=== PATIENT | female | born 1960 | race Caucasian/White ===

== ENCOUNTER 2020-03-14 09:30 | Outpatient (REF) | payer OTHER, SELFPAY | END 2020-03-14 09:31 | disposition home or self-care (01) | LOC: HO.HMGCLDS 09:30 | PROVIDERS: PCP Internal Medicine; Visit Provider Internal Medicine | DX: Z20.828 Contact with and (suspected) exposure to other viral communicable diseases (principal) | CPT/HCPCS: C9803; U0003 ==

== ENCOUNTER 2020-05-23 13:49 | Outpatient (REF) | payer OTHER, SELFPAY ==
[2020-05-23 16:37] LABS: MANUAL DIFF FLAG NO
[2020-05-23 16:40] LABS: Basophils Absolute Auto 0.1 X10*3/uL (0.0-0.2); Basophils Percent Auto 0.9 % (0-2); Eosinophils Absolute Auto 0.1 X10*3/uL (0.0-0.4); Hematocrit 36.8 % (37-47); Hemoglobin 11.7 g/dl (12.0-16.0); Imm Gran Abs Auto 0.02 X10*3/uL (0.00-0.03); Imm Gran Pct Auto 0.3 % (0.0-0.4); Lymphocytes Absolute Auto 1.9 X10*3/uL (1.2-4.9); Lymphocytes Percent Auto 29.4 % (20-40); Mean Corpuscular HGB Conc 31.8 g/dl (31.0-35.0); Mean Corpuscular Hemoglobin 28.4 pg (27.0-33.0); Mean Corpuscular Volume 89.3 fL (80-98); Mean Platelet Volume 10.8 fL (9.4-12.3); Monocytes Absolute Auto 0.4 X10*3/uL (0.1-1.2); Monocytes Percent Auto 6.7 % (2-11); Neutrophils Percent Auto 60.7 % (45-73); Platelet Count 311 X10*3/uL (160-400); Red Blood Count 4.12 X10*6/uL (4.20-5.50); Red Cell Distribution Width 14.2 % (11.0-16.0); White Blood Count 6.5 X10*3/uL (4.8-10.8)
[2020-05-23 16:44] LABS: Appearance Urine CLEAR; Color Urine YELLOW; Glucose Urine UA NEG (NEG); Leukocyte Esterase Urine 1+ (NEG); Nitrite Urine NEG (NEG); Specific Gravity - Urine >= 1.030 (1.005-1.025); Urine Blood NEG (NEG); Urine Ketones NEG (NEG); Urine Protein NEG (NEG-TRACE)
[2020-05-23 16:49] LABS: Bacteria Urine 1+ /LPF; RBC Urine 0 /HPF (0); Squamous Epithelial Cell Urine 1+ /LPF; WBC Urine 0-2 /HPF (0-4)
[2020-05-23 17:05] LABS: Alanine Aminotransferase 19 U/L (0-31); Albumin Level 4.1 g/dL (3.5-5.0); Alkaline Phosphatase 60 U/L (39-117); Anion Gap 13 (12-20); Aspartate Amino Transferase 20 U/L (5-31); Bilirubin Total 0.3 mg/dL (0.0-1.0); Blood Urea Nitrogen 22 mg/dL (9-16); Calcium 9.1 mg/dL (8.4-10.2); Carbon Dioxide 28 mmol/L (22-29); Chloride 104 mmol/L (96-108); Cholesterol 224 mg/dL; Estimated Glomerular Filt Rate 46; Glucose Random 104 mg/dL (60-115); HDL Cholesterol 71 mg/dL; LDL Cholesterol Calculated 127 mg/dl; Potassium 4.9 mmol/l (3.3-5.1); Sodium 140 mmol/L (135-145); Total Protein 7.2 g/dL (6.5-8.0); Triglycerides 130 mg/dL
[2020-05-23 17:16] LABS: Anion Gap 14 (12-20); Blood Urea Nitrogen 22 mg/dL (9-16); Carbon Dioxide 28 mmol/L (22-29); Chloride 102 mmol/L (96-108); Estimated Glomerular Filt Rate 47; Glucose Random 100 mg/dL (60-115); Potassium 4.6 mmol/l (3.3-5.1); Sodium 139 mmol/L (135-145)
[2020-05-23 17:26] LABS: SARS COV2 IgG Positive (Negative)
[2020-05-23 17:27] LABS: Free T4 (Free Thyroxine) 1.01 ng/dL (0.71-1.85); Thyroid Stimulating Hormone 1.04 uIU/mL (0.32-4.0); Vitamin D 25-OH Total 24.8 ng/mL (>30)
[2020-05-23 17:29] LABS: Erythrocyte Sedimentation Rate 18 MM/HR (0-20)
[2020-05-23 17:49] LABS: Folate 15.3 ng/mL (> or = 4.0); Vitamin B12 749 pg/mL (200-900)
[2020-05-24 18:37] LABS: Lyme Abs Screen <0.90 index
[2020-05-24 20:58] LABS: IgA 236 mg/dL (70-320); IgG 1474 mg/dL (600-1540); IgM 29 mg/dL (50-300)
== END 2020-05-23 13:50 | disposition home or self-care (01) ==
LOC: HO.HMGCLDS 13:49
PROVIDERS: PCP Internal Medicine; Visit Provider Psychiatry & Neurology Neurology
DX: G62.9 Polyneuropathy, unspecified (principal); I10 Essential (primary) hypertension; E78.00 Pure hypercholesterolemia, unspecified; F41.9 Anxiety disorder, unspecified; K21.9 Gastro-esophageal reflux disease without esophagitis; Z01.84 Encounter for antibody response examination
CPT/HCPCS: 36415; 80051; 80053; 80061; 81001; 82306; 82565; 82607; 82746; 82784; 82947; 84439; 84443; 84520; 85025; 85652; 86038; 86039; 86334; 86618; 86769

== ENCOUNTER 2020-05-31 09:15 | Outpatient (REF) | payer OTHER, SELFPAY ==
[2020-05-31 09:56] LABS: Glucose Urine UA NEG (NEG); Leukocyte Esterase Urine 1+ (NEG); Nitrite Urine NEG (NEG); Specific Gravity - Urine 1.025 (1.005-1.025); Urine Blood NEG (NEG); Urine Ketones NEG (NEG); Urine Protein NEG (NEG-TRACE)
[2020-05-31 10:10] LABS: Appearance Urine HAZY; Color Urine YELLOW
[2020-05-31 10:15] LABS: Bacteria Urine TRACE /LPF; Mucus Urine 1+ /LPF; RBC Urine 0 /HPF (0); Squamous Epithelial Cell Urine 1+ /LPF; WBC Urine 0-2 /HPF (0-4)
== END 2020-05-31 09:16 | disposition home or self-care (01) ==
LOC: HO.LAB 09:15
PROVIDERS: PCP Internal Medicine; Visit Provider Internal Medicine
DX: I10 Essential (primary) hypertension (principal)
CPT/HCPCS: 81001

== ENCOUNTER 2020-07-04 14:48 | Outpatient (REF) | payer OTHER, SELFPAY ==
--- NOTE | ~2020-07-04 | MM_ITS ---
EXAMINATION: MM SCREENING DIGITAL BREAST TOMOSYNTHESIS, BILATERAL CLINICAL INFORMATION: Screening. Asymptomatic. The lifetime risk of breast cancer based on the Tyrer-Cuzick Model is 12%. COMPARISON: Mammography: 06/29/2019, 02/24/2018, 02/06/2017 TECHNIQUE: Digital breast tomosynthesis is performed in both the craniocaudal and mediolateral oblique views along with computer-aided detection (CAD). Synthesized 2D images are generated from the tomosynthesis. FINDINGS: The breasts are almost entirely fatty (ACR BI-RADS breast composition Category a). There are no significant masses, abnormal calcifications, or other abnormalities. Background stromal markings are stable. There is biopsy clip marker again seen posterior 3:00 left breast. MM/MM tomosynthesis screening BI IMPRESSION: No mammographic evidence of malignancy. ASSESSMENT: BI-RADS 1: Negative RECOMMENDATION: Routine annual mammography screening. This patient's information was entered into a reminder system with a target due date for their next mammogram.
== END 2020-07-04 14:49 | disposition home or self-care (01) ==
LOC: HO.MAMMO 14:48
PROVIDERS: PCP Internal Medicine; Visit Provider Internal Medicine
DX: Z12.31 Encounter for screening mammogram for malignant neoplasm of breast (principal)
CPT/HCPCS: 77063; 77067

== ENCOUNTER 2020-09-11 13:56 | Outpatient (REF) | payer OTHER, SELFPAY ==
[2020-09-11 16:34] LABS: MANUAL DIFF FLAG NO
[2020-09-11 16:40] LABS: Basophils Absolute Auto 0.1 X10*3/uL (0.0-0.2); Basophils Percent Auto 0.8 % (0-2); Eosinophils Absolute Auto 0.1 X10*3/uL (0.0-0.4); Eosinophils Percent Auto 1.5 % (0-4); Hematocrit 35.9 % (37-47); Hemoglobin 11.5 g/dl (12.0-16.0); Imm Gran Abs Auto 0.01 X10*3/uL (0.00-0.03); Imm Gran Pct Auto 0.2 % (0.0-0.4); Immature Retic Fraction 8.5 % (3.0-15.9); Lymphocytes Percent Auto 31.2 % (20-40); Mean Corpuscular Hemoglobin 28.1 pg (27.0-33.0); Mean Corpuscular Volume 87.8 fL (80-98); Mean Platelet Volume 10.8 fL (9.4-12.3); Monocytes Absolute Auto 0.4 X10*3/uL (0.1-1.2); Monocytes Percent Auto 6.3 % (2-11); Neutrophils Absolute Auto 3.9 X10*3/uL (2.0-8.3); Platelet Count 299 X10*3/uL (160-400); Red Blood Count 4.09 X10*6/uL (4.20-5.50); Red Cell Distribution Width 13.8 % (11.0-16.0); Retic HGB Equivalent 31.8 pg (30.0-35.0); Reticulocyte Percent 1.2 % (0.5-1.8); White Blood Count 6.5 X10*3/uL (4.8-10.8)
[2020-09-11 16:46] LABS: Glucose Urine UA NEG (NEG); Leukocyte Esterase Urine 1+ (NEG); Nitrite Urine NEG (NEG); PH 5.5 (5.0-8.0); Specific Gravity - Urine >= 1.030 (1.005-1.025); Urine Blood NEG (NEG); Urine Ketones NEG (NEG); Urine Protein NEG (NEG-TRACE)
[2020-09-11 16:48] LABS: Appearance Urine CLEAR; Color Urine YELLOW
[2020-09-11 16:52] LABS: Bacteria Urine TRACE /LPF; RBC Urine 0 /HPF (0); Squamous Epithelial Cell Urine 1+ /LPF
[2020-09-11 17:02] LABS: Alanine Aminotransferase 25 U/L (0-31); Albumin Level 3.9 g/dL (3.5-5.0); Alkaline Phosphatase 62 U/L (39-117); Anion Gap 14 (12-20); Aspartate Amino Transferase 23 U/L (5-31); Bilirubin Total 0.3 mg/dL (0.0-1.0); Blood Urea Nitrogen 18 mg/dL (9-16); Carbon Dioxide 25 mmol/L (22-29); Chloride 102 mmol/L (96-108); Estimated Glomerular Filt Rate 52; Glucose Random 115 mg/dL (60-115); Iron 55 mcg/dL (30-160); Percent Iron Saturation 16 % (15-50); Potassium 4.1 mmol/L (3.3-5.1); Sodium 137 mmol/L (135-145); Total Iron Binding Capacity 340 mcg/dL (228-428); Unsaturated Iron Binding 285 ug/dL
[2020-09-11 17:22] LABS: Ferritin 30 ng/mL (10-250)
[2020-09-11 17:36] LABS: Folate 17.3 ng/mL (> or = 4.0); Vitamin B12 732 pg/mL (200-900)
== END 2020-09-11 13:57 | disposition home or self-care (01) ==
LOC: HO.HMGCLDS 13:56
PROVIDERS: PCP Internal Medicine; Visit Provider Internal Medicine
DX: N28.9 Disorder of kidney and ureter, unspecified (principal); D64.9 Anemia, unspecified
CPT/HCPCS: 36415; 80053; 81001; 82607; 82728; 82746; 83540; 85025; 85045

== ENCOUNTER 2020-11-27 10:23 | Outpatient (REF) | payer OTHER, SELFPAY ==
[2020-12-01 01:01] LABS: Arsenic, 24H Urine 14 mcg/L (<=80); Cadmium, 24H Urine <0.5 mcg/L (<=5.0); Lead, 24H Urine <10 mcg/L (<80); Mercury, 24H Urine <4 mcg/L (<=20)
== END 2020-11-27 10:24 | disposition home or self-care (01) ==
LOC: HO.LNP 10:23
PROVIDERS: Visit Provider Psychiatry & Neurology Neurology
DX: G62.9 Polyneuropathy, unspecified (principal)
CPT/HCPCS: 82175; 82300; 83655; 83825

== ENCOUNTER → 2021-01-23 11:22 | Outpatient (BNVA) | payer OTHER, SELFPAY | PROVIDERS: PCP Internal Medicine; Referring Provider Internal Medicine; Visit Provider Surgery Vascular Surgery ==

== ENCOUNTER 2021-01-29 12:50 | Outpatient (REF) | payer OTHER, SELFPAY ==
--- NOTE | ~2021-01-29 | US_ITS ---
EXAMINATION: BILATERAL LOWER EXTREMITY VENOUS ULTRASOUND (Reflux Exam) CLINICAL INDICATION: Lower extremity varicose veins with insufficiency. COMPARISON: None. TECHNIQUE: Color flow triplex imaging and compression Doppler was performed to evaluate both the deep and the superficial systems bilaterally. To evaluate the superficial system, the examination was performed in the upright position. Color-flow Doppler ultrasound and compression ultrasound were utilized. In addition, maneuvers were utilized to demonstrate reflux. FINDINGS: 1. DEEP VENOUS ULTRASOUND OF THE RIGHT LOWER EXTREMITY: Common Femoral Vein: Compressible, normal respiratory variation and augmented flow. Femoral Vein: Compressible, normal color flow and augmentation. Popliteal Vein: Compressible, normal augmentation. Deep Reflux: There is greater than 1 second of reflux within the femoral vein and greater than 1 second of reflux within the popliteal vein. There is no evidence of a Neal's cyst. 2. SUPERFICIAL ULTRASOUND WITH DOPPLER OF RIGHT LOWER EXTREMITY GREAT SAPHENOUS VEIN: Saphenofemoral junction: 1.2 cm; Reflux: Greater than 3 seconds. The great saphenous vein from the proximal thigh to the ankle is not visualized consistent with prior treatment. DUPLICATED GREAT SAPHENOUS VEIN: Lateral, 0.8 cm at the junction, greater than 2.4 seconds of reflux. SMALL SAPHENOUS VEIN: Saphenopopliteal junction: 0.3 cm; No evidence of reflux. Midcalf: 0.2 cm; No evidence of reflux. Distal calf: 0.4 cm; No evidence of reflux. VEIN OF GIACOMINI: None imaged. PERFORATORS: None imaged VARICOSITIES: Proximal thigh arising from the very proximal saphenous vein at the junction, 0.7 cm, greater than 2 seconds of reflux. Distal thigh, 0.4 cm, greater than 2.6 seconds of reflux. Midcalf, 0.4 cm, greater than 3.3 seconds of reflux. Distal calf, 0.3 cm, no reflux. At knee, 0.5 cm, occluded. 3. DEEP VENOUS ULTRASOUND OF THE LEFT LOWER EXTREMITY: Common Femoral Vein: Compressible, normal respiratory variation and augmented flow. Femoral Vein: Compressible, normal color flow and augmentation. Popliteal Vein: Compressible, normal augmentation. Deep Reflux: There is reflux throughout the deep system measuring 0.9 seconds at the common femoral vein, greater than 3 seconds within the femoral vein and greater than 0.8 seconds within the popliteal vein. There is a 5.5 x 2.3 x 3.3 cm left popliteal fossa Neal's cyst. 4. SUPERFICIAL ULTRASOUND WITH DOPPLER OF LEFT LOWER EXTREMITY GREAT SAPHENOUS VEIN: Saphenofemoral junction: 1.1 cm; Reflux: Greater than 2.6 seconds. Proximal thigh: 0.7 cm; Reflux: No evidence of reflux. Midthigh: Not visualized. Above knee: Not visualized. At knee: 0.7 cm; Reflux: 1.3 seconds Below knee: 0.6 cm; Reflux: 1.2 seconds Midcalf: 0.3 cm; Reflux: No evidence of reflux. Ankle: 0.2 cm; Reflux: No evidence of reflux. DUPLICATED GREAT SAPHENOUS VEIN: Lateral, 0.5 cm, no reflux. SMALL SAPHENOUS VEIN: Saphenopopliteal junction: 0.3 cm; No evidence of reflux. Midcalf: 0.2 cm; No evidence of reflux. Distal calf: 0.2 cm; No evidence of reflux. VEIN OF GIACOMINI: None Imaged. PERFORATORS: Proximal calf, 0.2 cm, no reflux. VARICOSITIES: Proximal thigh, 0.8 cm, greater than 2.7 seconds of reflux. Distal thigh, 0.7 cm, greater than 2.9 seconds of reflux. Proximal calf, 0.5 cm, greater than 3.2 seconds of reflux. Midcalf, 0.2 cm, greater than 1.2 seconds of reflux. US/US venous duplex LE BI IMPRESSION: 1. The right great saphenous vein is patent at the saphenofemoral junction demonstrating reflux. The remainder of the great saphenous vein from the proximal thigh to the ankle is not visualized consistent with prior treatment. 2. There is evidence of left great saphenous venous insufficiency as above. The left great saphenous vein is not seen at the midthigh and above the knee consistent with prior treatment. 3. Duplicated lateral right great saphenous venous insufficiency. 4. Bilateral refluxing varicosities. 5. Bilateral deep venous insufficiency. 6. No evidence of DVT. 7. Occluded varicosity at the right knee consistent with superficial thrombophlebitis.
== END 2021-01-29 12:51 | disposition home or self-care (01) ==
LOC: HO.US 12:50
PROVIDERS: PCP Internal Medicine; Visit Provider Surgery Vascular Surgery
DX: I83.893 Varicose veins of bilateral lower extremities with other complications (principal); I83.12 Varicose veins of left lower extremity with inflammation
CPT/HCPCS: 93970

== ENCOUNTER 2021-02-05 10:26 | Day surgery (SDC) | payer OTHER, SELFPAY ==
[2021-01-16 14:59] LABS: MANUAL DIFF FLAG NO
[2021-01-16 15:02] LABS: Basophils Absolute Auto 0.1 X10*3/uL (0.0-0.2); Eosinophils Absolute Auto 0.1 X10*3/uL (0.0-0.4); Hematocrit 37.7 % (37-47); Hemoglobin 11.9 g/dl (12.0-16.0); Imm Gran Abs Auto 0.04 X10*3/uL (0.00-0.03); Imm Gran Pct Auto 0.6 % (0.0-0.4); Lymphocytes Absolute Auto 2.3 X10*3/uL (1.2-4.9); Lymphocytes Percent Auto 32.3 % (20-40); Mean Corpuscular HGB Conc 31.6 g/dl (31.0-35.0); Mean Corpuscular Hemoglobin 28.1 pg (27.0-33.0); Mean Corpuscular Volume 88.9 fL (80-98); Mean Platelet Volume 10.3 fL (9.4-12.3); Monocytes Absolute Auto 0.6 X10*3/uL (0.1-1.2); Monocytes Percent Auto 8.5 % (2-11); Neutrophils Percent Auto 55.6 % (45-73); Platelet Count 293 X10*3/uL (160-400); Red Blood Count 4.24 X10*6/uL (4.20-5.50); White Blood Count 7.1 X10*3/uL (4.8-10.8)
[2021-01-16 15:15] LABS: Iron 54 mcg/dL (30-160); Percent Iron Saturation 17 % (15-50); Total Iron Binding Capacity 311 mcg/dL (228-428); Unsaturated Iron Binding 257 ug/dL
[2021-01-16 15:35] LABS: Ferritin 40 ng/mL (10-250)
[2021-01-31 10:39] VITALS: BMI 41.5
[2021-02-05 10:59] VITALS: BP 154/80; PULSE 80; RESP 16; TEMP 36.6; O2SAT 97; BMI 40.6
--- NOTE | 2021-02-05 11:01 | P.CONAN_ITS ---
[facility] Active Problems Active Problems: All Active Problems (Updated 01/31/21 @ 10:36 by Gabriela parry RN) Renal insufficiency (Acute) Anemia (Acute) Hip pain, left (Acute) Thrombophlebitis (Acute) Varicose veins of left lower extremity with inflammation (Acute) COVID-19 virus infection (Acute) Hypertension (Acute) Obesity (Acute) Vitamin D deficiency (Acute) Anxiety (Acute) Hypercholesterolemia (Acute) GERD (gastroesophageal reflux disease) (Acute) Asthma (Acute) Peripheral neuropathy (Acute) Past Medical History Medical History Anxiety Asthma COVID-19 virus infection GERD (gastroesophageal reflux disease) Hiatal hernia Hypercholesterolemia Hypertension Iron deficiency anemia Migraine Obesity Peripheral neuropathy Peripheral vascular disease Synovial cyst of popliteal space [Neal], left knee Vitamin D deficiency Family History Family History Father Lung cancer Mother Lung cancer Paternal Grandfather Lung cancer Paternal Uncle Lung cancer Sister Pancreatic cancer Family history of problems with anesthesia: No Surgical History Surgical History History of appendectomy History of carpal tunnel release History of section History of esophagogastroduodenoscopy (EGD) History of vein stripping Hx of colonoscopy History of Problems with Anesthesia: No Social History Social History Housing: House Alcohol intake: current Alcohol intake frequency: a few times a week Alcohol type: beer and wine Patient Tobacco Use Status: Former Tobacco user Advance Directives: No Advance Directives Information Provided: Yes service: No Current occupational status: retired Meds Allergies Allergy/AdvReac Type Severity Reaction Status Date / Time codeine Allergy Unknown Unknown Verified 01/31/21 10:38 latex [Latex] Allergy Unknown BURNING Verified 01/31/21 10:38 oxycodone [Oxycodone] Allergy Unknown FAINT/TACHY Verified 01/31/21 10:38 CARDIA Active Medications: Current Medications Lactated Ringer's (Lr) 1,000 mls @ 50 mls/hr IVCONT .Q20H KRISTIN Sodium Biphosphate/Sodium Phosphate (Sodium Phosphate,Mchenry-Dibasic 133 Ml Enema) 133 ml MS ONCE PRN PRN Reason: Poor Colonoscopy Prep Results Home Medications Medication Instructions Recorded Confirmed Last Taken Type alprazolam 0.5 mg tablet 0.5 mg PO BEDTIME PRN 03/14/20 01/31/21 Unknown History jlpeeed-hwovdhsuapaiu-jjzgiczk 250 2 tab PO Q6H PRN 03/14/20 01/31/21 Unknown History mg-250 mg-65 mg tablet (Excedrin Migraine) hydrocortisone 2.5 % topical cream 1 applic TOPICAL ONCE PRN g 03/14/20 01/31/21 Unknown History gabapentin 300 mg capsule 300 mg PO BEDTIME 01/23/21 01/31/21 Unknown History Exam Exam Date and Time: February 05, 2021 1101 Height,Weight and Vital Signs: Height 5 ft 1 in Weight 99.79 kg Pertinent Lab Results Pertinent Lab Results: Laboratory Tests 01/16/21 01/16/21 14:50 14:50 WBC 7.1 RBC 4.24 Hgb 11.9 L Hct 37.7 MCV 88.9 MCH 28.1 MCHC 31.6 RDW 14.0 Plt Count 293 MPV 10.3 Immature Gran % (Auto) 0.6 H Neut % (Auto) 55.6 Lymph % (Auto) 32.3 Mchenry % (Auto) 8.5 Eos % (Auto) 2.0 Baso % (Auto) 1.0 Lymph # (Auto) 2.3 Mchenry # (Auto) 0.6 Eos # (Auto) 0.1 Baso # (Auto) 0.1 Abs Immat Gran (auto) 0.04 H Absolute Neuts (auto) 4.0 Absolute Nucleated RBC 0.000 Nucleated RBC % (auto) 0.0 Iron 54 TIBC 311 % Saturation 17 Unsat Iron Binding 257 Ferritin 40 Airway Mallampati Class: II (Caps laterally) TM Dist: >3cm Neck ROM: Full Heart: rrr Lungs: cta Assessment and Plan Assessment Anesthesia Assessment: Anesthesia Plan Discussed and Chart Reviewed Final Anesthetic Review Family History of Problems with Anesthesia: No History of Problems with Anesthesia: No NPO: Yes ASA Class: III Final Preanesthetic Review: No Changes in Pt Med Stat and Consent Obtained/Reviewed Patient Risk: Intermediate Procedure Risk: Intermediate Anesthetic Plan Anesthetic Plan: MAC: Disposition: Standard PACU
[2021-02-05] MEDS: Lactated Ringers 1,000 ML 50 ML IVCONT (11:09)
[2021-02-05 12:31] VITALS: BP 141/92; PULSE 78; RESP 16; TEMP 36.8; O2SAT 97
--- NOTE | 2021-02-05 12:41 | PM.OP ---
Brief Operative Note Date of Service: 02/05/21 Pre-op diagnosis: Anemia, GERD Post-op diagnosis: other (Hiatal hernia, Gastric polyps, Diverticulosis) Procedure: EGD with biopsies, Colonoscopy to the cecum and TI Surgeon: Rolando Miner Anesthesia: MAC Was an Trailer Body Assembler used for this Procedure?: No Estimated blood loss (mL): 3.0 Pathology: other (A. Descending duodenum B. Gastric polyps C. EG Junction at 35cm) Condition: stable Disposition: PACU
[2021-02-05 12:46] VITALS: BP 129/73; PULSE 69; RESP 18; O2SAT 97
--- NOTE | 2021-02-05 12:57 | OP_ITS ---
SURGEON: Rolando Miner MD INDICATIONS: The patient presents for evaluation of iron-deficiency anemia and gastroesophageal reflux. Full consent has been obtained from her for both procedures, including risks of bleeding and perforation. PREOPERATIVE DIAGNOSIS: POSTOPERATIVE DIAGNOSIS: PROCEDURE PERFORMED: Esophagogastroduodenoscopy with biopsies, and colonoscopy to the cecum and terminal ileum. ESTIMATED BLOOD LOSS: COMPLICATIONS: ANESTHESIA: Monitored anesthesia care. ASSISTANTS: SPECIMENS: PREOPERATIVE DIAGNOSES: Iron-deficiency anemia and gastroesophageal reflux. POSTOPERATIVE DIAGNOSES: Iron-deficiency anemia and gastroesophageal reflux, hiatal hernia, gastric polyps, rule out celiac disease, diverticulosis, and internal hemorrhoids. DESCRIPTION OF PROCEDURE: The patient was placed in the left lateral decubitus position. The Olympus video gastroscope was passed in the posterior oropharynx and upper esophagus under direct vision. The scope was passed slowly into the distal esophagus. The gastroesophageal junction appeared at 35 cm. Extending from this to 34 cm, were some areas of irregularity and possible small areas of Garcia's mucosa. There was no evidence of any esophagitis nor any lesions. There was a moderate-sized hiatal hernia. The scope was advanced to pylorus and the duodenum was cannulated to the descending portion. The duodenum including the bulb appeared normal without mass or ulceration. Biopsies were obtained from the second and third portions of duodenum. The scope was withdrawn back into the stomach. The gastric antrum and body appeared normal with good peristalsis. The scope was retroflexed visualizing the proximal stomach carefully, which appeared normal, other than multiple hyperplastic appearing gastric polyps, several of which were biopsied. There was no mass nor ulceration. The scope was straightened out and withdrawn back into the esophagus. Biopsies were obtained at the EG junction between 34 and 35 cm. Proximal to this, the esophageal mucosa appeared normal. The scope was withdrawn from the patient. She was turned around for the colonoscopy. The digital rectal exam revealed no abnormalities. The Olympus video pediatric colonoscope was entered into the rectum and advanced to the cecum with the assistance of abdominal wall pressure. Once in the cecum, I did identify normal-appearing cecal pouch with appendiceal orifice and a normal-appearing ileocecal valve. The terminal ileum was cannulated and appeared normal. The scope was withdrawn back in the colon. The entire cecum and ileocecal valve appeared normal. The scope was then slowly withdrawn assessing all mucosal surfaces carefully. Preparation was excellent. I did not visualize any sign of polyps, colitis, nor angiodysplasia. There was a mild amount of sigmoid diverticulosis. In the rectum, scope was retroflexed visualizing small internal hemorrhoids, but no other pathology. The rectal mucosa appeared normal. The scope was straightened out and withdrawn from the patient. She tolerated both procedures well and was returned to the recovery area in stable condition. IMPRESSION: 1. Hiatal hernia, gastroesophageal reflux, rule out Garcia's esophagus. 2. Gastric polyps. 3. Rule out celiac disease. 4. Diverticulosis. 5. Internal hemorrhoids. PLAN: The results of biopsy will be checked. She will continue her omeprazole for continued symptomatic relief of her reflux. She was advised not to use any aspirin and NSAIDs for 1 week. She was advised to go back on her iron in regard to the anemia. Given today's negative colonoscopy, a negative colonoscopy in 2011, and no family history of colon cancer, I would recommend a repeat colonoscopy in 10 years for further screening. Laboratories in January showed an iron of 54, iron saturation of 17% and ferritin of 40. Her hemoglobin in January was 11.9 compared to a level of 11.5 in September. Her iron studies in January were very similar to the one is done in October. At this point, I do not think she needs any further evaluation with anything such as a small bowel video capsule study given that her laboratories are very stable and she has had no signs of bleeding. She will continue iron. If things are stable, she will see me on a p.r.n. basis. MD CRISTHIAN Nance/KRYS / [id number]
== END 2021-02-05 13:10 | disposition home or self-care (01) ==
PROVIDERS: PCP Internal Medicine; Visit Provider Internal Medicine
PROC: (CPT 45378; principal; 2021-02-05 12:10)
DX: D50.9 Iron deficiency anemia, unspecified (principal); K57.30 Diverticulosis of large intestine without perforation or abscess without bleeding; K64.8 Other hemorrhoids; K21.9 Gastro-esophageal reflux disease without esophagitis; K31.7 Polyp of stomach and duodenum; K44.9 Diaphragmatic hernia without obstruction or gangrene; I10 Essential (primary) hypertension; J45.909 Unspecified asthma, uncomplicated; Z79.899 Other long term (current) drug therapy; Z79.51 Long term (current) use of inhaled steroids; Z86.16 Personal history of COVID-19; Z87.891 Personal history of nicotine dependence
CPT/HCPCS: 45378; 43239; 36415; 82728; 83540; 85025; 88305; 88342

== ENCOUNTER 2021-03-12 11:02 | Outpatient (REF) | payer OTHER, SELFPAY ==
--- NOTE | ~2021-03-12 | XR_ITS ---
EXAMINATION: XR KNEE, RIGHT CLINICAL INFORMATION: Pain COMPARISON: None TECHNIQUE: Four views of the right knee. FINDINGS: Bone alignment is normal. No fracture or dislocation is seen. The femoral tibial joints are normal. There are small osteophytes at the patellofemoral joint. There is no joint effusion. XR/XR knee RT 4V IMPRESSION: Small osteophytes at the patellofemoral joint.
== END 2021-03-12 11:03 | disposition home or self-care (01) ==
LOC: HO.XRAY 11:02
PROVIDERS: PCP Internal Medicine; Visit Provider Internal Medicine
DX: M25.561 Pain in right knee (principal)
CPT/HCPCS: 73564

== ENCOUNTER → 2021-04-04 08:53 | Outpatient (BNVA) | payer OTHER, SELFPAY | PROVIDERS: PCP Internal Medicine; Visit Provider Physician Assistant | DX: S83.8X1A Sprain of other specified parts of right knee, initial encounter (principal); M17.11 Unilateral primary osteoarthritis, right knee | CPT/HCPCS: 20610; J1040 ==

== ENCOUNTER → 2021-05-16 13:35 | Outpatient (BNVA) | payer OTHER, SELFPAY | PROVIDERS: PCP Internal Medicine; Visit Provider Physician Assistant ==

== ENCOUNTER 2021-06-01 09:00 | Outpatient (RCR) | payer OTHER, SELFPAY ==
--- NOTE | 2021-04-20 10:04 | MHC.PT.EP ---
[facility] [place] Office [place] Office [place] Office [address] Felicita Guillory [address] [phone] F: [phone] F: [phone] F: [phone] F: [phone] Physical Therapy Plan of Care Date of Evaluation: Date of Surgery: Diagnosis: unilateral primary OA injury R meniscus Assessment: 61 y/o F referred to PT with primary OA R knee and injury of R meniscus. Reports pain and difficulty with stepping in/out of bath, standing, walking, stairs (step to), climbing ladder, and riding bike. S/s consistent with menisical injury. Examination shows decreased R knee AROM 0-2-100, decreased R hip/knee strength, TTP R lateral mensicus, significant lateral posiitoning of patella and lateral tracking of patella, and impaired gait pattern. Recommend PT 2x/week for 5 weeks to address impairments, implement HEP, and optimize functional mobility. Pt has high co-pay and would like to come 1x/week. Frequency and Duration: The patient will be seen 1x/week for 5 weeks Short Term Goals: 3 weeks 1. I with HEP 2. Improve knee AROM 0-110 Mcfp Goals: 5 weeks 1. I with HEP and self management of sx 2. Pt will improve R LE strength by one MMT to facilitate walking 3. Pt will improve knee flexion to 115 to facilitate ascend/descend stairs in step through pattern Treatment Plan: Modalities to reduce pain, spasms and effusion. Manual therapy to restore motion and function. Therapeutic exercise to improve strength and flexibility. Neuromuscular re-education for posture and balance. Therapeutic activities to return to functional activities of daily living. Electronically signed by: Hilary Engle PT Please sign and return to therapist. Thank you for your referral.
--- NOTE | 2021-06-01 10:16 | MHC.PT.DC ---
[facility] [place] Office [place] Office [place] Office [address] Felicita Guillory [address] [phone] F: [phone] F: [phone] F: [phone] F: [phone] Physical Therapy Discharge Report Diagnosis: unilateral primary OA injury R meniscus Date of Surgery: Date of Evaluation: 04/20/21 Date of Discharge: 06/01/21 Treatments to Date: 4 Cancellations to Date: 0 No Shows to Date: 0 Discharge Status: Improved Function Independent with HEP Discharge Summary: Fatigue following 3 sets of SLR. Discussed exercise progression for self management and she will also start senior center classes 2x/week. She reports feeling ready for d/c and will continue HEP. No further questions. Electronically signed by: Hilary Engle PT Please sign and return to therapist. Thank you for your referral.
== END 2021-06-01 10:18 | disposition home or self-care (01) ==
LOC: HO.PTCHIC 09:00
PROVIDERS: PCP Internal Medicine; Visit Provider Physician Assistant
DX: M17.11 Unilateral primary osteoarthritis, right knee (principal); S83.8X1D Sprain of other specified parts of right knee, subsequent encounter
CPT/HCPCS: 97110; 97140; 97161

== ENCOUNTER → 2021-07-30 10:27 | Outpatient (REF) | payer OTHER, SELFPAY ==
--- NOTE | 2021-07-30 10:32 | ECG_ITS ---
Test Reason : PREOP Blood Pressure : / mmHG Vent. Rate : 069 BPM Atrial Rate : 069 BPM P-R Int : 172 ms QRS Dur : 078 ms QT Int : 364 ms P-R-T Axes : 034 021 032 degrees QTc Int : 390 ms Normal sinus rhythm Normal ECG When compared with ECG of 30-JAN-2011 21:13, No significant change was found Referred By: Yang Cat Electronically Signed By:THIERRY MCGOWAN
[2021-07-30 10:42] LABS: MANUAL DIFF FLAG NO
[2021-07-30 11:20] LABS: Basophils Absolute Auto 0.1 X10*3/uL (0.0-0.2); Basophils Percent Auto 1.1 % (0-2); Eosinophils Absolute Auto 0.1 X10*3/uL (0.0-0.4); Eosinophils Percent Auto 2.3 % (0-4); Hematocrit 39.1 % (37.0-47.0); Imm Gran Abs Auto 0.03 X10*3/uL (0.00-0.03); Imm Gran Pct Auto 0.5 % (0.0-0.4); Lymphocytes Absolute Auto 1.7 X10*3/uL (1.2-4.9); Lymphocytes Percent Auto 30.3 % (20-40); Mean Corpuscular HGB Conc 30.7 g/dl (31.0-35.0); Mean Corpuscular Hemoglobin 28.2 pg (27.0-33.0); Mean Platelet Volume 10.9 fL (9.4-12.3); Monocytes Absolute Auto 0.4 X10*3/uL (0.1-1.2); Monocytes Percent Auto 7.6 % (2-11); Neutrophils Absolute Auto 3.3 x10*3/uL (2.0-8.3); Neutrophils Percent Auto 58.2 % (45-73); Platelet Count 275 X10*3/uL (160-400); Red Blood Count 4.25 X10*6/uL (4.20-5.50); Red Cell Distribution Width 13.6 % (11.0-16.0); White Blood Count 5.6 X10*3/uL (4.8-10.8)
[2021-07-30 11:26] LABS: Prothrombin Time 11.7 SEC (9.9-13.0)
[2021-07-30 12:08] LABS: Alanine Aminotransferase 23 U/L (0-31); Albumin Level 3.9 g/dL (3.5-5.0); Alkaline Phosphatase 63 U/L (39-117); Anion Gap 11 (12-20); Aspartate Amino Transferase 21 U/L (5-31); Bilirubin Total 0.3 mg/dL (0.0-1.0); Blood Urea Nitrogen 12 mg/dL (9-16); Calcium 9.3 mg/dL (8.4-10.2); Carbon Dioxide 28 mmol/L (22-29); Chloride 105 mmol/L (96-108); Estimated Glomerular Filt Rate 59; Glucose Random 73 mg/dL (60-115); Potassium 4.8 mmol/L (3.3-5.1); Sodium 139 mmol/L (135-145)
== END ==
LOC: HO.CARD 10:27
PROVIDERS: PCP Internal Medicine; Visit Provider Nurse Practitioner Family
DX: Z01.818 Encounter for other preprocedural examination (principal); I10 Essential (primary) hypertension
CPT/HCPCS: 36415; 80053; 85025; 85610; 93005

== ENCOUNTER 2021-08-10 09:28 | Outpatient (REF) | payer OTHER, SELFPAY ==
--- NOTE | ~2021-08-10 | MM_ITS ---
EXAMINATION: MM SCREENING DIGITAL BREAST TOMOSYNTHESIS, BILATERAL CLINICAL INFORMATION: Screening. Asymptomatic. The lifetime risk of breast cancer based on the Tyrer-Cuzick Model is 6%. COMPARISON: Mammography: 07/04/2020, 06/29/2019, 02/24/2018 TECHNIQUE: Digital breast tomosynthesis is performed in both the craniocaudal and mediolateral oblique views along with computer-aided detection (CAD). Synthesized 2D images are generated from the tomosynthesis. Additional right MLO view is provided. FINDINGS: The breasts are almost entirely fatty (ACR BI-RADS breast composition Category a). Background stromal markings are similar to prior studies. There are no significant masses, abnormal calcifications, or other abnormalities. There is a biopsy clip marker again seen posterior 3:00 left breast. No significant changes. MM/MM tomosynthesis screening BI IMPRESSION: No mammographic evidence of malignancy. ASSESSMENT: BI-RADS 1: Negative RECOMMENDATION: Routine annual mammography screening. This patient's information was entered into a reminder system with a target due date for their next mammogram.
== END 2021-08-10 09:29 | disposition home or self-care (01) ==
LOC: HO.MAMMO 09:28
PROVIDERS: PCP Internal Medicine; Visit Provider Internal Medicine
DX: Z12.31 Encounter for screening mammogram for malignant neoplasm of breast (principal)
CPT/HCPCS: 77063; 77067

== ENCOUNTER 2022-07-29 08:20 | Outpatient (REF) | payer OTHER, SELFPAY ==
[2022-07-29 08:57] LABS: Binax Internal Control QC Valid; Binax Now Covid-19 Ag Negative (Negative); Binax Performed by: PAULP
== END 2022-07-29 08:21 | disposition home or self-care (01) ==
LOC: HO.HMGCLDS 08:20
PROVIDERS: PCP Internal Medicine; Visit Provider Internal Medicine
DX: J06.9 Acute upper respiratory infection, unspecified (principal); Z20.822 Contact with and (suspected) exposure to COVID-19
CPT/HCPCS: 87811; C9803

== ENCOUNTER 2022-08-16 09:35 | Outpatient (REF) | payer OTHER, SELFPAY ==
--- NOTE | ~2022-08-16 | MM_ITS ---
EXAMINATION: MM SCREENING DIGITAL BREAST TOMOSYNTHESIS, BILATERAL CLINICAL INFORMATION: Screening. Asymptomatic. The lifetime risk of breast cancer based on the Tyrer-Cuzick Model is 5.8%. COMPARISON: Mammography: August 10, 2021 and studies dating back to July 18, 2015 TECHNIQUE: Digital breast tomosynthesis is performed in both the craniocaudal and mediolateral oblique views along with computer-aided detection (CAD). Synthesized 2D images are generated from the tomosynthesis. FINDINGS: The breasts are almost entirely fatty (ACR BI-RADS breast composition Category a). There are no significant masses, abnormal calcifications, or other abnormalities. MM/MM tomosynthesis screening BI IMPRESSION: No significant changes from prior exam. ASSESSMENT: BI-RADS 1: Negative RECOMMENDATION: Routine annual mammography screening. This patient's information was entered into a reminder system with a target due date for their next mammogram.
== END 2022-08-16 09:36 | disposition home or self-care (01) ==
LOC: HO.MAMMO 09:35
PROVIDERS: PCP Internal Medicine; Visit Provider Internal Medicine
DX: Z12.31 Encounter for screening mammogram for malignant neoplasm of breast (principal)
CPT/HCPCS: 77063; 77067

== ENCOUNTER 2022-09-11 07:03 | Outpatient (REF) | payer OTHER, SELFPAY ==
[2022-09-11 07:21] LABS: MANUAL DIFF FLAG NO
[2022-09-11 07:37] LABS: Basophils Absolute Auto 0.1 X10*3/uL (0.0-0.2); Basophils Percent Auto 1.4 % (0-2); Eosinophils Absolute Auto 0.2 X10*3/uL (0.0-0.4); Eosinophils Percent Auto 3.3 % (0-4); Hematocrit 38.2 % (37.0-47.0); Imm Gran Abs Auto 0.03 X10*3/uL (0.00-0.03); Imm Gran Pct Auto 0.5 % (0.0-0.4); Lymphocytes Absolute Auto 2.4 X10*3/uL (1.2-4.9); Lymphocytes Percent Auto 36.9 % (20-40); Mean Corpuscular HGB Conc 31.4 g/dl (31.0-35.0); Mean Corpuscular Volume 89.3 fL (80.0-98.0); Mean Platelet Volume 10.4 fL (9.4-12.3); Monocytes Absolute Auto 0.5 X10*3/uL (0.1-1.2); Monocytes Percent Auto 7.2 % (2-11); Neutrophils Absolute Auto 3.2 x10*3/uL (2.0-8.3); Neutrophils Percent Auto 50.7 % (45-73); Platelet Count 291 X10*3/uL (160-400); Red Blood Count 4.28 X10*6/uL (4.20-5.50); Red Cell Distribution Width 14.6 % (11.0-16.0); Retic HGB Equivalent 33.1 pg (30.0-35.0); Reticulocyte Percent 1.5 % (0.5-1.8); Reticulocytes Absolute 0.062 X10*6/uL (0.026-0.095); White Blood Count 6.4 X10*3/uL (4.8-10.8)
[2022-09-11 08:30] LABS: Alanine Aminotransferase 16 U/L (0-31); Albumin Level 3.8 g/dL (3.5-5.0); Alkaline Phosphatase 66 U/L (39-117); Anion Gap 10 (12-20); Aspartate Amino Transferase 18 U/L (5-31); Bilirubin Total 0.5 mg/dL (0.0-1.0); Blood Urea Nitrogen 16 mg/dL (9-16); Carbon Dioxide 30 mmol/L (22-29); Chloride 106 mmol/L (96-108); Cholesterol 220 mg/dL; Estimated Glomerular Filt Rate 58; Glucose Random 97 mg/dL (60-115); HDL Cholesterol 67 mg/dL; LDL Cholesterol Calculated 138 mg/dl; Potassium 4.6 mmol/L (3.3-5.1); Sodium 141 mmol/L (135-145); Total Protein 6.8 g/dL (6.5-8.0); Triglycerides 77 mg/dL
[2022-09-11 09:02] LABS: Ferritin 58 ng/mL (10-250); Folate 11.8 ng/mL (> or = 4.0); Free T4 (Free Thyroxine) 0.83 ng/dL (0.71-1.85); Thyroid Stimulating Hormone 2.51 uIU/mL (0.32-4.0); Vitamin B12 973 pg/mL (200-900); Vitamin D 25-OH Total 25.3 ng/mL (>30)
== END 2022-09-11 07:04 | disposition home or self-care (01) ==
LOC: HO.LAB 07:03
PROVIDERS: PCP Internal Medicine; Visit Provider Internal Medicine
DX: I10 Essential (primary) hypertension (principal); E78.00 Pure hypercholesterolemia, unspecified; D64.9 Anemia, unspecified; E55.9 Vitamin D deficiency, unspecified; N28.9 Disorder of kidney and ureter, unspecified
CPT/HCPCS: 36415; 80053; 80061; 82306; 82607; 82728; 82746; 84439; 84443; 85025; 85045

== ENCOUNTER 2023-03-28 09:31 | Outpatient (AMB) | payer MEDICARE, SELFPAY ==
[2023-03-28 09:53] VITALS: BP 132/74; PULSE 80; TEMP 36.8; O2SAT 97; BMI 43.3
--- NOTE | 2023-03-28 09:53 | MHC.OFFWIV ---
Intake Vital Signs 03/28/23 09:53 Height 5 ft 1 in Weight 229 lb BMI 43.3 BP 132/74 Blood Pressure Location Rt brachial Position Sitting Pulse 80 Pulse Source Pulse Oximeter Temp 98.2 F Temp Source Temporal Artery Scan Pulse Oximetry (%) 97 Oxygen Delivery Method Room Air Intake Visit Reasons: EP ?Bronchitis Intake Note: pt is here for c/o possible bronchitis Patient Tobacco Use Status: Former Tobacco user Quit Date: quit 40 plus years ago Allergies codeine Allergy (Unknown, Verified 03/28/23 10:17) Unknown latex [Latex] Allergy (Unknown, Verified 03/28/23 10:17) BURNING oxycodone [Oxycodone] Allergy (Unknown, Verified 03/28/23 10:17) FAINT/TACHYCARDIA tramadol Adverse Reaction (Intermediate, Verified 03/28/23 10:17) ORELLANA Medication List - Last Reconciled 03/28/23 by Yuan Borja MD albuterol sulfate 90 mcg/actuation (ProAir HFA) 2 puffs inhalation Q6H PRN alprazolam 0.5 mg PO BEDTIME PRN 30 days upkabyk-jyhgxfjnkpgac-oohskgks 250-250-65 mg (Excedrin Migraine) 2 tabs PO Q6H PRN fluticasone furoate-vilanterol 100-25 mcg/dose (Breo Ellipta) 1 ea PO DAILY gabapentin 100 mg PO BEDTIME lisinopril 10 mg PO DAILY 90 days omeprazole 20 mg PO DAILY Do you need a note to return to daycare/school/sports/work: Yes HPI EP ?Bronchitis HPI Details 63 yr old female presents to the office for a sick visit. . Patient presents for a sick visit. Reporting symptoms of sinus congestion, sore throat and difficulty swallowing. Low-grade fever. No family member is sick. No recent travel. Patient reports symptoms of malaise and fatigue. [facility] Medical History Asthma Asthma, persistent controlled COVID-19 virus infection GERD (gastroesophageal reflux disease) Hiatal hernia Hip pain, left Hypercholesterolemia Hypertension Iron deficiency anemia Knee pain, right Migraine Obesity Peripheral neuropathy Peripheral vascular disease Pre-operative clearance Synovial cyst of popliteal space [Neal], left knee Thrombophlebitis Vitamin D deficiency Surgical History History of appendectomy History of carpal tunnel release History of section History of esophagogastroduodenoscopy (EGD) History of vein stripping Hx of colonoscopy Family History Father Lung cancer Mother Lung cancer Paternal Grandfather Lung cancer Paternal Uncle Lung cancer Sister Pancreatic cancer (Updated 06/27/22 @ 09:14 by Vern Saul MD) Household Members: Spouse Housing: House Are you a primary respiratory care practitioner to a significant other at home: No Do you presently have visiting nurse or other home services: No Alcohol intake: current Alcohol intake frequency: a few times a week Alcohol type: beer and wine Patient Tobacco Use Status: Former Tobacco user Quit Date: quit 40 plus years ago Tobacco use type: Cigarette Years Smoked: quit in the s e-Cigarette/Vaping Use: Never Used Second Hand Smoke Exposure: No service: No Current occupational status: retired Current occupation: rt handed Cognitive needs: No Hearing needs: No Vision needs: Yes (Glasses) Physical Exam Vital Signs: Last Vital Signs Temp 98.2 F 03/28/23 09:53 Pulse 80 03/28/23 09:53 BP 132/74 03/28/23 09:53 Pulse Ox 97 03/28/23 09:53 Oxygen Delivery Method Room Air 03/28/23 09:53 BMI result Body Mass Index 43.3 Const General: cooperative and healthy appearing Nutritional Appearance: well nourished Orientation/consciousness: patient oriented x3 Limitations: no limitations HEENT Head: Yes normal to inspection Eyes General: appearance normal, both eyes and all related structures Neck Neck: Yes normal visual inspection Chest Chest palpation & inspection: normal palpation of entire chest wall Resp Effort & Inspection: normal respiratory effort Neuro General: patient oriented x3 Assessment & Plan Assessment & Plan (1) Upper respiratory tract infection: Code(s): J06.9 - Acute upper respiratory infection, unspecified Plan: Antibiotics ordered. Increase fluid intake. Tylenol for aches and pains. If symptoms worsen, follow-up here for a recheck. Prednisone added to the regimen. Coding Level of Care Code Est Pt Level 3 (70528) Diagnoses Upper respiratory tract infection J06.9
== END 2023-03-28 10:49 | disposition home or self-care (01) ==
PROVIDERS: PCP Internal Medicine; Visit Provider Internal Medicine
DX: J06.9 Acute upper respiratory infection, unspecified (principal)
CPT/HCPCS: 99213

== ENCOUNTER 2023-05-21 08:49 | Outpatient (AMB) | payer MEDICARE, SELFPAY ==
[2023-05-21 09:06] VITALS: BP 124/70; PULSE 64; O2SAT 100; BMI 43.9
--- NOTE | 2023-05-21 09:06 | AM.OFFWIN_ITS ---
Intake Vital Signs 3 05/21/23 09:06 Height 5 ft 1 in Weight 232 lb 4 oz BMI 43.9 BP 124/70 Blood Pressure Location Lt brachial Position Sitting Pulse 64 Pulse Source Pulse Oximeter Pulse Oximetry (%) 100 Oxygen Delivery Method Room Air Intake Visit Reasons: EP Lower RT side back pain [id number] Intake Note: Pt is here lower right side back pain pt says last Friday she was making her bed and her back went out and it started to get better but now the pain is getting worse again Patient Tobacco Use Status: Former Tobacco user Quit Date: quit 40 plus years ago Allergies codeine Allergy (Unknown, Verified 05/21/23 09:16) Unknown latex [Latex] Allergy (Unknown, Verified 05/21/23 09:16) BURNING oxycodone [Oxycodone] Allergy (Unknown, Verified 05/21/23 09:16) FAINT/TACHYCARDIA tramadol Adverse Reaction (Intermediate, Verified 05/21/23 09:16) ORELLANA Medication List - Last Reconciled 05/21/23 by Brian Gillespie MD albuterol sulfate 90 mcg/actuation (ProAir HFA) 2 puffs inhalation Q6H PRN alprazolam 0.5 mg PO BEDTIME PRN 30 days dspiuph-pvwcfhxwgiqkb-yenyxogb 250-250-65 mg (Excedrin Migraine) 2 tabs PO Q6H PRN fluticasone furoate-vilanterol 100-25 mcg/dose (Breo Ellipta) 1 ea PO DAILY gabapentin 100 mg PO BEDTIME lisinopril 10 mg PO DAILY 90 days omeprazole 20 mg PO DAILY Do you need a note to return to daycare/school/sports/work: Yes HPI EP Lower RT side back pain [id number] 2 HPI0 Details Patient is 63-year-old female came in today to be evaluated for right- sided lower back pain that started yesterday while she was making bed Patient says that she injured her sacroiliac joint 2018 at work, when she was working in [employer] it and lifting heavy boxes, she went through treatment with physical therapy felt better And then again 2020 she had the similar pain while getting off the beach chair Pain is nonradiating and moderate to severe in intensity There is no bowel or bladder issues There is no fever no chills no abdominal pain no nausea vomiting no diarrhea On examination she is tender over right sacroiliac joint with pressure Patient have GFR of 58, she took some ibuprofen this morning, instructed patient not to take more ibuprofen I have sent cyclobenzaprine 5 mg she may take that up to 3 times a day patient is aware that it will make her tired and dizzy Tylenol 650 up to 3 times a day is okay And Lidoderm patches 5% as needed locally. Follow-up with PCP [facility] Medical History Asthma, persistent controlled Pre-operative clearance Knee pain, right Iron deficiency anemia Thrombophlebitis Hip pain, left COVID-19 virus infection Synovial cyst of popliteal space [Neal], left knee Hiatal hernia Migraine Peripheral vascular disease Hypertension Obesity Vitamin D deficiency Hypercholesterolemia GERD (gastroesophageal reflux disease) Asthma Peripheral neuropathy Surgical History History of esophagogastroduodenoscopy (EGD) Hx of colonoscopy History of vein stripping History of carpal tunnel release History of appendectomy History of section Family History Father Lung cancer Mother Lung cancer Paternal Grandfather Lung cancer Paternal Uncle Lung cancer Sister Pancreatic cancer Social History Household Members: Spouse Housing: House Are you a primary livestock caretaker to a significant other at home: No Do you presently have visiting nurse or other home services: No Alcohol intake: current Alcohol intake frequency: a few times a week Alcohol type: beer and wine Patient Tobacco Use Status: Former Tobacco user Quit Date: quit 40 plus years ago Tobacco use type: Cigarette Years Smoked: quit in the s e-Cigarette/Vaping Use: Never Used Second Hand Smoke Exposure: No service: No Current occupational status: retired Current occupation: rt handed Cognitive needs: No Hearing needs: No Vision needs: Yes (Glasses) Review of Systems Const All systems reviewed & are unremarkable except as noted in HPI and below Physical Exam Vital Signs: Last Vital Signs Pulse 64 05/21/23 09:06 BP 124/70 05/21/23 09:06 Pulse Ox 100 05/21/23 09:06 Oxygen Delivery Method Room Air 05/21/23 09:06 BMI result Body Mass Index 43.9 Const General: no acute distress Orientation/consciousness: patient oriented x3 Eyes General: appearance normal, both eyes and all related structures Resp Effort & Inspection: normal respiratory effort and able to speak in complete sentences Auscultation: clear to auscultation bilaterally Cardio Other: S1 S2 Back/Spine/Pelvis Back/spine/pelvis image: 2 1. Tender to palpation Neuro General: patient oriented x3 Psych Mental Status: mental status grossly normal Results AMB Urinalysis, Automated 2 UA Leukoctes 70 Darell/uL Last Edit by Holly Wylie CMA on 05/21/23 09:27 UA Nitrite Negative Last Edit by Holly Wylie CMA on 05/21/23 09:27 UA Urobilinogen 0.2 mg/dL Last Edit by Holly Wylie CMA on 05/21/23 09 :27 UA Protein 15 mg/dL Last Edit by Holly Wylie CMA on 05/21/23 09:27 UA pH 6.0 Last Edit by Holly Wylie CMA on 05/21/23 09:27 UA Blood 0 Piyush/uL Last Edit by Holyl Wylie CMA on 05/21/23 09:27 UA Specific [place] 1.030 Last Edit by Holly Wylie CMA on 05/21/23 09:27 UA Ketone Positive Last Edit by Holly Wylie CMA on 05/21/23 09:27 UA Bilirubin 1 mg/dL Last Edit by Holly Wylie CMA on 05/21/23 09:27 UA Glucose 0 mg/dL Last Edit by Holly Wylie CMA on 05/21/23 09:27 Results Reviewed Results Reviewed: Laboratory Last Values Urine pH (Auto) 6.0 05/21/23 09:25 Specific [place] (Auto) 1.030 05/21/23 09:25 Urine Protein (Auto) 15 mg/dL 05/21/23 09:25 Glucose (UA)(Auto) 0 mg/dL 05/21/23 09:25 Urine Ketones (Auto) Positive 05/21/23 09:25 Urine Blood (Auto) 0 Piyush/uL 05/21/23 09:25 Urine Nitrite (Auto) Negative 05/21/23 09:25 Urine Bilirubin (Auto) 1 mg/dL 05/21/23 09:25 Urine Urobilinogen (Auto) 0.2 mg/dL 05/21/23 09:25 Leukocyte Esterase (Auto) 70 Darell/uL 05/21/23 09:25 Assessment & Plan Assessment & Plan (1) Sacroiliitis: Code(s): M46.1 - Sacroiliitis, not elsewhere classified (2) Abnormal finding on urinalysis: Code(s): R82.90 - Unspecified abnormal findings in urine Plan Patient is 63-year-old female came in today to be evaluated for right-sided lower back pain that started yesterday while she was making bed Patient says that she injured her sacroiliac joint 2018 at work, when she was working in [employer] it and lifting heavy boxes, she went through treatment with physical therapy felt better And then again 2020 she had the similar pain while getting off the beach chair Pain is nonradiating and moderate to severe in intensity There is no bowel or bladder issues There is no fever no chills no abdominal pain no nausea vomiting no diarrhea On examination she is tender over right sacroiliac joint with pressure Patient have GFR of 58, she took some ibuprofen this morning, instructed patient not to take more ibuprofen I have sent cyclobenzaprine 5 mg she may take that up to 3 times a day patient is aware that it will make her tired and dizzy Tylenol 650 up to 3 times a day is okay And Lidoderm patches 5% as needed locally. Her union shows sign of slight bladder inflammation, patient is asymptomatic we will send urine for culture Follow-up with PCP Orders: Orders 2 Urine Culture Today R82.90 - Unspecified abnormal findings in urine AMB Urinalysis Automated Today Z13.9 - Encounter for screening, unspecified Medications: New 2 cyclobenzaprine 5 mg PO TID PRN 30 tabs 0RF muscle spasm 10 days lidocaine 5% (Lidoderm) leave on most painful area for up to 12 hrs 1 patch topical DAILY 15 ea 0RF Coding Level of Care Code Est Pt Level 4 (12714) Diagnoses Sacroiliitis M46.1 Abnormal finding on urinalysis R82.90
== END 2023-05-21 09:32 | disposition home or self-care (01) ==
PROVIDERS: PCP Internal Medicine; Visit Provider Internal Medicine
DX: M46.1 Sacroiliitis, not elsewhere classified (principal); R82.90 Unspecified abnormal findings in urine
CPT/HCPCS: 81003; 99214

== ENCOUNTER 2023-05-21 12:42 | Outpatient (REF) | payer MEDICARE, SELFPAY | END 2023-05-21 12:43 | disposition home or self-care (01) | LOC: HO.HMGCLNP 12:42 | PROVIDERS: Visit Provider Internal Medicine | DX: R82.90 Unspecified abnormal findings in urine (principal) | CPT/HCPCS: 87086 ==

== ENCOUNTER 2023-07-03 12:15 | Outpatient (AMB) | payer MEDICARE, SELFPAY ==
[2023-07-03 12:30] VITALS: BP 116/70; PULSE 64; O2SAT 97; BMI 43.8
--- NOTE | 2023-07-03 12:30 | A.OFFPC_ITS ---
Vital Signs 07/03/23 12:30 Height 5 ft 1 in Weight 232 lb 0.4 oz BMI 43.8 BP 116/70 Blood Pressure Location Lt brachial Position Sitting Pulse 64 Pulse Source Pulse Oximeter Pulse Oximetry (%) 97 Oxygen Delivery Method Room Air Intake Visit Reasons: Annual Exam Intake Note: Patient is here today for a physical. Inspector Clip On Sunglasses Required: No Allergies codeine Allergy (Unknown, Verified 07/03/23 12:30) Unknown latex [Latex] Allergy (Unknown, Verified 07/03/23 12:30) BURNING oxycodone [Oxycodone] Allergy (Unknown, Verified 07/03/23 12:30) FAINT/TACHYCARDIA tramadol Adverse Reaction (Intermediate, Verified 07/03/23 12:30) ORELLANA Medication List - Last Reconciled 07/03/23 by Vern Saul MD albuterol sulfate 90 mcg/actuation (ProAir HFA) 2 puffs inhalation Q6H PRN alprazolam 0.5 mg PO BEDTIME PRN 30 days npiqbep-idseywiwzpjxc-unpatadj 250-250-65 mg (Excedrin Migraine) 2 tabs PO Q6H PRN cyanocobalamin (vitamin B-12) 1,000 mcg PO DAILY fluticasone furoate-vilanterol 100-25 mcg/dose (Breo Ellipta) 1 ea PO DAILY gabapentin 200 mg PO BEDTIME PRN lisinopril 10 mg PO DAILY 90 days omeprazole 20 mg PO DAILY Tobacco use date assessed: 07/03/23 Fall risk assessment: No Falls in past year Last assessed Fall Risk: 07/03/23 Dental Screening Dental Screen Date: 07/03/23 Did you have a dental visit in the last 12 months?: Yes Did you have a dental problem in the last 6 months where you did not have access to dental care?: No Was dental information given to patient?: Patient has dentist HPI Annual Exam HPI Details 63-year-old morbidly obese female with G ERD asthma hypercholesterolemia hypertension generalized anxiety disorder last seen in September 2022. Patient is here for physical exam. Mammograms up-to-date August 2022 colonoscopy last done in February 2021 bone density 2020. Urgent care visit May for right sided back pain diagnosis of sacroiliitis. March urgent care visit for bronchitis occ dizzy, had N recently 24 hours naps and sleepy tirede, watch tv sleepy no sleepy. snores a lot. [facility] Medical History Asthma, persistent controlled Pre-operative clearance Knee pain, right Iron deficiency anemia Thrombophlebitis Hip pain, left COVID-19 virus infection Synovial cyst of popliteal space [Neal], left knee Hiatal hernia Migraine Peripheral vascular disease Hypertension Obesity Vitamin D deficiency Hypercholesterolemia GERD (gastroesophageal reflux disease) Asthma Peripheral neuropathy Surgical History History of esophagogastroduodenoscopy (EGD) Hx of colonoscopy History of vein stripping History of carpal tunnel release History of appendectomy History of section Family History Father Lung cancer Mother Lung cancer Paternal Grandfather Lung cancer Paternal Uncle Lung cancer Sister Pancreatic cancer Social History (Updated 07/03/23 @ 12:59 by Vern Saul MD) Household Members: Spouse Housing: House Are you a primary primary care provider to a significant other at home: No Do you presently have visiting nurse or other home services: No Alcohol intake: current Alcohol intake frequency: a few times a week Alcohol type: beer and wine Comment: 2 days week 2 drinks Patient Tobacco Use Status: Former Tobacco user Quit Date: quit 40 plus years ago Tobacco use type: Cigarette Years Smoked: quit in the 's e-Cigarette/Vaping Use: Never Used Second Hand Smoke Exposure: No service: No Current occupational status: retired Current occupation: rt handed Cognitive needs: No Hearing needs: No Vision needs: Yes (Glasses) Questionnaire PHQ-9 Over the last 2 weeks, how often have you been bothered by any of the following problems? 1. Little interest or pleasure in doing things: not at all 2. Feeling down, depressed, or hopeless: not at all 3. Trouble falling or staying asleep, or sleeping too much: not at all 4. Feeling tired or having little energy: not at all 5. Poor appetite or overeating: not at all 6. Feeling bad about yourself - or that you are a failure or have let yourself or your family down: not at all 7. Trouble concentrating on things, such as reading the newspaper or watching television: not at all 8. Moving or speaking so slowly that other people could have noticed. Or the opposite - being so fidgety or restless that you have been moving around a lot more than usual: not at all 9. Thoughts that you would be better off or of hurting yourself in some way: not at all Total score: 0 Depression Screening Interpretation: Positive Depression Screening Follow-up: Existing condition and In treatment Depression Screening Done: Yes Source: Developed by Drs. Rolando Dominguez, Terri Ca, Kwame Gonzalez and colleagues, with an educational stacy from [employer]. Thrive Questionnaire Date Thrive assessed: 07/03/23 I am a: Patient What is your living situation today?: I have a steady place to live Within the past 12 months, did the food you bought not last and you didn't have the money to get more?: Never true Within the past 12 months, did you worry whether your food would run out before you got money to buy more?: Never true Do you have trouble paying for medicines?: No Do you have trouble getting transportation to medical appointments?: No Do you have trouble paying your heating and electricity bill?: No Do you have trouble taking care of your child, family member or friend?: No Do you have trouble with day-to-day activities such as bathing, preparing meals, shopping, managing finances, etc.?: No Are you currently unemployed and looking for a job?: No Are you interested in more education?: No Please select the resources that you would like help with: None THRIVE Score: 0 AUDIT C Alcohol Use Questionnaire (AUDIT-C) 1. How often do you have a drink containing alcohol?: Monthly or less 2. How many drinks containing alcohol do you have on a typical day when you are drinking?: 1 or 2 3. How often do you have six or more drinks on one occasion?: Never Total Score: 1 BJORN-7 AMB Questionnaire BJORN-7 Date BJORN - 7 assessed: 07/03/23 Feeling nervous, anxious, or on edge: 0 = Not at all Not being able to stop or control worryin = Not at all Worrying too much about different things: 0 = Not at all Trouble relaxin = Not at all Being so restless that it is hard to sit still: 0 = Not at all Becoming easily annoyed or irritable: 0 = Not at all Feeling afraid as if something awful might happen: 0 = Not at all Total BJORN-7 score (0-4 normal; 5-9 mild; 10-14 moderate; 15-21 severe): 0 Source: Developed by Drs. Rolando Dominguez, Terri Ca, Kwame Gonzalez and colleagues, with an educational stacy from [employer]. Review of Systems Const Reports as per HPI and Denies weakness Eyes Denies no additional complaints ENT Reports Normal hearing present, Denies dizziness, Denies nasal congestion, Denies tinnitus and Denies sore throat Card Denies chest pain, Denies syncope, Denies rapid heart rate and Denies dyspnea Resp Denies cough and Denies dyspnea GI Denies change in stool character, Reports constipation, Denies diarrhea, Denies nausea and Denies vomiting Denies urinary frequency, Denies difficulty voiding and Denies dysuria Neuro Reports Normal hearing present, Denies confusion, Denies dizziness, Denies syncope and Denies weakness Psych Denies confusion Physical exam (Primary Care) Vital Signs: Last Vital Signs Pulse 64 07/03/23 12:30 BP 116/70 07/03/23 12:30 Pulse Ox 97 07/03/23 12:30 Oxygen Delivery Method Room Air 07/03/23 12:30 BMI result Body Mass Index 43.8 Tobacco/Smoking Status: Tobacco use Status Tobacco use date assessed 07/03/23 07/03/23 12:41 Patient Tobacco Use Status Former Tobacco user 07/03/23 12:59 Tobacco use type Cigarette 07/03/23 12:59 e-Cigarette/Vaping Use Never Used 07/03/23 12:59 PHQ-9: PHQ-9 Score PHQ-9: Total score 0 07/03/23 12:52 Depression Screening Interpretation: Positive Depression Screening Follow-up: Existing condition and In treatment Thrive Assessment: Date of Thrive Assessment Date Thrive assessed 07/03/23 07/03/23 12:41 Const Other: 5 mm skin tag on the lower back General: No confusion Orientation/consciousness: No confusion HENMT Head: Yes normocephalic Ears: external ears normal and TM's normal bilaterally Face and sinus: Yes normal facial exam Mouth: moist mucous membranes Throat: Yes tonsils normal Eyes Conjunctivae: conjunctivae normal Pupils: Equal, round and reactive pupils present and Pupil accommodation reflex normal Direct Ophthalmoscopy: normal light reflex Neck Neck: No lymphadenopathy Thyroid: Thyroid normal Chest Chest palpation & inspection: normal inspection of the chest Resp Effort & Inspection: normal respiratory effort and no audible wheezes Auscultation: clear to auscultation bilaterally, no crackles, no wheezes and lung sounds not diminished Cardio Rate: regular rate Rhythm: regular rhythm Peripheral pulses: radial pulses present and dorsalis pedis present GI Palpation (GI): no masses Auscultation: normal bowel sounds and normoactive bowel sounds Rectal Exam - Female: deferred Skin General skin exam: no rashes or lesions noted Rashes: no rashes Neuro General: No confusion Cranial nerves: Yes Equal, round and reactive pupils present and Yes Normal hearing present Cognition (Neuro): normal cognition Gait exam (Neuro): Normal gait present Motor exam (neuro): 5/5 motor strength present throughout Deep tendon reflexes (DTR's): Right brachioradialis reflex intensity grade: 2+, Left brachioradialis reflex intensity grade: 2+, Right patellar reflex intensity grade: 2+ and Left patellar reflex intensity grade: 2+ Extrem General: No edema Immunizations pneumoc 20-mariajose conj-dip cr(PF) 0.5 mL IM syringe Performing Provider: Vern Saul MD [facility] Administered by: BENJAMIN Azevedo on 07/03/23 13:22 Dose Route Admin Location Dispensed Lot Number Expiration Date NDC Senior Software Project Manager 0.5 mL IM Left Deltoid 0.5 mL [id number] 07/03/24 [employer] VIS Given Date VIS Provided VIS Publication Date 07/03/23 Single Vaccine 21 Eligibility Eligibility Date Funding Source Not [facility] Eligible 07/03/23 Private Assessment and Plan Assessment & Plan (1) Annual physical exam: Code(s): Z00.00 - Encounter for general adult medical examination without abnormal findings (2) Asthma: Code(s): J45.909 - Unspecified asthma, uncomplicated Qualifiers: Asthma severity: mild Asthma persistence: intermittent Asthma complication type: uncomplicated Qualified Code(s): J45.20 - Mild intermittent asthma, uncomplicated Plan: Continue with the inhaler as needed has Breo and remember to rinse mouth after using (3) GERD (gastroesophageal reflux disease): Code(s): K21.9 - Gastro-esophageal reflux disease without esophagitis Qualifiers: Esophagitis presence: without esophagitis Qualified Code(s): K21.9 - Gastro-esophageal reflux disease without esophagitis Plan: Avoid the foods that causes that usually spicy foods, tomato products, juices, coffee, soda and foods that your sensitive to. After eating do not lie down, allow 3-4 hours before in lie down. And keep the head of bed above 30 degrees to avoid the acid from going up. On omeprazole 20 mg once a day (4) Hypercholesterolemia: Code(s): E78.00 - Pure hypercholesterolemia, unspecified Plan: Avoid fried foods, chicken skin, eggs, butter margarine, pastries and meat. Be it pork or beef they have a lot of cholesterol LDL goal of less than 130 and triglyceride of less than 150 (5) Obesity: Code(s): E66.9 - Obesity, unspecified Qualifiers: Obesity type: due to excess calories Obesity classification: adult class 3 (BMI >= 40) Serious obesity comorbidity presence: with serious comorbidity Body mass index: BMI 40.0-44.9 Qualified Code(s): E66.01 - Morbid (severe) obesity due to excess calories; Z68.41 - Body mass index [BMI]40.0- 44.9, adult Plan: Diet and exercise (6) Hypertension: Code(s): I10 - Essential (primary) hypertension Qualifiers: Hypertension type: essential hypertension Qualified Code(s): I10 - Essential (primary) hypertension Plan: Continue with blood pressure medication. Decrease salt intake and exercise presently on lisinopril 10 mg once a day (7) Generalized anxiety disorder: Code(s): F41.1 - Generalized anxiety disorder Plan: Continue with present medication (8) Hypersomnia: Code(s): G47.10 - Hypersomnia, unspecified (9) Skin tag: Code(s): L91.8 - Other hypertrophic disorders of the skin Orders: Orders Complete Blood Count Auto Diff Today Z00.00 - Encounter for general adult medical examination without abnormal findings Comprehensive Met. Panel Today Z00.00 - Encounter for general adult medical examination without abnormal findings Thyroid Stimulating Hormone Today Z00.00 - Encounter for general adult medical examination without abnormal findings Vitamin B12 and Folate Today Z00.00 - Encounter for general adult medical examination without abnormal findings RT home sleep study Today G47.10 - Hypersomnia, unspecified Hemoglobin A1c Today E66.01 - Morbid (severe) obesity due to excess calories, Z68.41 - Body mass index [BMI] 40.0-44.9, adult Free T4 (Free Thyroxine) Today Z00.00 - Encounter for general adult medical examination without abnormal findings Lipid Panel Today E78.00 - Pure hypercholesterolemia, unspecified, Z00.00 - Encounter for general adult medical examination without abnormal findings Vitamin D 25-OH Total Today Z00.00 - Encounter for general adult medical examination without abnormal findings Referrals Dermatology Referral L91.8 - Other hypertrophic disorders of the skin Medications: New tirzepatide (weight loss) (Zepbound) 2.5 mg (0.5 mL) subcut QWEEK 4 weeks 2 mL 0RF E66.01 - Morbid (severe) obesity due to excess calories, Z68.41 - Body mass index [BMI] 40.0-44.9, adult Refilled alprazolam 0.5 mg PO BEDTIME 30 days PRN 30 tabs 1RF Anxiety F41.1 - Generalized anxiety disorder Coding Level of Care Code Est Pt Prev Care >65y(27588) Diagnoses Annual physical exam Z00.00 Mild intermittent asthma without complication J45.20 Asthma severity: mild Asthma persistence: intermittent Asthma complication type: uncomplicated Gastroesophageal reflux disease without esophagitis K21.9 Esophagitis presence: without esophagitis Hypercholesterolemia E78.00 Class 3 severe obesity due to excess calories with serious comorbidity and body mass index (BMI) of 40.0 to 44.9 in adult E66.01; Z68.41 Obesity type: due to excess calories Obesity classification: adult class 3 (BMI >= 40) Serious obesity comorbidity presence: with serious comorbidity Body mass index: BMI 40.0-44.9 Essential hypertension I10 Hypertension type: essential hypertension Generalized anxiety disorder F41.1 Hypersomnia G47.10 Skin tag L91.8
== END 2023-07-03 13:31 | disposition home or self-care (01) ==
PROVIDERS: Visit Provider Internal Medicine
DX: J45.20 Mild intermittent asthma, uncomplicated (principal); E66.01 Morbid (severe) obesity due to excess calories; Z68.41 Body mass index [BMI] 40.0-44.9, adult; Z23 Encounter for immunization; E78.00 Pure hypercholesterolemia, unspecified; K21.9 Gastro-esophageal reflux disease without esophagitis; I10 Essential (primary) hypertension; F41.1 Generalized anxiety disorder; G47.10 Hypersomnia, unspecified; L91.8 Other hypertrophic disorders of the skin
CPT/HCPCS: 90471; 90677; 99214

== ENCOUNTER 2023-08-01 08:38 | Outpatient (REF) | payer MEDICARE, SELFPAY ==
[2023-08-01 10:26] LABS: MANUAL DIFF FLAG NO
[2023-08-01 10:58] LABS: Basophils Absolute Auto 0.1 X10*3/uL (0.0-0.2); Basophils Percent Auto 0.9 % (0-2); Eosinophils Absolute Auto 0.2 X10*3/uL (0.0-0.4); Eosinophils Percent Auto 2.8 % (0-4); Hematocrit 37.2 % (37.0-47.0); Imm Gran Abs Auto 0.01 X10*3/uL (0.00-0.03); Imm Gran Pct Auto 0.2 % (0.0-0.4); Lymphocytes Absolute Auto 1.8 X10*3/uL (1.2-4.9); Mean Corpuscular HGB Conc 32.3 g/dl (31.0-35.0); Mean Corpuscular Hemoglobin 28.6 pg (27.0-33.0); Mean Corpuscular Volume 88.8 fL (80.0-98.0); Mean Platelet Volume 10.6 fL (9.4-12.3); Monocytes Absolute Auto 0.4 X10*3/uL (0.1-1.2); Monocytes Percent Auto 6.7 % (2-11); Neutrophils Percent Auto 55.4 % (45-73); Platelet Count 297 X10*3/uL (160-400); Red Blood Count 4.19 X10*6/uL (4.20-5.50); Red Cell Distribution Width 14.5 % (11.0-16.0); White Blood Count 5.4 X10*3/uL (4.8-10.8)
[2023-08-01 11:17] LABS: Estimated Average Glucose 120 mg/dL; Hemoglobin A1c % 5.8 % (<6.0)
[2023-08-01 11:19] LABS: Alanine Aminotransferase 22 U/L (0-31); Albumin Level 3.8 g/dL (3.5-5.0); Alkaline Phosphatase 57 U/L (39-117); Anion Gap 11 (12-20); Aspartate Amino Transferase 24 U/L (5-31); Bilirubin Total 0.3 mg/dL (0.0-1.0); Blood Urea Nitrogen 21 mg/dL (9-16); Calcium 9.2 mg/dL (8.4-10.2); Carbon Dioxide 27 mmol/L (22-29); Chloride 107 mmol/L (96-108); Cholesterol 203 mg/dL (<200); Estimated Glomerular Filt Rate 58; Glucose Random 103 mg/dL (60-115); HDL Cholesterol 72 mg/dL (>40); LDL Cholesterol Calculated 120 mg/dL (<100); Potassium 4.6 mmol/L (3.3-5.1); Sodium 140 mmol/L (135-145); Thyroid Stimulating Hormone 1.62 uIU/mL (0.32-4.0); Total Protein 7.3 g/dL (6.5-8.0); Triglycerides 59 mg/dL (<150); Vitamin D 25-OH Total 39.6 ng/mL (>30)
[2023-08-01 11:31] LABS: Folate 14.6 ng/mL (> or = 4.0); Vitamin B12 1476 pg/mL (200-900)
== END 2023-08-01 08:39 | disposition home or self-care (01) ==
LOC: HO.HMGCLDS 08:38
PROVIDERS: PCP Internal Medicine; Visit Provider Internal Medicine
DX: Z00.00 Encounter for general adult medical examination without abnormal findings (principal); E66.01 Morbid (severe) obesity due to excess calories; Z68.41 Body mass index [BMI] 40.0-44.9, adult; E78.00 Pure hypercholesterolemia, unspecified
CPT/HCPCS: 36415; 80053; 80061; 82306; 82607; 82746; 83036; 84439; 84443; 85025

== ENCOUNTER 2023-08-22 09:25 | Outpatient (REF) | payer MEDICARE, SELFPAY ==
--- NOTE | ~2023-08-22 | MM_ITS ---
EXAMINATION: MM SCREENING DIGITAL BREAST TOMOSYNTHESIS, BILATERAL CLINICAL INFORMATION: Screening. Asymptomatic. COMPARISON: Mammography: This study is compared with prior exams dating back to 2018. TECHNIQUE: Digital breast tomosynthesis is performed in both the craniocaudal and mediolateral oblique views along with computer-aided detection (CAD). Synthesized 2D images are generated from the tomosynthesis. FINDINGS: The breasts are almost entirely fatty (ACR BI-RADS breast composition Category a). There are no significant masses, abnormal calcifications, or other abnormalities. There is a tissue marker present in the left breast from prior benign percutaneous biopsy. MM/MM tomosynthesis screening BI IMPRESSION: No mammographic evidence of malignancy. ASSESSMENT: BI-RADS BI-RADS 2 - Benign Findings RECOMMENDATION: Routine annual mammography screening. 1 year F/U This examination should not preclude the clinical evaluation of a suspicious palpable abnormality. This patient's information was entered into a reminder system with a target due date for their next mammogram.
== END 2023-08-22 09:26 | disposition home or self-care (01) ==
LOC: HO.MAMMO 09:25
PROVIDERS: PCP Internal Medicine; Visit Provider Internal Medicine
DX: Z12.31 Encounter for screening mammogram for malignant neoplasm of breast (principal)
CPT/HCPCS: 77063; 77067

== ENCOUNTER → 2023-08-22 09:30 | Outpatient (BNV) | payer MEDICARE, SELFPAY | PROVIDERS: PCP Internal Medicine; Visit Provider Radiology Diagnostic Radiology | DX: Z12.31 Encounter for screening mammogram for malignant neoplasm of breast (principal) | CPT/HCPCS: 77063; 77067 ==

== ENCOUNTER 2023-10-13 09:33 | Outpatient (AMB) | payer MEDICARE, SELFPAY ==
[2023-10-13 09:34] VITALS: BP 136/62; PULSE 70; O2SAT 98; BMI 43.1
--- NOTE | 2023-10-13 09:34 | A.OFFPC_ITS ---
Vital Signs 10/13/23 09:34 Height 5 ft 1 in Weight 228 lb BMI 43.1 BP 136/62 Blood Pressure Location Lt brachial Position Sitting Pulse 70 Pulse Source Pulse Oximeter Pulse Oximetry (%) 98 Oxygen Delivery Method Room Air Intake Visit Reasons: Frequency Lens Coater Required: No Allergies codeine Allergy (Unknown, Verified 10/13/23 09:35) Unknown latex [Latex] Allergy (Unknown, Verified 10/13/23 09:35) BURNING oxycodone [Oxycodone] Allergy (Unknown, Verified 10/13/23 09:35) FAINT/TACHYCARDIA tramadol Adverse Reaction (Intermediate, Verified 10/13/23 09:35) ORELLANA Tobacco use date assessed: 10/13/23 Fall risk assessment: No Falls in past year Last assessed Fall Risk: 10/13/23 Dental Screening Dental Screen Date: 07/03/23 HPI Frequency HPI0 Details 63 year old obese female with history of asthma, GERD, hypertension, hypercholesterolemia, Vitamin D deficiency, and hypersomnia last seen June 06 for annual exam coming in for follow up. Patient completed mammogram August 2023, BI-RADS 2. She walks most days but has been unable to walk due to left sided hip pain and right knee problem. Patient takes tylenol for the hip pain. She had been having ongoing knee pain for several years and has been to orthopedics and given cortisone shot and PT in the past.?Hip pain has been bothersome for the past 15 years but has been worsening. Denies any recent falls or trauma. Pain is worse with activity and localized over lateral aspect of hip. Patient had appointment for sleep study but did not make it due to transportation issues. Nocturnal urinary frequency without incontinence, often drinks water before bed time. Lump and swelling on left side of neck which has been present for about 2 months without any growth or pain. Lump is mobile.?Denies dysphagia, cough, sore throat. FOR[facility], [facility] Medical History Asthma, persistent controlled Pre-operative clearance Knee pain, right Iron deficiency anemia Thrombophlebitis Hip pain, left COVID-19 virus infection Synovial cyst of popliteal space [Neal], left knee Hiatal hernia Migraine Peripheral vascular disease Hypertension Obesity Vitamin D deficiency Hypercholesterolemia GERD (gastroesophageal reflux disease) Asthma Peripheral neuropathy Surgical History History of esophagogastroduodenoscopy (EGD) Hx of colonoscopy History of vein stripping History of carpal tunnel release History of appendectomy History of section Family History Father Lung cancer Mother Lung cancer Paternal Grandfather Lung cancer Paternal Uncle Lung cancer Sister Pancreatic cancer Social History (Updated 07/03/23 @ 12:59 by Vern Saul MD) Household Members: Spouse Housing: House Are you a primary career development engineer to a significant other at home: No Do you presently have visiting nurse or other home services: No Alcohol intake: current Alcohol intake frequency: a few times a week Alcohol type: beer and wine Comment: 2 days week 2 drinks Patient Tobacco Use Status: Former Tobacco user Tobacco use type: Cigarette Years Smoked: quit in the 's e-Cigarette/Vaping Use: Never Used Second Hand Smoke Exposure: No service: No Current occupational status: retired Current occupation: rt handed Cognitive needs: No Hearing needs: No Vision needs: Yes (Glasses) Questionnaire PHQ-9 Over the last 2 weeks, how often have you been bothered by any of the following problems? 1. Little interest or pleasure in doing things: not at all 2. Feeling down, depressed, or hopeless: not at all 3. Trouble falling or staying asleep, or sleeping too much: not at all 4. Feeling tired or having little energy: not at all 5. Poor appetite or overeating: not at all 6. Feeling bad about yourself - or that you are a failure or have let yourself or your family down: not at all 7. Trouble concentrating on things, such as reading the newspaper or watching television: not at all 8. Moving or speaking so slowly that other people could have noticed. Or the opposite - being so fidgety or restless that you have been moving around a lot more than usual: not at all 9. Thoughts that you would be better off or of hurting yourself in some way: not at all Total score: 0 Depression Screening Interpretation: Positive Depression Screening Follow-up: Existing condition and In treatment Depression Screening Done: Yes Source: Developed by Drs. Rolando Dominguez, Terri B.WKwame Ruffin and colleagues, with an educational stacy from [employer]. Thrive Questionnaire Date Thrive assessed: 07/03/23 I am a: Patient What is your living situation today?: I have a steady place to live Within the past 12 months, did the food you bought not last and you didn't have the money to get more?: Never true Within the past 12 months, did you worry whether your food would run out before you got money to buy more?: Never true Do you have trouble paying for medicines?: No Do you have trouble getting transportation to medical appointments?: No Do you have trouble paying your heating and electricity bill?: No Do you have trouble taking care of your child, family member or friend?: No Do you have trouble with day-to-day activities such as bathing, preparing meals, shopping, managing finances, etc.?: No Are you currently unemployed and looking for a job?: No Are you interested in more education?: No Please select the resources that you would like help with: None THRIVE Score: 0 AUDIT C Alcohol Use Questionnaire (AUDIT-C) 1. How often do you have a drink containing alcohol?: Monthly or less 2. How many drinks containing alcohol do you have on a typical day when you are drinking?: 1 or 2 3. How often do you have six or more drinks on one occasion?: Never Total Score: 1 BJORN-7 AMB Questionnaire BJORN-7 Date BJORN - 7 assessed: 07/03/23 Source: Developed by Drs. Rolando Dominguez, Kwame Wilder and colleagues, with an educational stacy from [employer]. Review of Systems Const Reports daytime sleepiness, Denies frequent falls and Reports snoring Eyes Reports no additional complaints ENT Reports dry mouth, Reports neck mass (small mobile masses on left side of neck ) and Denies post nasal drip Card Reports no additional complaints, Denies dyspnea and Denies dyspnea on exertion Resp Denies cough, Denies dyspnea, Denies dyspnea on exertion and Reports snoring GI Reports no additional complaints Denies hematuria, Denies urinary frequency, Denies difficulty voiding, Reports nocturia, Denies dyspareunia, Denies dysuria, Denies urinary urgency and Denies vaginal dryness (treated by OBGYN ) Musc Reports arthralgias (Right knee and left hip pain ) Neuro Reports no additional complaints and Denies frequent falls Psych Reports no additional complaints Endo Reports no additional complaints Delta/Lymph Reports no additional complaints Aller/Immun Reports no additional complaints Physical exam (Primary Care) Vital Signs: Last Vital Signs Pulse 70 10/13/23 09:34 BP 136/62 10/13/23 09:34 Pulse Ox 98 10/13/23 09:34 Oxygen Delivery Method Room Air 10/13/23 09:34 BMI result Body Mass Index 43.1 BMI Assessment/Plan discussion: High BMI High, discussed plan: lifestyle, dietary and physical activity Tobacco/Smoking Status: Tobacco use Status Tobacco use date assessed 10/13/23 10/13/23 09:39 Patient Tobacco Use Status Former Tobacco user 10/13/23 09:39 Tobacco use type Cigarette 10/13/23 09:39 e-Cigarette/Vaping Use Never Used 10/13/23 09:39 PHQ-9: PHQ-9 Score PHQ-9: Total score 0 10/13/23 14:32 Depression Screening Interpretation: Positive Depression Screening Follow-up: Existing condition and In treatment Thrive Assessment: Date of Thrive Assessment Date Thrive assessed 07/03/23 10/13/23 09:39 Const General: cooperative, healthy appearing, comfortable and no acute distress Nutritional Appearance: obese Orientation/consciousness: patient oriented x3 Limitations: no limitations HENMT Head: Yes normal to inspection Ears: hearing grossly normal bilaterally General nose exam: Normal external nose present Face and sinus: Yes normal facial exam Teeth and gingiva: dentition normal Eyes General: appearance normal, both eyes and all related structures Eyelids: Yes eyelids normal Conjunctivae: conjunctivae normal Neck Other: Left subclavian area of neck, one deep, mobile, palpable lump appreciated with surrounding swelling. No redness, tenderness or warmth. Neck: Yes full ROM and Yes anterior neck swelling Thyroid: Thyroid normal Chest Chest palpation & inspection: normal inspection of the chest Resp Effort & Inspection: normal respiratory effort and able to speak in complete sentences GI Rectal Exam - Female: deferred Back/Spine/Pelvis Cervical Spine: normal cervical lordosis and cervical ROM normal Skin General skin exam: no rashes or lesions noted Neuro General: patient oriented x3 Extrem General: Yes normal to inspection and Yes full ROM Right upper extremity: normal to inspection Left upper extremity: normal to inspection Right lower extremity: normal to inspection Left lower extremity: normal to inspection and hip/thigh Details: tenderness Location: of the hip Location: laterally and normal ROM Psych Appearance: grossly normal Mental Status: mental status grossly normal Speech and movement: Normal speech and movement present and Clear speech present Affect: normal affect Attitude: cooperative Thought process: Normal thought process present Thought content: Normal thought content present Insight: Good insight present (Psych) Judgement: Good judgement present (Psych) Results Reviewed Results Reviewed: Reviewed blood work from July 2023. Assessment and Plan Assessment & Plan (1) Trochanteric bursitis of left hip: Code(s): M70.62 - Trochanteric bursitis, left hip Plan: XR ordered. Given Meloxicam and advised to take PRN and with food. (2) Palpable mass of neck: Code(s): R22.1 - Localized swelling, mass and lump, neck Plan: Ultrasound and chest XR ordered. (3) Hypersomnia: Code(s): G47.10 - Hypersomnia, unspecified Plan: Patient was unable to make it to last sleep study appointment, due to transportation reasons, but will follow up at a later date to complete the take home sleep study. Advised patient to stop drinking water 1-2 hours prior to bed time to prevent night time awakenings. (4) Osteoarthritis of right knee: Code(s): M17.11 - Unilateral primary osteoarthritis, right knee Plan: Previously seen by orthopedics and given cortisone shot with PT which she found helpful. Will repeat right knee XR and follow up with orthopedics if needed. (5) Hypertension: Code(s): I10 - Essential (primary) hypertension Qualifiers: Hypertension type: essential hypertension Qualified Code(s): I10 - Essential (primary) hypertension Plan: Blood pressure at goal, continue on Lisinopril. Avoid salt intake, encouraged healthy diet and regular exercise. (6) Hypercholesterolemia: Code(s): E78.00 - Pure hypercholesterolemia, unspecified Plan: LDL mildly elevated today at 120. Advised to limit egg yolks to 2 per week and limit other foods high in cholesterol such as chicken skin, fried foods, red meats, and baked goods. (7) GERD (gastroesophageal reflux disease): Code(s): K21.9 - Gastro-esophageal reflux disease without esophagitis Qualifiers: Esophagitis presence: without esophagitis Qualified Code(s): K21.9 - Gastro-esophageal reflux disease without esophagitis Plan: Continue on Omeprazole. Avoid eating 4 hours prior to bedtime or lying down and elevate the head of the bed with 2-3 pillows to prevent acid from going up into esophagus. Avoid trigger foods such as tomato products, soda, caffeine and spicy foods. (8) Asthma: Code(s): J45.909 - Unspecified asthma, uncomplicated Qualifiers: Asthma complication type: uncomplicated Asthma persistence: intermittent Asthma severity: mild Qualified Code(s): J45.20 - Mild intermittent asthma, uncomplicated Plan: Asthma under control, rarely using resuce inhaler and usingBreo daily. Avoid triggers such as allergens. Orders: Orders XR hip LT min 2V 10/13/23 Lorenver O Po, M70.62 - Trochanteric bursitis, left hip XR knee RT 2V 10/13/23 Thelma Callahan PA-C M17.11 - Unilateral primary osteoarthritis, right knee US soft tiss head and/or neck 10/13/23 Lorenver O Po, R22.1 - Localized swelling, mass and lump, neck XR chest 2V 10/13/23 Lorenver O Po, R22.1 - Localized swelling, mass and lump, neck Medications: New meloxicam 15 mg PO DAILY 30 tabs 0RF Lorenver O PoMD Discontinued tirzepatide (weight loss) (Zepbound) Discontinued Reason: Doctor's Order 2.5 mg (0.5 mL) subcut QWEEK 4 weeks 2 mL 0RF E66.01 - Morbid (severe) obesity due to excess calories, Z68.41 - Body mass index [BMI] 40.0-44.9, adult Coding Level of Care Code Est Pt Level 4 (51823) Complex EM visit Add On G2211 Diagnoses Trochanteric bursitis of left hip M70.62 Palpable mass of neck R22.1 Hypersomnia G47.10 Osteoarthritis of right knee M17.11 Essential hypertension I10 Hypertension type: essential hypertension Hypercholesterolemia E78.00 Gastroesophageal reflux disease without esophagitis K21.9 Esophagitis presence: without esophagitis Mild intermittent asthma without complication J45.20 Asthma complication type: uncomplicated Asthma persistence: intermittent Asthma severity: mild
== END 2023-10-13 10:17 | disposition home or self-care (01) ==
PROVIDERS: PCP Internal Medicine; Visit Provider Internal Medicine
DX: M70.62 Trochanteric bursitis, left hip (principal); R22.1 Localized swelling, mass and lump, neck; G47.10 Hypersomnia, unspecified; M17.11 Unilateral primary osteoarthritis, right knee; I10 Essential (primary) hypertension; E78.00 Pure hypercholesterolemia, unspecified; K21.9 Gastro-esophageal reflux disease without esophagitis; J45.20 Mild intermittent asthma, uncomplicated
CPT/HCPCS: 99214; G2211

== ENCOUNTER 2023-10-13 10:27 | Outpatient (REF) | payer MEDICARE, SELFPAY ==
--- NOTE | ~2023-10-13 | XR_ITS ---
EXAMINATION: XR CHEST XR LEFT HIP CLINICAL INFORMATION: Swelling, mass and lump in neck COMPARISON: None available. TECHNIQUE: 2 views of the chest. 2 views of the left hip. FINDINGS: CHEST: There is no gross pneumothorax. Heart size is normal. Mild degenerative changes in the thoracic spine. No pleural effusion. No focal consolidation to suggest pneumonia. LEFT HIP: Degenerative changes on limited views of the inferior aspect of the left sacroiliac joint. Left hip alignment preserved. Faint calcification in the soft tissues adjacent to the greater trochanter. Mild degenerative changes in the left hip joint with joint space narrowing and hypertrophic change. XR/XR chest 2V IMPRESSION: 1. No evidence of pneumonia. 2. Mild degenerative changes in the left hip joint. [id number] degenerative changes first tarsometatarsal joint with joint space narrowing and hypertrophic change.
--- NOTE | ~2023-10-13 | XR_ITS ---
EXAMINATION: XR CHEST XR LEFT HIP CLINICAL INFORMATION: Swelling, mass and lump in neck COMPARISON: None available. TECHNIQUE: 2 views of the chest. 2 views of the left hip. FINDINGS: CHEST: There is no gross pneumothorax. Heart size is normal. Mild degenerative changes in the thoracic spine. No pleural effusion. No focal consolidation to suggest pneumonia. LEFT HIP: Degenerative changes on limited views of the inferior aspect of the left sacroiliac joint. Left hip alignment preserved. Faint calcification in the soft tissues adjacent to the greater trochanter. Mild degenerative changes in the left hip joint with joint space narrowing and hypertrophic change. XR/XR hip LT min 2V IMPRESSION: 1. No evidence of pneumonia. 2. Mild degenerative changes in the left hip joint. [id number] degenerative changes first tarsometatarsal joint with joint space narrowing and hypertrophic change.
== END 2023-10-13 10:28 | disposition home or self-care (01) ==
LOC: HO.XRAY 10:27
PROVIDERS: PCP Internal Medicine; Visit Provider Internal Medicine
DX: M70.62 Trochanteric bursitis, left hip (principal); R22.1 Localized swelling, mass and lump, neck
CPT/HCPCS: 71046; 73502

== ENCOUNTER 2023-10-23 15:15 | Outpatient (REF) | payer MEDICARE, SELFPAY ==
--- NOTE | ~2023-10-23 | US_ITS ---
EXAMINATION: US SOFT TISSUE NECK CLINICAL INFORMATION: Mobile palpable lump with surrounding swelling present for 2 months in left subclavian area of neck with no redness, tenderness or warmth. COMPARISON: None available. TECHNIQUE: Ultrasound of the neck soft tissues is performed with high- frequency leung-scale imaging and color Doppler. FINDINGS: Targeted ultrasound images were obtained by the resin maker of the area of concern as indicated by the patient in the left lower lateral neck/supraclavicular and inner shoulder region. Per resin maker statement, the area of swelling/lump was more obvious when patient was scanned in the upright position and therefore patient scanned in upright position. Several small lymph nodes were visualized with examples as follows: 0.9 x 0.7 x 0.4 cm lateral left neck/supraclavicular node appears abnormal with abnormal cortical thickening. 0.8 x 0.5 x 0.7 cm, 1.0 x 0.5 x 0.6 cm and 0.7 x 0.4 x 0.6 cm lymph nodes demonstrate borderline cortical thickening with echogenic alden. Radiologist was not in attendance. Images were later provided for interpretation. US/US soft tiss head and/or neck IMPRESSION: Several small lymph nodes were visualized in the area of concern as indicated by the patient in the left lower lateral neck/supraclavicular and inner shoulder region. 0.9 x 0.7 x 0.4 cm lateral left neck/supraclavicular node appears abnormal with abnormal cortical thickening. Additional borderline nodes measure 1.0 cm or less as detailed above. Correlation with clinical exam recommended to determine further management including treatment, follow-up imaging, biopsy and/or additional imaging with CT scan.
== END 2023-10-23 15:16 | disposition home or self-care (01) ==
LOC: HO.HMGCX 15:15
PROVIDERS: PCP Internal Medicine; Visit Provider Internal Medicine
DX: R22.1 Localized swelling, mass and lump, neck (principal)
CPT/HCPCS: 76536

== ENCOUNTER 2023-12-09 10:52 | Outpatient (REF) | payer MEDICARE, SELFPAY ==
[2023-12-09 14:01] LABS: Blood Urea Nitrogen 18 mg/dL (9-16); Estimated Glomerular Filt Rate 55
== END 2023-12-09 10:53 | disposition home or self-care (01) ==
LOC: HO.HMGCLDS 10:52
PROVIDERS: PCP Internal Medicine; Visit Provider Internal Medicine
DX: R59.0 Localized enlarged lymph nodes (principal)
CPT/HCPCS: 36415; 82565; 84520

== ENCOUNTER 2023-12-29 07:40 | Outpatient (REF) | payer MEDICARE, SELFPAY ==
--- NOTE | ~2023-12-29 | CT_ITS ---
EXAMINATION: CT SOFT TISSUE NECK WITH CONTRAST CLINICAL INFORMATION: Localized enlarged lymph nodes. COMPARISON: No prior CT available. Ultrasound head and neck 10/23/2023. TECHNIQUE: Following the intravenous administration of 60 mL of Omnipaque 350 intravenous contrast, helical imaging was performed in the axial plane with generation of coronal and sagittal reformatted images. This CT examination was performed using dose optimization techniques as appropriate, variously including the following: *Automated exposure control *Adjustment of mA and/or kV according to patient size (this includes techniques or standardized protocols for targeted exams where dose is matched to indication/reason for exam; i.e. extremities or head) *Use of iterative reconstruction technique DLP: 449 mGy-cm Please note, due to [facility] contractual, systems, and staffing issues, an [facility] radiologist was not available for review and dictation of this case until 01/08/2024. FINDINGS: Images demonstrate no pathologic lymphadenopathy by size criteria or by morphology. The largest, a left subclavian lymph node measures 7 mm in short axis, has normal eddie morphology, and a small fatty hilum, not characteristics of a pathologic lymph node. A right level 2A lymph node has a normal fatty alden, normal morphology and measures 6 mm in short axis. A few additional smaller cervical chain lymph nodes are present, all consistent with reactive etiology. There is fatty change of the parotid glands. There are no parotid lesions. The submandibular glands appear normal. There are no sialoliths. Mild prominence of the tonsillar pillar soft tissues is present, presumably reactive, with a solitary right-sided palatine tonsilith. There is no retropharyngeal fluid collection. There is a retropharyngeal course of the right CCA, normal variant. Moderate calcifications of the left carotid bifurcation, and minimal calcification of the right are present. The brachiocephalic artery is mildly tortuous. No venous thrombosis. The thyroid gland is somewhat heterogeneous without dominant nodule seen by CT. There are likely subcentimeter small nodules present. The tongue, tongue base, oropharynx, hypopharynx, larynx, vocal cords, aryepiglottic folds, epiglottis, and subglottic trachea appear normal. The true vocal cords are adducted. Nurse Examiner spaces appear normal. The parapharyngeal fat planes are undisturbed. Imaged intracranial contents demonstrate no abnormal enhancement, mass effect, edema, or ventriculomegaly. Dural venous sinuses are patent. Imaged globes and orbital contents appear normal. Paranasal sinuses are normally pneumatized. The left mastoid tip is somewhat sclerotic. The mastoid air cells and tympanic cavities are aerated. The skull base is normal in appearance. The TM joints are normal. There are no masses present. Superior mediastinal structures demonstrate no abnormalities or lymphadenopathy. Imaged lung apices are clear within the confines of respiratory motion artifact. Mild mosaic attenuation of the lungs is likely due to partial rotatory state. No suspicious lytic or blastic bone lesion. Degenerative changes are present C4-5, C5-6, and C6-7. No gross facet abnormalities. Atlantoaxial joint appears normal aside from mild degenerative changes. CT/CT soft tissue neck w IV con IMPRESSION: 1. No acute findings or acute pathology within the neck. 2. There is no mass or pathologic lymphadenopathy within the neck. Imaged lymph nodes are within the realm of normal reactive etiology. 2. Additional ancillary findings as discussed in the body of the report. Electronically signed by: Esau Mcgarry MD 01/08/2024 03:27 PM EDT
[2023-12-29] MEDS: iohexoL 350 MG/ML 100 ML INFUS..BTL 60 ML IV (08:32)
== END 2023-12-29 07:41 | disposition home or self-care (01) ==
LOC: HO.CT 07:40
PROVIDERS: PCP Internal Medicine; Visit Provider Internal Medicine
DX: R59.0 Localized enlarged lymph nodes (principal)
CPT/HCPCS: 70491; Q9967

== ENCOUNTER → 2023-12-29 07:43 | Outpatient (BNV) | payer MEDICARE, SELFPAY | PROVIDERS: PCP Internal Medicine; Visit Provider Radiology Diagnostic Radiology | DX: R59.0 Localized enlarged lymph nodes (principal) | CPT/HCPCS: 70491 ==

== ENCOUNTER → 2024-04-15 08:57 | Outpatient (REF) | payer MEDICARE, SELFPAY ==
--- OUTSIDE RECORDS SUMMARY | 2024-04-15 09:10 | XMS_ITS | Data Portability ---
Author Organization [facility], [id number] Address [address] [place] [address] Care Team Providers Care Explosive Expert Name Role Phone [facility] Primary Care Provider Assessment No assessment recorded. Plan of Treatment Reminders Order Date Submit Date Provider Last Modified By Organization Details Last Modified Time Details Appointments None recorded. Lab None recorded. Referral None recorded. Procedures None recorded. Surgeries None recorded. Imaging None recorded. Medication Orders naproxen 500 mg tablet 2022 023 [facility], [address] [place] [address], [address], 3 15:08:30 cyclobenzap rine 10 mg tablet 2022 023 [facility], [address] [place], [address], 3 15:08:30 Patient TargetsNo targets recorded. Patient Instructions Encounter Date Encounter Id Patient Instructions Last Modified By Organization Details Last Modified Time 06/17/2022 [id number] shoulder pain: care instructions Not available 06/17/2022 15:08:28 You can hurt you r shoulder by using it too much during an activity, such as fishing or baseball. It can also happen as part of the everyday wear and tear of getting older. Shoulder injuries can be slow to heal, but your shoulder should get better with time. Your doctor may recommend a sling to rest your shoulder. If you have injured your shoulder, you may need testing and treatment. How can you care for yourself at home? Take pain medicines exactly as directed. If the doctor gave you a prescription medicine for pain, take it as prescribed. If you are not taking a prescription pain medicine, ask your doctor if you can take an rewo-ems-kuxhhob medicine. Do not take two or more pain medicines at the same time unless the doctor told you to. Many pain medicines contain acetaminophen, which is Tylenol. Too much acetaminophen (Tylenol) can be harmful. If your doctor recommends that you wear a sling, use it as directed. Do not take it off before your doctor tells you to. Put ice or a cold pack on the sore area for 10 to 20 minutes at a time. Put a thin cloth between the ice and your skin. If there is no swelling, you can put moist heat, a heating pad, or a warm cloth on your shoulder. Some doctors suggest alternating between hot and cold. Rest your shoulder for a few days. If your doctor recommends it, you can then begin gentle exercise of the shoulder, but do not lift anything heavy. Not available 06/17/2022 15:05:09 Reason for Referral None Reported. Problems Name Problem SNOMED Code Status Onset Date Resolution Date Notes Provider Name and Address Organization Details Recorded Time Neuropathy 901228535 Active 023 MIYA KELLY null, PA - [facility] 3 14:36:09 Asthma 391561068 Active 023 MIYA LUPICA null, PA - [facility] 3 14:36:18 Acid reflux 696900426 Active 023 MIYA LUPICA null, PA - [facility] 3 14:36:30 Problem Notes None recorded. Procedures Surgical History Date Name Laterality Status Provider Name and Address Organization Details Recorded Time delivery completed MIYA JEAN CLAUDEBART A PA - [facility] 06/17/2022 14:37:59 Appendectomy completed MIYA KELLY PA - [facility] 06/17/2022 14:38:05 procedure on vein completed MIYA ANTONIO A PA - [facility] 06/17/2022 14:38:19 Imaging Results None recorded. Procedure Notes None recorded. Medical Equipment None Reported. Allergies Allergen ID Allergen Name Allergen Category Reaction Reaction Severity Criticality Documentation Date Start Date Code Code System Note Provider Name and Address Organization Details Recorded Time 18340607 codeine medicatio n other Not available Not available 06/17/2022 2670 RxNorm blood press ure dropp ed KAY Boykin [facility] 3 14:33:50 156949 Latex (substanc e) environme nt,medica tion other Not available Not available 06/17/2022 23366 8007 SNOMED numbi ng effec t KAY Boykin - [facility] 3 14:34:22 Medications Name Sig Start Date Stop Date Status Note LastModified by Organization Details LastModified Time cyclobenzap rine 10 mg tablet TAKE ONE TABLET BY MOUTH AT BEDTIME FOR 10 DAYS active Not Available Not Available No t Available amoxicillin 500 mg capsule TAKE ONE CAPSULE BY MOUTH EVERY 8 HOURS UNTIL GONE 06/17 completed Not Available Not Available Not Available sulfamethox azole 800 mg-trimetho prim 160 mg tablet TAKE ONE TABLET BY MOUTH TWICE A DAY active Not Available Not Available No t Available alprazolam 0.5 mg tablet TAKE ONE TABLET BY MOUTH AT BEDTIME NEEDED FOR ANXIETY active Not Available Not Available No t Available lisinopril 10 mg tablet TAKE 1 TABLET BY MOUTH DAILY active Not Available Not Available No t Available omeprazole 20 mg capsule,del ayed release TAKE ONE CAPSULE BY MOUTH EVERY DAY active Not Available Not Available No t Available gabapentin 100 mg capsule TAKE 1 TO 2 CAPSULES BY MOUTH AT BEDTIME. active Not Available Not Available No t Available naproxen 500 mg tablet TAKE ONE TABLET BY MOUTH TWICE A DAY WITH MEALS FOR 10 DAYS active Not Available Not Available No t Available vitamin B84-enwom acid active Not Available Not Available Not Available Breo Ellipta 100 mcg-25 mcg/dose powder for inhalation INHALE ONE PUFF BY MOUTH EVERY DAY active Not Available Not Available No t Available Breo Ellipta 200 mcg-25 mcg/dose powder for inhalation INHALE ONE PUFF ONCE A DAY 06/17 completed Not Available Not Available Not Available Qvar RediHaler 80 mcg/actuati on HFA breath activated aerosol INHALE ONE PUFF BY MOUTH TWICE A DAY 06/17 completed Not Available Not Available Not Available Vitals Date Recorded Body height Body mass index (BMI) Body weight Body temperature Oxygen saturation Oxygen saturation in Arterial blood by Pulse oximetry Heart rate Respiratory rate Systolic blood pressure Diastolic blood pressure Provider Name and Address Organization Details Last Updated DateTime 3 154.94 cm 41.6 kg/m2 51046.3 2 g 97 [degF] 98 % 98 % 71 /min 16 /min 126 mm[Hg] 80 mm[Hg] MIYA KELLY PA - [facility] 14:40:49 Social History Question Answer Notes LastModified by Organizat ion Details LastModified Time Tobacco Smoking Status Former Smoker MIYA KELLY null, PA - [facility] 06/17/2022 14:37:40 What Is Your Level Of Alcohol Consumption? Occasional [email or web address] Information not available 06/17/2022 Do You Use Any Illicit Or Recreational Drugs? No [email or web address] Information not available 06/17/2022 Have You Recently Traveled Abroad? No [email or web address] Information not available 06/17/2022 Sex: Unknown Functional Status None recorded. Mental Status None recorded. Family History Relationship Description Onset Age of this Age Resolved Age Notes LastModified by Organization Details LastModified Time Unspecified Relation Malignant tumor of lung [email or web address] Not available 2022 14:36:58 Unspecified Relation Malignant neoplastic disease Not available 2022 14:37:04 Medical History No medical history recorded. Gynecological HistoryNo gynecological history recorded. Obstetrics History GPAL:G 0 P 0 0 0 0 Past Encounters Encounter ID Performer Location Encounter Start Date Encounter Closed Date Diagnosis/Indication Diagnosis SNOMED-CT Code Diagnosis ICD10 Code [id number] [address] [place] [address] 04/20/2017 10:42:53 04/20/2017 12:13:44 [id number] [address] [place] [address] 11/17/2016 14:16:03 11/17/2016 14:42:52 [id number] [address] [place] [address] 05/10/2017 11:25:47 05/10/2017 12:21:42 [id number] Dipesh Cummings NP [address] [place] [address] 06/17/2022 10:47:45 06/17/2022 15:11:09 Pain of right shoulder joint 4119771847 2407560 M25.511 Health Concerns Section Related Observation LastModified by Organization Detai ls LastModified Time None Recorded Concern Status LastModified by Organization Details LastModified Time None Recorded Advance Directives Directive None Recorded Payers Encounter Date Sequence Insurance Name Policy Number Policy Flood Covered Member ID Flood Member ID Guarantor Name 11/17/2016 1 [facility] [id number] Bibiana A A Achorn [id number] Bibiana A Achorn 04/20/2017 1 [facility] [id number] Bibiana A A Achorn [id number] Bibiana A Achorn 05/10/2017 1 [facility] [id number] Bibiana A A Achorn [id number] Bibiana A Achorn 06/17/2022 1 [facility] [id number] Bibiana A A Achorn [id number] Bibiana A Achorn Notes Date Note Type Note Provider Name and Address Organization Details Recorded Time 3 text/html Shoulder UCReported bypatient.source of patient informationInformation obtained from patient; Patient arrived at Urgent Care ambulatory Hand Dominance:right Location:right; anterior Quality:aching; stabbing; sharp; constant; worsening Severity:moderate; pain level 7/10 Duration:2 days Timing:acute; abrupt; intermittent episodes lasting: Context:lifting Alleviating Factors:rest; cortisone injection Aggravating Factors:lifting; carrying; pushing/pulling; ROM Associated Symptoms:no weakness; no numbness; no tingling; no swelling; no redness; no warmth; no ecchymosis; no catching/locking; no popping/clicking; no buckling; no grinding; no instability; no radiation down arm; no drainage; no fever; no chills; no weight loss; no change in bowel/bladder habits Previous InjuryNo prior injury to affected body part Previous TreatmentInjections Prior Imaging:none Dipesh Cummings NP [address] [place], [address], [place] - [facility] 06/17/2022 15:08:51 OBGyn Episode No OBEpisode recorded.
--- OUTSIDE RECORDS SUMMARY | 2024-04-15 09:10 | XMS_ITS | Patient Health Record ---
Author Organization [facility] Address [address] [place] [address] Care Team Providers Care Digital Composer Name Role Phone Po Vern CABRERA Primary Care Provider Rolando Coughlin [phone] ALLERGIES Allergen (clinical drug ingredient) Drug/Non Drug Allergy documented on EMR Reaction Allergy Type Onset Date Status Latex latex (uncoded) Unknown Allergy Acti ve codeine codeine (uncoded) Unknown Allergy Ac tive REASON FOR REFERRAL No Information MEDICATIONS Medication SIG (Take, Route, Fr equency, Duration) Notes Start Date End Date Status Gabapentin Active traMADol HCl Active Lisinopril Active Omeprazole Active Imitrex Active Xanax Active Vitamin C Active Breo Ellipta Active Ferrous Sulfate Acti ve IMMUNIZATIONS Vaccine Route Administration Date Status Comme nts Influenza Unknown 01/16/2021 Administered SOCIAL HISTORY Sex Assigned At : Social History Observation Description Sex Assigned At Unknown Alcohol Screen Question Answer Notes Did you have a drink contain ing alcohol in the past year? Yes How often did you have a dri nk containing alcohol in the past year? 2 to 3 times a week (3 points) How many drinks did you have on a typical day when you were drinking in the past year? 1 or 2 drinks (0 point) How often did you have 6 or more drinks on one occasion in the past year? Never (0 point) Points 3 Interpretation Positive PROBLEMS Problem Type ICD Code Onset Dates Problem Status W/U Status Risk SNOMED Code Notes Problem Iron deficiency anemia (D50.9) Active confirmed Iron deficien cy anemia (61263739) Problem Gastric polyp (K31.7) Active confirmed Gastric polyp (36274681) Problem Iron deficiency anemia, unspecified iron deficiency anemia type (D50.9) Active confirmed 76985280 Problem Gastroesophageal reflux (K21.9) Active confirmed Esophageal reflux finding (354093615) Problem Diverticulosis of colon (K57.30) Active confirmed Diverticulosi s of colon (649981033) Problem Gastroesophageal reflux disease, unspecified whether esophagitis present (K21.9) Active confirmed 530896396 PLAN OF TREATMENT Pending Test Test Name Order Date FERRITIN 01/16/2021 CBC w DIFF 01/16/2021 Pathology 02/05/2021 Future Test Test Name Order Date UPPER GI ENDOSCOPY 09/11/2011 COLONOSCOPY 09/11/2011 UPPER GI ENDOSCOPY 01/16/2021 COLONOSCOPY 01/16/2021 Insurance Providers Payer Name Payer Address Payer Phone Subscriber Number Group Number Insured Name Patient Relationship to Insured Coverage Start Date Coverage End Date [facility] [address] [place] [address] [phone] [id number] KASIE MONTEIRO Self - patient is the insured MEDICAL (GENERAL) HISTORY Medical History History ICD Code Colonoscopy 07-05-2002 was neg ative; colonoscopy in 10/2011 was neg. except for a hyperplastic polyp Migraines Anxiety Denies OH,DM,CVA,Lung disease,renal dise ase GERD-EGD 10/2011 was neg. exc ept for a small HH--no Garcia's nor esophagitis; duodenal biopsies were normal Hypertension Asthma COVID in 03/2020 Surgical History Surgery Date(Month/Year) C-sections (4) appy vein stripping hand operation
== END ==
LOC: HO.SL 08:57
PROVIDERS: PCP Internal Medicine; Visit Provider Internal Medicine
DX: G47.10 Hypersomnia, unspecified (principal)
CPT/HCPCS: 95806

== ENCOUNTER → 2024-04-15 09:18 | Outpatient (BNV) | payer MEDICARE, SELFPAY | PROVIDERS: PCP Internal Medicine; Visit Provider Internal Medicine | DX: G47.33 Obstructive sleep apnea (adult) (pediatric) (principal) | CPT/HCPCS: 95806 ==

== ENCOUNTER 2024-07-09 09:56 | Outpatient (REF) | payer MEDICARE, SELFPAY ==
[2024-07-09 17:54] LABS: Appearance Urine Clear; Color Urine Yellow; Glucose Urine UA Negative (Negative); Leukocyte Esterase Urine Moderate (2+) (Negative); Nitrite Urine Negative (Negative); Specific Gravity - Urine 1.015 (1.005-1.025); UMIC TRIGGER UACC YES; Urine Blood Negative (Negative); Urine Ketones Negative (Negative); Urine Protein Negative (Neg-Trace)
[2024-07-09 17:56] LABS: Bacteria Urine None Seen (None Seen); Hyaline Casts Urine 0-2 /LPF (0-2); RBC Urine 0-2 /HPF (0-2); Squamous Epithelial Cell Urine 0-2 /HPF (0-2); UACC Culture Trigger YES
== END 2024-07-09 09:57 | disposition home or self-care (01) ==
LOC: HO.LNP 09:56
PROVIDERS: PCP Internal Medicine; Visit Provider Internal Medicine
DX: R30.0 Dysuria (principal)
CPT/HCPCS: 81001; 81003; 87086; 87147

== ENCOUNTER 2024-07-09 09:56 | Outpatient (AMB) | payer MEDICARE, SELFPAY ==
[2024-07-09 10:03] VITALS: BP 132/70; PULSE 74; RESP 18; TEMP 36.8; O2SAT 97; BMI 44.8
--- NOTE | 2024-07-09 10:03 | AM.OFFVISMDC ---
Intake Vital Signs 07/09/24 10:03 Height 5 ft 1 in Weight 237 lb BMI 44.8 BP 132/70 Respiration 18 Pulse 74 Pulse Source Pulse Oximeter Temp 98.2 F Pulse Oximetry (%) 97 Oxygen Delivery Method Room Air Intake Visit Reasons: AWV G0438 Wire Rigger Required: No Accompanied by: Self / Same As Patient Allergies codeine Allergy (Unknown, Verified 07/09/24 10:03) Unknown latex [Latex] Allergy (Unknown, Verified 07/09/24 10:03) BURNING oxycodone [Oxycodone] Allergy (Unknown, Verified 07/09/24 10:03) FAINT/TACHYCARDIA tramadol Adverse Reaction (Intermediate, Verified 07/09/24 10:03) ORELLANA Medication List - Last Reconciled 07/09/24 by Vern Saul MD albuterol sulfate 90 mcg/actuation (ProAir HFA) 2 puffs inhalation Q6H PRN alprazolam 0.5 mg PO BEDTIME PRN 30 days dxjlhki-anuccwcphcliu-miusddeh 250-250-65 mg (Excedrin Migraine) 2 tabs PO Q6H PRN [AUTO PAP 6-20 cm water Humidified Air Sleep study done 04/15/2024 showing moderately severe AHI of 18 with nocturnal hypoxemia advised auto PAP mode 6-20 cm water.] cyanocobalamin (vitamin B-12) 1,000 mcg PO DAILY fluticasone furoate-vilanterol 100-25 mcg/dose (Breo Ellipta) 1 ea PO DAILY gabapentin 1-2 cap orally bedtime PRN; lisinopril 10 mg PO DAILY 90 days meloxicam 15 mg PO DAILY omeprazole 20 mg PO DAILY tirzepatide (weight loss) (Zepbound) 2.5 mg (0.5 mL) subcut QWEEK HPI AWV G0438 HPI Details gastro, Dr. Urban, , Neuro-Hazraji, gyne-Kristan, [place]phalmology- [facility] [place] having chest pain 1 months, feels sob, PFSH Medical History Asthma, persistent controlled Pre-operative clearance Knee pain, right Iron deficiency anemia Thrombophlebitis Hip pain, left COVID-19 virus infection Synovial cyst of popliteal space [Neal], left knee Hiatal hernia Migraine Peripheral vascular disease Hypertension Obesity Vitamin D deficiency Hypercholesterolemia GERD (gastroesophageal reflux disease) Asthma Peripheral neuropathy Surgical History History of esophagogastroduodenoscopy (EGD) Hx of colonoscopy History of vein stripping History of carpal tunnel release History of appendectomy History of section Family History (Updated 07/09/24 @ 10:37 by Vern Saul MD) Father Lung cancer Mother Lung cancer Paternal Grandfather Lung cancer Paternal Uncle Lung cancer Myocardial infarct Sister Pancreatic cancer Social History Household Members: Spouse Housing: House Are you a primary home care nurse to a significant other at home: No Do you presently have visiting nurse or other home services: No Alcohol intake: current Alcohol intake frequency: a few times a week Alcohol type: beer and wine Comment: 2 days week 2 drinks Patient Tobacco Use Status: Former Tobacco user Tobacco use type: Cigarette Years Smoked: quit in the e-Cigarette/Vaping Use: Never Used Second Hand Smoke Exposure: No service: No Current occupational status: retired Current occupation: rt handed Cognitive needs: No Hearing needs: No Vision needs: Yes (Glasses) Questionnaire Medicare Wellness Checkup [age] 65-67 What gender do you identify with?: female During the past 4 weeks, how much have you been bothered by emotional problems such as feeling anxious, depressed, irritable, sad or downhearted, and blue?: not at all During the past 4 weeks, has your physical & emotional health limited your social activities with family, friends, neighbors, or groups?: not at all During the past 4 weeks, how much bodily pain have you generally had?: very mild pain During the past 4 weeks, was someone available to help you if you needed & wanted help?: yes, as much as I wanted During the past 4 weeks, what was the hardest physical activity you could do for at least 2 minutes?: very light Can you get to places out of walking distance without help? (For eg., can you travel alone on buses, taxis or drive your car?): Yes Can you go shopping for groceries or clothes without someone's help?: Yes Can you prepare your own meals?: Yes Can you do your housework without help?: Yes Because of any health problems, do you need the help of another person with your personal care needs such as eating, bathing, dressing or getting around the house?: No Can you handle your own money without help?: Yes During the past 4 weeks, how would you rate your health in general?: fair During the past 4 weeks how have things been going for you?: pretty well Are you having difficulties driving your car?: no Do you always fasten your seat belt when you are in a car?: yes, usually During past 4 weeks, have you been bothered by the following: never: Falling or dizzy when standing up, Trouble eating well? and Problems using the telephone?, seldom: Teeth or denture problems? and Tiredness or fatigue? and often: Sexual problems? Have you fallen 2 or more times in the past year?: No Are you afraid of falling?: No Are you a smoker?: no During the past 4 weeks, how many drinks of wine, beer, or other alcoholic beverages did you have?: 1 drink or less per week Do you exercise for about 20 minutes 3 or more times a week?: no, I usually do not exercise this much Have you been given information to help with the following?: yes: Hazards in your house that might hurt you? and no: Keeping track of your medications? How often do you have trouble taking medicines the way you have been told to take them?: I always take medicine as prescribed How confident are you that you can control & manage most of your health problems?: very confident What is your race?: White PHQ-9 Over the last 2 weeks, how often have you been bothered by any of the following problems? 1. Little interest or pleasure in doing things: not at all 2. Feeling down, depressed, or hopeless: not at all 3. Trouble falling or staying asleep, or sleeping too much: several days 4. Feeling tired or having little energy: several days 5. Poor appetite or overeating: more than half the days 6. Feeling bad about yourself - or that you are a failure or have let yourself or your family down: not at all 7. Trouble concentrating on things, such as reading the newspaper or watching television: not at all 8. Moving or speaking so slowly that other people could have noticed. Or the opposite - being so fidgety or restless that you have been moving around a lot more than usual: several days 9. Thoughts that you would be better off or of hurting yourself in some way: not at all Total score: 5 Source: Developed by Drs. Rolando Dominguez, Terri Ca, Kwame Gonzalez and colleagues, with an educational stacy from [employer]. Review of Systems Const Denies poor appetite and Denies weakness Eyes Denies no additional complaints ENT Reports Normal hearing present, Denies dizziness, Denies nasal congestion, Denies tinnitus and Denies sore throat Card Denies chest pain, Denies syncope, Denies rapid heart rate and Denies dyspnea Resp Denies cough and Denies dyspnea GI Denies change in stool character, Reports constipation, Denies diarrhea, Denies nausea and Denies vomiting Denies urinary frequency, Denies difficulty voiding and Denies dysuria Neuro Reports Normal hearing present, Denies confusion, Denies dizziness, Denies syncope and Denies weakness Psych Denies confusion Physical Exam Vital Signs: Last Vital Signs Temp 98.2 F 07/09/24 10:03 Pulse 74 07/09/24 10:03 Resp 18 07/09/24 10:03 BP 132/70 07/09/24 10:03 Pulse Ox 97 07/09/24 10:03 Oxygen Delivery Method Room Air 07/09/24 10:03 BMI result Body Mass Index 44.8 Const General: alert and awake; No confusion Orientation/consciousness: No confusion HEENT Head: Yes normocephalic Ears: external ears normal and TM's normal bilaterally Face and sinus: Yes normal facial exam Mouth: moist mucous membranes Throat: Yes tonsils normal Eyes Conjunctivae: conjunctivae normal Pupils: Equal, round and reactive pupils present and Pupil accommodation reflex normal Direct Ophthalmoscopy: normal light reflex Neck Neck: No lymphadenopathy Thyroid: Thyroid normal Chest Chest palpation & inspection: normal inspection of the chest Resp Effort & Inspection: normal respiratory effort and no audible wheezes Auscultation: clear to auscultation bilaterally, no crackles, no wheezes and lung sounds not diminished Cardio Rate: regular rate Rhythm: regular rhythm Peripheral pulses: radial pulses present and dorsalis pedis present GI Palpation (GI): no masses Auscultation: normal bowel sounds and normoactive bowel sounds Rectal Exam - Female: deferred Skin General skin exam: no rashes or lesions noted Rashes: no rashes Neuro General: deep tendon reflexes 2+ bilaterally and No confusion Cranial nerves: Yes Equal, round and reactive pupils present, Yes Midline tongue present, Yes Normal hearing present and Yes Ability to bilaterally elevate shoulders present Cognition (Neuro): normal cognition Gait exam (Neuro): Normal gait present Motor exam (neuro): 5/5 motor strength present throughout Deep tendon reflexes (DTR's): Right brachioradialis reflex intensity grade: 2+, Left brachioradialis reflex intensity grade: 2+, Right patellar reflex intensity grade: 2+ and Left patellar reflex intensity grade: 2+ Extrem General: No edema Assessment & Plan Assessment & Plan (1) Annual physical exam: Code(s): Z00.00 - Encounter for general adult medical examination without abnormal findings Plan: Patient is advised to eat healthy, keep well hydrated, keep active and have adequate sleep. (2) Obstructive sleep apnea hypopnea, moderate: Comment: Sleep study done 04/15/2024 showing moderately severe AHI of 18 with nocturnal hypoxemia advised auto PAP mode 6-20 cm water. Code(s): G47.33 - Obstructive sleep apnea (adult) (pediatric) Plan: Discussed about importance of using the CPAP regularly (3) Asthma: Code(s): J45.909 - Unspecified asthma, uncomplicated Qualifiers: Asthma severity: mild Asthma persistence: intermittent Asthma complication type: uncomplicated Qualified Code(s): J45.20 - Mild intermittent asthma, uncomplicated Plan: Continue with albuterol inhaler as needed on Breo (4) GERD (gastroesophageal reflux disease): Code(s): K21.9 - Gastro-esophageal reflux disease without esophagitis Qualifiers: Esophagitis presence: without esophagitis Qualified Code(s): K21.9 - Gastro-esophageal reflux disease without esophagitis Plan: Avoid the foods that causes that usually spicy foods, tomato products, juices, coffee, soda and foods that your sensitive to. After eating do not lie down, allow 3-4 hours before in lie down. And keep the head of bed above 30 degrees to avoid the acid from going up. (5) Hypercholesterolemia: Code(s): E78.00 - Pure hypercholesterolemia, unspecified Plan: Avoid fried foods, chicken skin, eggs, butter margarine, pastries and meat. Be it pork or beef they have a lot of cholesterol LDL goal of less than 130 and triglyceride of less than 150 repeat blood work (6) Hypertension: Code(s): I10 - Essential (primary) hypertension Qualifiers: Hypertension type: essential hypertension Qualified Code(s): I10 - Essential (primary) hypertension Plan: Continue with blood pressure medication. Decrease salt intake and exercise on lisinopril 10 mg once a day (7) Morbid obesity: Code(s): E66.01 - Morbid (severe) obesity due to excess calories Plan: Diet and exercise (8) Impaired glucose tolerance: Code(s): R73.02 - Impaired glucose tolerance (oral) Plan: Decrease the amount of carbohydrate intake, pasta, bread, rice and potatoes are all sugar and that is aside from all the sweet stuff, remember that fruits are good but they are Sweet also. Request for no blood work (9) Dysphagia: Code(s): R13.10 - Dysphagia, unspecified (10) Dysuria: Code(s): R30.0 - Dysuria Plan History of Present Illness The patient is a 64-year-old female presenting for her annual physical examination. The primary concerns include a recent weight gain of 9 pounds since October 2023 and associated hip pain potentially linked to osteoarthritis. The patient experiences discomfort predominantly on the right hip, limiting her activity. Her recent imaging confirmed degenerative changes consistent with arthritis but no acute bony abnormalities. Obstructive sleep apnea management continues with CPAP, following s diagnostic sleep study. The patient adheres to asthma management, using prescribed inhalers effectively. Intermittent urinary symptoms consisting of burning and itchiness prompted a discussion on ruling out urinary tract infections. No recent pneumonias or major surgical interventions since April alignment visits. Hypercholesterolemia and GERD remain stable on consistent pharmacological management, and antihypertensives maintain her blood pressure. Vitamin D20-sntkbbc urinary symptoms are addressed as a possible secondary concern. A planned mammogram and bone density scan are due per the patient's health maintenance schedule. Health Maintenance - Mammogram scheduled for August 2023 - Bone density scan due; last conducted in 2019 - CPAP therapy compliance for sleep apnea management - Annual influenza vaccination received in February - Tetanus vaccination recommended; last received in 2013 - Regular screening for urinary tract infection due to symptoms - Continuous monitoring of vitamin B12 levels due to supplementation - Monitoring of lipid levels and blood pressure medication adherence Social History - Recently retired, attributed as a factor in recent weight gain - Engages in home exercise routines and intermittent walking - Reports stable family environment with supportive spouse - No recent alcohol consumption noted Review of Systems - Constitutional: Denies fevers, weight loss. - Respiratory: Reports increased use of inhaler; denies wheezing. - Cardiovascular: Denies ongoing chest pain; history of episodic chest tightness. - Gastrointestinal: Denies dysphagia but reports occasional water swallowing issues. - Genitourinary: Reports urinary symptoms including burning and itchiness. - Musculoskeletal: Reports hip pain related to osteoarthritis. - Neurological: Reports tremors attributed to restless leg syndrome. Physical Exam General: Cooperative, healthy appearing, comfortable, no acute distress and well developed Orientation: Patient oriented x3 Limitations: No limitations Head: Normal to inspection Ears: Hearing grossly normal bilaterally Nose: Normal external nose present Face and sinus: Normal facial exam Eyes: Appearance normal, both eyes and all related structures Neck: Normal visual inspection and Yes full ROM Respiratory: Normal respiratory effort and able to speak in complete sentences. Clear to auscultation bilaterally Cardiovascular: Regular rate and rhythm. Normal S1 and S2 GI: Normal to inspection. Soft to palpation and nontender Skin: No rashes or lesions noted Neuro: Patient oriented x3 Extremities: Normal to inspection Results - Sleep Study (April 2023): Confirmed obstructive sleep apnea. - Imaging: X-rays showed arthritic changes in the hip with no acute pathology. - Labs: Previous hemoglobin 5.8 in July 2023, normal lipid panel. - Urinary Analysis: Pending due to symptomatic presentation. Plan The management for obstructive sleep apnea involves continued CPAP adherence and potential device adjustments. Hip osteoarthritis is treated with meloxicam, alongside advised physical therapy for maintaining joint functionality. The patient's weight gain post-detention is addressed through recommendations on nutritional adjustments and consistent physical activity. Current asthma treatment remains with Breo and Albuterol for symptom control. Urinary symptoms will be evaluated with a urinalysis to exclude infections and examine vitamin supplementation effects. Health maintenance includes scheduling mammograms, bone density scans, and a tetanus booster vaccine, all of which are critical preventative care measures. Patient was informed and verbally consented to the use of an ambient scribe for clinic note documentation during this visit. Discussion Notes Patient Instructions Orders: Orders Hemoglobin A1c Today R73.02 - Impaired glucose tolerance (oral) Complete Blood Count Auto Diff Today R73.02 - Impaired glucose tolerance (oral) Lipid Panel Today E78.00 - Pure hypercholesterolemia, unspecified, R73.02 - Impaired glucose tolerance (oral) Vitamin B12 and Folate Today R73.02 - Impaired glucose tolerance (oral) Vitamin D 25-OH Total Today R73.02 - Impaired glucose tolerance (oral) Free T4 (Free Thyroxine) Today R73.02 - Impaired glucose tolerance (oral) XR DEXA axial skeleton Today M81.0 - Age-related osteoporosis without current pathological fracture, Z00.00 - Encounter for general adult medical examination without abnormal findings Comprehensive Met. Panel Today R73.02 - Impaired glucose tolerance (oral) Thyroid Stimulating Hormone Today R73.02 - Impaired glucose tolerance (oral) FL barium swallow Today R13.10 - Dysphagia, unspecified FL upper GI series Today R13.10 - Dysphagia, unspecified AMB Urinalysis Automated Today R30.0 - Dysuria, Z13.9 - Encounter for screening, unspecified Medications: New tirzepatide (weight loss) (Zepbound) for 4 weeks 2.5 mg (0.5 mL) subcut QWEEK 2 mL 3RF E66.01 - Morbid (severe) obesity due to excess calories, G47.33 - Obstructive sleep apnea (adult) (pediatric) Changed From albuterol sulfate 90 mcg/actuation (ProAir HFA) 2 puffs inhalation Q6H PRN 8.5 grams 0RF bronchospasm R30.0 - Dysuria To albuterol sulfate 90 mcg/actuation 2 puffs inhalation Q6H PRN 8.5 grams 0RF bronchospasm R30.0 - Dysuria Quality Reporting (2019) Depression/Bipolar (159/160/161/177) PHQ-9: Total score: 5 Coding Level of Care Code Medicare Subsequent (G0439) Diagnoses Annual physical exam Z00.00 Obstructive sleep apnea hypopnea, moderate G47.33 Mild intermittent asthma without complication J45.20 Asthma severity: mild Asthma persistence: intermittent Asthma complication type: uncomplicated Gastroesophageal reflux disease without esophagitis K21.9 Esophagitis presence: without esophagitis Hypercholesterolemia E78.00 Essential hypertension I10 Hypertension type: essential hypertension Morbid obesity E66.01 Impaired glucose tolerance R73.02 Dysphagia R13.10 Dysuria R30.0
--- OUTSIDE RECORDS SUMMARY | 2024-07-09 11:02 | XMS_ITS | Clinical Summary ---
Author Organization [email or web address] Address [address] [place] [address] [address] [place] [address] Care Team Providers Care Media Marketing Specialist Name Role Phone Unavailable Primary Care Provider Unavailabl e Immunizations Name Administration Dates Next Due Influenza, IIV3, injectable 01/16/2021 Influenza, seasonal, injectable, preservative fr ee 2024 Social History Tobacco Use Types Packs/Day Years Used Date Smoking Tobacco: Never Assessed Comments Unknown Sex and Gender Information Value Date Recorded Sex Assigned at Female 01/28/2024 10:58 AM EDT Legal Sex Female 10:56 AM EDT Gender Identity Female 01/28/2024 10:58 AM EDT Sexual Orientation Straight 01/28/2024 10 :58 AM EDT Plan of Treatment Health Maintenance Due Date Last Done Comments CT Colonography 1958 Colonoscopy 1958 Colorectal Cancer Screening 1958 Depression Screening 1958 FIT DNA/Cologuard 1958 FIT 1958 FOBT 1958 SDOH Screening 1958 Sigmoidoscopy 1958 Alcohol/Substance Use Screening 1970 Tobacco Screening 1970 Hepatitis C Screening 01/27/1976 DTaP/Tdap/Td Vaccines (1 - Tdap) 1977 Pneumococcal Vaccine: 50+ Years (1 of 2 - PCV) 1977 Mammogram 1998 Zoster Vaccines (1 of 2) 01/27/2008 RSV Patients and Patients Aged 60 years or older (1 - Risk 60-74 years 1-dose series) 2018 COVID-19 Vaccine ( - 2023-2 5 season) 2024 Influenza Vaccine Completed 2024, 01/16/2021 HIB Vaccines Aged Out No longer eligi ble based on patient's age to complete this topic HPV Vaccines Aged Out No longer eligi ble based on patient's age to complete this topic Hepatitis A Vaccines Aged Out No long er eligible based on patient's age to complete this topic Hepatitis B Vaccines Aged Out No long er eligible based on patient's age to complete this topic IPV Vaccines Aged Out No longer eligi ble based on patient's age to complete this topic Meningococcal Vaccine Aged Out No gucci aldair eligible based on patient's age to complete this topic RSV under 20 months Aged Out No longe r eligible based on patient's age to complete this topic Rotavirus Vaccines Aged Out No longer eligible based on patient's age to complete this topic Insurance MEDICARE [facility] MED [facility]
--- OUTSIDE RECORDS SUMMARY | 2024-07-09 11:02 | XMS_ITS | Data Portability ---
Author Organization [facility], [address] Address [address] [place] [address] Care Team Providers Care Sample Selector Name Role Phone [facility] Primary Care Provider [phone] Assessment No assessment recorded. Plan of Treatment Reminders Order Date Submit Date Provider Last Modified By Organization Details Last Modified Time Details Appointments None recorded. Lab None recorded. Referral None recorded. Procedures None recorded. Surgeries None recorded. Imaging None recorded. Medication Orders naproxen 500 mg tablet 2022 023 [facility], [address] [place] [address], [address], 3 15:08:30 cyclobenzap rine 10 mg tablet 2022 023 [facility], [address] [place], [address], 3 15:08:30 Patient TargetsNo targets recorded. Patient Instructions Encounter Date Encounter Id Patient Instructions Last Modified By Organization Details Last Modified Time 06/17/2022 [id number] shoulder pain: care instructions Not available 06/17/2022 [...] your doctor if you can take an dcdw-krs-dwpglbe medicine. Do not take two or more [...] and Address Organization Details Recorded Time Neuropathy 686551811 Active 023 MIYA KELLY null, [place] - [facility] 3 14:36:09 Asthma 976555440 Active 023 MIYA LUPICA null, PA - [facility] 3 14:36:18 Acid reflux 255975440 Active 023 MIYA LUPICA null, PA - [...] ed KAY Boykin [facility] 3 14:33:50 [id number] Latex (substanc e) environme nt,medica tion other Not available Not available 06/17/2022 [id number] SNOMED numbi ng effec t KAY [...] Available Not Available No t Available vitamin Y55-oqcgw acid active Not Available Not Available Not [...] Updated DateTime 3 154.94 cm 41.6 kg/m2 63937.3 2 g 97 [degF] 98 % 98 % 71 /min 16 /min 126 mm[Hg] 80 mm[Hg] MIYA KELLY PA - [facility] 14:40:49 Social History Question Answer Notes LastModified by Organizat ion Details LastModified Time Tobacco Smoking Status Former Smoker MIYA KELLY null, [place] - [facility] 06/17/2022 14:37:40 What Is Your Level Of Alcohol Consumption? Occasional [email or web address] Information not available 06/17/2022 Do You Use Any Illicit Or Recreational Drugs? No Information not available 06/17/2022 Have You Recently Traveled Abroad? No [email or web address] Information not available 06/17/2022 Sex: Unknown Functional Status None recorded. Mental Status None recorded. Family History Relationship Description Onset Age of this Age Resolved Age Notes LastModified by Organization Details LastModified Time Unspecified Relation Malignant tumor of lung [email or web address] Not available 2022 14:36:58 Unspecified Relation Malignant neoplastic disease [email or web address] Not available 2022 14:37:04 Medical History No medical history recorded. Gynecological HistoryNo gynecological history recorded. Obstetrics History GPAL:G 0 P 0 0 0 0 Past Encounters Encounter ID Performer Location Encounter Start Date Encounter Closed Date Diagnosis/Indication Diagnosis SNOMED-CT Code Diagnosis ICD10 Code Diagnosis Note [id number] [address] [place] [address] 04/20/2017 10:42:53 04/20/2017 12:13:44 [id number] [address] [place] [address] 11/17/2016 14:16:03 11/17/2016 14:42:52 [id number] [address] [place] [address] 05/10/2017 11:25:47 05/10/2017 12:21:42 [id number] Dipesh Cummings NP [address] [place] [address] 06/17/2022 10:47:45 06/17/2022 15:11:09 Pain of right shoulder joint 3235888412 4823821 M25.511 Health Concerns Section Related Observation LastModified by Organization Detai ls LastModified Time None Recorded Concern Status LastModified by Organization Details LastModified Time None Recorded Advance Directives Directive None Recorded Payers Encounter Date Sequence Insurance Name Policy Number Policy Flood Covered Member ID Flood Member ID Guarantor Name 11/17/2016 1 [facility] [id number] Bibiana A A Achorn [id number] Bibiana A Achorn 04/20/2017 1 [facility] [id number] Bibiana A A Achorn [id number] Bibiana A Achorn 05/10/2017 1 [facility] [id number] Bibiana A A Achorn [id number] Bibiana A Achorn 06/17/2022 1 [facility] [id number] Bibiana A A Achorn [id number] Bibiana A Achorn Notes Date Note Type [...] TreatmentInjections Prior Imaging:none Dipesh Cummings NP [address] [place], [address], [place] - [facility] 06/17/2022 15:08:51 OBGyn Episode No OBEpisode recorded.
--- OUTSIDE RECORDS SUMMARY | 2024-07-09 11:03 | XMS_ITS | Patient Health Record ---
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 Name Role Phone Po Vern CABRERA Primary Care Provider Rolando Coughlin [phone] Allergies Allergen (clinical drug ingredient) Drug/Non Drug Allergy documented on EMR Reaction Allergy Type Onset Date Status Latex latex (uncoded) Unknown Allergy Acti ve codeine codeine (uncoded) Unknown Allergy Ac tive Reason For Referral No Information Medications Medication SIG (Take, Route, Fr equency, Duration) Notes Start Date End Date Status Gabapentin Active traMADol HCl Active Lisinopril Active Omeprazole Active Imitrex Active Xanax Active Vitamin C Active Breo Ellipta Active Ferrous Sulfate Acti ve Immunizations Vaccine Route Administration Date Status Comme nts Influenza Unknown 01/16/2021 Administered Social History Alcohol Screen Question Answer Notes Did you [...] Never (0 point) Points 3 Interpretation Positive Section Notes: Nonsmoker; occasional alcoho l Nonsmoker; occasional alcoho l Problems Problem Type SNOMED Code ICD Code Onset Dates Problem Status W/U Status Risk Notes Problem Iron deficiency anemia (83018524) Iron deficiency anemia (D50.9) Active confirmed Problem Gastric polyp (13900092) Gastric polyp (K31.7) Active confirmed Problem 88233125 Iron deficiency anemia, unspecified iron deficiency anemia type (D50.9) Active confirmed Problem Esophageal reflux finding (983691942) Gastroesophageal reflux (K21.9) Active confirmed Problem Diverticulosis of colon (003251920) Diverticulosis of colon (K57.30) Active confirmed Problem 307452197 Gastroesophageal reflux disease, unspecified whether esophagitis present (K21.9) Active confirmed Plan Of Treatment Pending Test Test Name Order Date FERRITIN 01/16/2021 CBC w DIFF 01/16/2021 Pathology 02/05/2021 Future Test Test Name Order Date UPPER GI ENDOSCOPY 09/11/2011 COLONOSCOPY 09/11/2011 UPPER GI ENDOSCOPY 01/16/2021 COLONOSCOPY 01/16/2021 Insurance Providers Payer Name Payer Address Payer Phone Subscriber Number Group Number Insured Name Patient Relationship to Insured Coverage Start Date Coverage End Date [facility] [address] [place] [phone] [id number] KASIE MONTEIRO Self - patient is the insured Medical (General) History Medical History History ICD Code Colonoscopy 07-05-2002 was neg ative; colonoscopy in 10/2011 was neg. except for a hyperplastic polyp Migraines Anxiety Denies NM,DM,CVA,Lung disease,renal dise ase GERD-EGD 10/2011 was neg. exc ept for a small HH--no Garcia's nor esophagitis; duodenal biopsies were normal Hypertension Asthma COVID in 03/2020 Surgical History Surgery Date(Month/Year) C-sections (4) appy vein stripping hand operation
== END 2024-07-09 10:56 | disposition home or self-care (01) ==
PROVIDERS: PCP Internal Medicine; Visit Provider Internal Medicine
DX: Z00.00 Encounter for general adult medical examination without abnormal findings (principal); G47.33 Obstructive sleep apnea (adult) (pediatric); E66.01 Morbid (severe) obesity due to excess calories; Z68.41 Body mass index [BMI] 40.0-44.9, adult; J45.20 Mild intermittent asthma, uncomplicated; K21.9 Gastro-esophageal reflux disease without esophagitis; E78.00 Pure hypercholesterolemia, unspecified; I10 Essential (primary) hypertension; R73.02 Impaired glucose tolerance (oral); R13.10 Dysphagia, unspecified; R30.0 Dysuria

== ENCOUNTER 2024-08-17 21:42 | Emergency (ER) | payer MEDICARE, SELFPAY ==
[2024-08-17 21:54] VITALS: BP 165/68; PULSE 77; RESP 18; TEMP 36.8; O2SAT 96; BMI 41.8
[2024-08-18 00:30] VITALS: BP 132/56; PULSE 74
[2024-08-18] MEDS: EPINEPHrine 1 MG/ML VIAL 0.3 MG IM (00:30)
[2024-08-18] MEDS: methylPREDNISolone Sod Succ 125 MG/2 ML VIAL IVPUSH (00:37)
[2024-08-18] MEDS: 0.9 % Sodium Chloride 1,000 ML 999 ML IV (00:37)
[2024-08-18] MEDS: Famotidine/PF 20 MG/2 ML VIAL IVPUSH (00:37)
[2024-08-18] MEDS: diphenhydrAMINE HCL 50 MG/ML VIAL 25 MG IVPUSH (00:37)
[2024-08-18 00:45] VITALS: BP 132/58; PULSE 85; RESP 19; TEMP 36.7; O2SAT 98
--- NOTE | 2024-08-18 01:17 | ED_ITS ---
HPI - General Adult General Chief complaint: Allergic Reaction Stated complaint: Hives Time Seen by Provider: 08/18/24 00:04 Source: patient Limitations: no limitations History of Present Illness ED Provider: Sharifa Del Rio PA-C HPI narrative: 64-year-old female with a history of obesity, asthma, hypertension, GERD who presents with urticaria. Patient states she was cleaning her outer patio furniture yesterday. Shortly thereafter she developed wheezing, diffuse urticaria and a sore throat. Patient also developed swelling of the lower lip. Patient took Benadryl, use her inhaler. The swelling of the lower lip has decreased, she no longer has a sore throat. The urticaria are still present and are migrating. Related Data Home Medications ?Medication ?Instructions ?Recorded ?Confirmed enlkkrm-ysedefpxtyega-irvljqns 250 2 tab PO Q6H PRN Headache 03/14/20 07/09/24 mg-250 mg-65 mg tablet (Excedrin Migraine) cyanocobalamin (vitamin B-12) 1,000 mcg PO DAILY 07/03/23 07/09/24 1,000 mcg capsule gabapentin 100 mg capsule See Rx Instructions PO BEDTIME PRN 07/09/24 07/09/24 Previous Rx's ?Medication ?Instructions ?Recorded alprazolam 0.5 mg tablet 0.5 mg PO BEDTIME PRN Anxiety 30 07/03/23 days #30 tabs fluticasone furoate 100 1 ea PO DAILY #180 ea 02/01/24 mcg-vilanterol 25 mcg/dose inhalation powder (Breo Ellipta) meloxicam 15 mg tablet 15 mg PO DAILY #30 tabs 03/01/24 AUTO PAP 6-20 cm water Humidified #1 ea 04/21/24 Air lisinopril 10 mg tablet 10 mg PO DAILY 90 days #90 caps 05/29/24 albuterol sulfate 90 mcg/actuation 2 puff inhalation Q6H PRN 07/09/24 aerosol inhaler bronchospasm #8.5 grams nitrofurantoin 100 mg PO Q12H 7 days #14 caps 07/09/24 monohydrate/macrocrystals 100 mg capsule (Macrobid) tirzepatide (weight loss) 2.5 2.5 mg (0.5 mL) subcut QWEEK #2 mL 07/09/24 mg/0.5 mL subcutaneous pen injector (Zepbound) omeprazole 20 mg capsule,delayed 20 mg PO DAILY #90 caps 07/31/24 release epinephrine 0.3 mg/0.3 mL 0.3 mg (0.3 mL) IM Q10M PRN 08/18/24 injection, auto-injector anaphylaxis #2 ea methylprednisolone 4 mg tablets in 4 mg PO QAM #21 ea 08/18/24 a dose pack (Medrol (Igor)) Allergies Allergy/AdvReac Type Severity Reaction Status Date / Time codeine Allergy Unknown Unknown Verified 08/17/24 21:59 latex [Latex] Allergy Unknown BURNING Verified 08/17/24 21:59 oxycodone [Oxycodone] Allergy Unknown FAINT/TACHY Verified 08/17/24 21:59 CARDIA tramadol AdvReac Intermediate ORELLANA Verified 08/17/24 21:59 Review of Systems Review of Systems: Yes all other systems are reviewed and are negative Constitutional: Constitutional: Denies fatigue and Denies fever(s) ENT: Reports sore throat and Denies tongue swelling Cardiovascular: Cardiovascular: Denies chest pain and Reports dyspnea Respiratory: Respiratory: Reports dyspnea, Denies stridor and Reports wheezing Gastrointestinal: Gastrointestinal: Denies diarrhea, Denies nausea and Denies vomiting Integumentary/Breasts: Skin/Breast: Reports pruritus and Reports rash Endocrine: Endocrine: Denies fatigue Allergic/Immunologic: Allergic/Immunologic: Denies tongue swelling and Reports wheezing PMFSH Past Medical History Attestation statement: The following information was validated with the patient. Medical History Asthma, persistent controlled Pre-operative clearance Knee pain, right Iron deficiency anemia Thrombophlebitis Hip pain, left COVID-19 virus infection Synovial cyst of popliteal space [Neal], left knee Hiatal hernia Migraine Peripheral vascular disease Hypertension Obesity Vitamin D deficiency Hypercholesterolemia GERD (gastroesophageal reflux disease) Asthma Peripheral neuropathy Surgical History History of esophagogastroduodenoscopy (EGD) Hx of colonoscopy History of vein stripping History of carpal tunnel release History of appendectomy History of section Family History Family History (Updated 07/09/24 @ 10:37 by Vern Saul MD) Father Lung cancer Mother Lung cancer Paternal Grandfather Lung cancer Paternal Uncle Lung cancer Myocardial infarct Sister Pancreatic cancer Social History Social History Household Members: Spouse Housing: House Are you a primary insurance healthcare representative to a significant other at home: No Do you presently have visiting nurse or other home services: No Alcohol intake: current Alcohol intake frequency: holidays/special occasions only Alcohol type: beer and wine Comment: 2 days week 2 drinks Patient Tobacco Use Status: Former Tobacco user Tobacco use type: Cigarette Years Smoked: quit in the 70's Smoked in Last 30 Days: No e-Cigarette/Vaping Use: Never Used Second Hand Smoke Exposure: No Use of substances other than those prescribed or required for medical reasons: No Advance Directives: No Advance Directives Information Provided: Yes Do you have a plan to hurt others: No Plan service: No Current occupational status: retired Current occupation: rt handed Cognitive needs: No Hearing needs: No Vision needs: Yes (Glasses) Physical Exam ED Vital Signs: Vital Signs - 24 hr 08/17/24 21:54 08/18/24 00:30 08/18/24 00:45 Temperature 98.2 F 98.0 F Pulse Rate 77 74 85 Respiratory Rate 18 19 Blood Pressure 165/68 H 132/56 L 132/58 L Pulse Oximetry 96 98 Oxygen Delivery Method Room Air Room Air 08/18/24 02:00 Temperature 98.3 F Pulse Rate 93 Respiratory Rate 19 Blood Pressure 147/62 H Pulse Oximetry 97 Oxygen Delivery Method Room Air BMI result Body Mass Index 41.8 Const Other: Alert well-appearing Orientation/consciousness: patient oriented x3 HENMT Other: Right side of lower left lip is still somewhat swollen, tongue is not swollen Resp Other: No stridor, no tachypnea, no wheezing lungs are clear Skin Other: Scattered urticaria Neuro General: patient oriented x3, gait normal, no focal motor deficits and CN's II- XI intact bilaterally Psych Other: Cooperative Course Reevaluation(s) Reevaluation #1: Much improved, urticaria resolving, angioedema of right-sided lip also resolving Time: 02:07 Medications Administered Discontinued Medications Generic Name Dose Route Start Last Admin Trade Name Freq PRN Reason Stop Dose Admin Diphenhydramine HCl 25 mg 08/18/24 00:19 08/18/24 00:37 Diphenhydramine Hcl 50 Mg/Ml Vial IVPUSH 08/18/24 00:20 25 mg ONCE ONE Administration Epinephrine 0.3 mg 08/18/24 00:19 08/18/24 00:30 Epinephrine 1 Mg/Ml Vial IM 08/18/24 00:20 0.3 mg STAT STA Administration Famotidine 20 mg 08/18/24 00:19 08/18/24 00:37 Famotidine/Pf 20 Mg/2 Ml Vial IVPUSH 08/18/24 00:20 20 mg ONCE ONE Administration Sodium Chloride 1,000 mls @ 999 mls/hr 08/18/24 00:30 08/18/24 00:37 Ns IV 08/18/24 01:30 999 mls/hr .Q1H1M KRISTIN Administration Methylprednisolone Sodium Succinate 125 mg 08/18/24 00:19 08/18/24 00:37 Methylprednisolone Sod Succ 125 Mg/2 Ml Vial IVPUSH 08/18/24 00:20 125 mg ONCE ONE Administration Medical Decision Making Medical Decision Making MDM Narrative: 64-year-old female with a history of obesity, asthma, hypertension, GERD who presents with urticaria. Patient states she was cleaning her outer patio furniture yesterday. Shortly thereafter she developed wheezing, diffuse urticaria and a sore throat. Patient also developed swelling of the lower lip. Patient took Benadryl, use her inhaler. The swelling of the lower lip has decreased, she no longer has a sore throat. The urticaria are still present and are migrating. Problem: Asthma History: Per patient I have considered the following differential diagnoses: Allergic reaction, anaphylaxis , angioedema Plan: Patient is still having transient angioedema, wheezing as resolved, still as urticaria. We will give epinephrine, Solu-Medrol, Benadryl fluid. Discharge Plan Discharge Clinical Impression: Allergic reaction, Urticaria, Angioedema Patient Disposition: Home, Self-Care Instructions: Urticaria (ED), Angioedema (ED), General Allergic Reaction (ED) Additional Instructions: You were treated for an allergic reaction. Take the steroid taper as directed. If you develop another similar reaction in the future, administer the epinephrine, then seek immediate medical attention. You can also use zpcv-dqy-exswshq Zyrtec, for the itching associated with the hives. Prescriptions: New methylprednisolone [Medrol (Igor)] 4 mg tablets,dose pack 4 mg PO QAM Qty: 21 0RF Rx Instructions: use per package instructions epinephrine 0.3 mg/0.3 mL auto-injector 0.3 mg IM Q10M PRN (Reason: anaphylaxis) Qty: 2 0RF Rx Instructions: for 2 doses No Action fluticasone furoate-vilanterol [Breo Ellipta] 100-25 mcg/dose blister with device 1 ea PO DAILY Qty: 180 3RF meloxicam 15 mg tablet 15 mg PO DAILY Qty: 30 0RF (DME) AUTO PAP 6-20 cm water Humidified Air See Rx Instructions .Route .MEDSUPPLY Qty: 1 0RF Rx Instructions: Sleep study done 04/15/2024 showing moderately severe AHI of 18 with nocturnal hypoxemia advised auto PAP mode 6-20 cm water. lisinopril 10 mg tablet 10 mg PO DAILY 90 Days Qty: 90 2RF nitrofurantoin monohyd/m-cryst [Macrobid] 100 mg capsule 100 mg PO Q12H 7 Days Qty: 14 0RF Rx Instructions: must administer with a meal/food omeprazole 20 mg capsule,delayed release(DR/EC) 20 mg PO DAILY Qty: 90 2RF Excedrin Migraine 250-250-65 mg tablet 2 tab PO Q6H PRN (Reason: Headache) gabapentin 100 mg capsule See Rx Instructions PO BEDTIME PRN Rx Instructions: 1-2 cap orally bedtime PRN; cyanocobalamin (vitamin B-12) 1,000 mcg capsule 1,000 mcg PO DAILY alprazolam 0.5 mg tablet 0.5 mg PO BEDTIME PRN (Reason: Anxiety) 30 Days Qty: 30 1RF Zepbound 2.5 mg/0.5 mL pen injector 2.5 mg subcut QWEEK Qty: 2 3RF Rx Instructions: for 4 weeks albuterol sulfate 90 mcg/actuation HFA aerosol inhaler 2 puff inhalation Q6H PRN (Reason: bronchospasm) Qty: 8.5 0RF Print Language: Sinhala
[2024-08-18 02:00] VITALS: BP 147/62; PULSE 93; RESP 19; TEMP 36.8; O2SAT 97
[2024-08-18 02:27] VITALS: BP 147/62; PULSE 93; RESP 19; TEMP 36.8; O2SAT 97
== END 2024-08-18 02:28 | disposition home or self-care (01) ==
PROVIDERS: Emergency Provider Emergency Medicine; PCP Internal Medicine
DX: T78.3XXA Angioneurotic edema, initial encounter (principal); T78.40XA Allergy, unspecified, initial encounter; X58.XXXA Exposure to other specified factors, initial encounter
CPT/HCPCS: 96361; 96372; 96374; 96375; 99284; J0171; J1200; J2919

== ENCOUNTER 2024-08-19 02:32 | Emergency (ER) | payer MEDICARE, SELFPAY ==
[2024-08-19 02:35] VITALS: BP 148/70; PULSE 107; RESP 18; TEMP 36.3; O2SAT 94; BMI 45.4
--- NOTE | 2024-08-19 05:50 | PC.NURSE ---
pt still waiting to be seen by ED provider at this time.
[2024-08-19 06:07] VITALS: BP 166/53; PULSE 83; RESP 18; TEMP 36.6; O2SAT 97
--- NOTE | 2024-08-19 06:08 | PC.NURSE ---
pt reports relief of itchiness/shaking from when she first came in.
--- NOTE | 2024-08-19 06:21 | ED.GENADULT ---
HPI - General Adult General Chief complaint: Allergic Reaction Stated complaint: hives Time Seen by Provider: 08/19/24 06:21 History of Present Illness ED Provider: Josef SIMON narrative: The patient is a 64-year-old woman who had come to the emergency room approximately 24 hours before this visit because she had experienced hives and wheezing. She was felt to have an allergic reaction. She was treated with the EpiPen, steroids, and antihistamines. She was prescribed an EpiPen at discharge. This evening the patient developed itchy hives after eating an egg salad sandwich. She then realized that she had eaten the same egg salad mix prior to the symptoms that prompted her 1st ER visit. She had originally attributed her yesterday's symptoms to an environmental exposure. However she had not considered that the egg salad sandwich she had eaten prior to her 1st ER visit might have been an allergen. The patient was very itchy tonight and used an EpiPen and return to the emergency room. She has had no shortness of breath on this occasion however. Related Data Home Medications ?Medication ?Instructions ?Recorded ?Confirmed qmlqkxb-snuvuaoqkpyeu-flbmjvyn 250 2 tab PO Q6H PRN Headache 03/14/20 07/09/24 mg-250 mg-65 mg tablet (Excedrin Migraine) cyanocobalamin (vitamin B-12) 1,000 mcg PO DAILY 07/03/23 07/09/24 1,000 mcg capsule gabapentin 100 mg capsule See Rx Instructions PO BEDTIME PRN 07/09/24 07/09/24 Previous Rx's ?Medication ?Instructions ?Recorded alprazolam 0.5 mg tablet 0.5 mg PO BEDTIME PRN Anxiety 30 07/03/23 days #30 tabs fluticasone furoate 100 1 ea PO DAILY #180 ea 02/01/24 mcg-vilanterol 25 mcg/dose inhalation powder (Breo Ellipta) meloxicam 15 mg tablet 15 mg PO DAILY #30 tabs 03/01/24 AUTO PAP 6-20 cm water Humidified #1 ea 04/21/24 Air lisinopril 10 mg tablet 10 mg PO DAILY 90 days #90 caps 05/29/24 albuterol sulfate 90 mcg/actuation 2 puff inhalation Q6H PRN 07/09/24 aerosol inhaler bronchospasm #8.5 grams nitrofurantoin 100 mg PO Q12H 7 days #14 caps 07/09/24 monohydrate/macrocrystals 100 mg capsule (Macrobid) tirzepatide (weight loss) 2.5 2.5 mg (0.5 mL) subcut QWEEK #2 mL 07/09/24 mg/0.5 mL subcutaneous pen injector (Zepbound) omeprazole 20 mg capsule,delayed 20 mg PO DAILY #90 caps 07/31/24 release epinephrine 0.3 mg/0.3 mL 0.3 mg (0.3 mL) IM Q10M PRN 08/18/24 injection, auto-injector anaphylaxis #2 ea methylprednisolone 4 mg tablets in 4 mg PO QAM #21 ea 08/18/24 a dose pack (Medrol (Igor)) epinephrine 0.3 mg/0.3 mL 0.3 mg (0.3 mL) IM Q10M PRN 08/19/24 injection, auto-injector hypersensitivity reaction #2 ea Allergies Allergy/AdvReac Type Severity Reaction Status Date / Time codeine Allergy Unknown Unknown Verified 08/19/24 02:38 latex [Latex] Allergy Unknown BURNING Verified 08/19/24 02:38 oxycodone [Oxycodone] Allergy Unknown FAINT/TACHY Verified 08/19/24 02:38 CARDIA tramadol AdvReac Intermediate ORELLANA Verified 08/19/24 02:38 Review of Systems Review of Systems: Yes all other systems are reviewed and are negative [facility] Past Medical History Medical History Asthma, persistent controlled Pre-operative clearance Knee pain, right Iron deficiency anemia Thrombophlebitis Hip pain, left COVID-19 virus infection Synovial cyst of popliteal space [Neal], left knee Hiatal hernia Migraine Peripheral vascular disease Hypertension Obesity Vitamin D deficiency Hypercholesterolemia GERD (gastroesophageal reflux disease) Asthma Peripheral neuropathy Surgical History History of esophagogastroduodenoscopy (EGD) Hx of colonoscopy History of vein stripping History of carpal tunnel release History of appendectomy History of section Family History Family History (Updated 07/09/24 @ 10:37 by Vern Saul MD) Father Lung cancer Mother Lung cancer Paternal Grandfather Lung cancer Paternal Uncle Lung cancer Myocardial infarct Sister Pancreatic cancer Social History Social History Household Members: Spouse Housing: House Are you a primary child care specialist to a significant other at home: No Do you presently have visiting nurse or other home services: No Alcohol intake: current Alcohol intake frequency: holidays/special occasions only Alcohol type: beer and wine Comment: 2 days week 2 drinks Patient Tobacco Use Status: Former Tobacco user Tobacco use type: Cigarette Years Smoked: quit in the 70's Smoked in Last 30 Days: No e-Cigarette/Vaping Use: Never Used Second Hand Smoke Exposure: No Use of substances other than those prescribed or required for medical reasons: No Advance Directives: No Advance Directives Information Provided: Yes Do you have a plan to hurt others: No Plan service: No Current occupational status: retired Current occupation: rt handed Cognitive needs: No Hearing needs: No Vision needs: Yes (Glasses) Physical Exam ED Vital Signs: Vital Signs - 24 hr 08/19/24 02:35 08/19/24 06:07 08/19/24 06:46 Temperature 97.3 F 97.9 F Pulse Rate 107 H 83 82 Respiratory Rate 18 18 Blood Pressure 148/70 H 166/53 H 166/75 H Pulse Oximetry 94 97 Oxygen Delivery Method Room Air Room Air 08/19/24 07:59 Temperature 97.7 F Pulse Rate 85 Respiratory Rate 14 Blood Pressure 140/60 H Pulse Oximetry 93 Oxygen Delivery Method Room Air BMI result Body Mass Index 45.4 Const Other: The patient is awake and alert, pleasant cooperative. She seemed mildly itchy but not in any distress. HENMT Other: Face is symmetrical, airway is clear, no facial or airway swelling. Eyes General: appearance normal, both eyes and all related structures Neck Other: No stridor, good range of motion of the neck Resp Other: No wheezes Effort & Inspection: normal respiratory effort Auscultation: clear to auscultation bilaterally Cardio Jugular venous distension: no JVD Rate: regular rate Rhythm: regular rhythm Heart sounds: S1 normal heart sound present and S2 normal heart sound present GI Other: Abdomen is soft and nontender Skin Other: Fairly diffuse urticaria scattered throughout the body. Neuro Other: The patient is awake and alert with a normal mental status. Cranial nerves are grossly intact. She moves her extremities normally and appropriately. She seems grossly neurologically intact. Extrem Other: No peripheral edema Medications Administered Discontinued Medications Generic Name Dose Route Start Last Admin Trade Name Ronda PRN Reason Stop Dose Admin Epinephrine 0.3 mg 08/19/24 06:28 08/19/24 06:46 Epinephrine 1 Mg/Ml Vial IM 08/19/24 06:29 0.3 mg STAT STA Administration Famotidine 20 mg 08/19/24 06:28 08/19/24 06:46 Famotidine 20 Mg Tablet PO 08/19/24 06:29 20 mg ONCE ONE Administration Loratadine 10 mg 08/19/24 06:28 08/19/24 06:46 Loratadine 10 Mg Tablet PO 08/19/24 06:29 10 mg ONCE ONE Administration Medical Decision Making Medical Decision Making [facility] Narrative: The patient presents with urticaria. She was here 24 hours previously with the allergic symptoms and was treated with a an EpiPen, steroids, and antihistamines. At that time it was thought that she has had some kind of environmental trigger for an allergy. Today she returns after having eaten an egg salad sandwich. She now realizes that she had eaten and egg salad sandwich prior to her previous allergic symptoms. She now thinks that the egg salad was likely the triggering allergen for both of these episodes. She has no respiratory symptoms today. Given her degree of urticaria and itchiness she was treated with a an EpiPen with improvement in her symptoms. She was also given oral loratadine and famotidine. She is currently on a course of a Medrol Dosepak. The patient improved following the EpiPen. I think she may be discharged with instructions to avoid eating the egg salad, eggs in general, and any ingredient in the egg salad, until she follows up with an strategic solutions consultant for allergy testing. She was given a prescription for an additional EpiPen. Discharge Plan Discharge Clinical Impression: Urticaria Patient Disposition: Home, Self-Care Additional Instructions: You seemed to have had another outbreak of hives as an allergic reaction. At this point it seems as though the egg salad sandwich you ate might be responsible for these outbreaks. Please continue your course of steroids. Please avoid all the ingredients of your egg salad sandwich. Drink a lot of fluids. Follow up with your regular doctor and discuss a referral to an strategic solutions consultant. One good allergy practice in his area is [facility] Prescriptions: New epinephrine 0.3 mg/0.3 mL auto-injector 0.3 mg IM Q10M PRN (Reason: hypersensitivity reaction) Qty: 2 0RF Rx Instructions: for 2 doses No Action fluticasone furoate-vilanterol [Breo Ellipta] 100-25 mcg/dose blister with device 1 ea PO DAILY Qty: 180 3RF meloxicam 15 mg tablet 15 mg PO DAILY Qty: 30 0RF (DME) AUTO PAP 6-20 cm water Humidified Air See Rx Instructions .Route .MEDSUPPLY Qty: 1 0RF Rx Instructions: Sleep study done 04/15/2024 showing moderately severe AHI of 18 with nocturnal hypoxemia advised auto PAP mode 6-20 cm water. lisinopril 10 mg tablet 10 mg PO DAILY 90 Days Qty: 90 2RF nitrofurantoin monohyd/m-cryst [Macrobid] 100 mg capsule 100 mg PO Q12H 7 Days Qty: 14 0RF Rx Instructions: must administer with a meal/food omeprazole 20 mg capsule,delayed release(DR/EC) 20 mg PO DAILY Qty: 90 2RF methylprednisolone [Medrol (Igor)] 4 mg tablets,dose pack 4 mg PO QAM Qty: 21 0RF Rx Instructions: use per package instructions epinephrine 0.3 mg/0.3 mL auto-injector 0.3 mg IM Q10M PRN (Reason: anaphylaxis) Qty: 2 0RF Rx Instructions: for 2 doses Excedrin Migraine 250-250-65 mg tablet 2 tab PO Q6H PRN (Reason: Headache) gabapentin 100 mg capsule See Rx Instructions PO BEDTIME PRN Rx Instructions: 1-2 cap orally bedtime PRN; cyanocobalamin (vitamin B-12) 1,000 mcg capsule 1,000 mcg PO DAILY alprazolam 0.5 mg tablet 0.5 mg PO BEDTIME PRN (Reason: Anxiety) 30 Days Qty: 30 1RF Zepbound 2.5 mg/0.5 mL pen injector 2.5 mg subcut QWEEK Qty: 2 3RF Rx Instructions: for 4 weeks albuterol sulfate 90 mcg/actuation HFA aerosol inhaler 2 puff inhalation Q6H PRN (Reason: bronchospasm) Qty: 8.5 0RF Referrals: Marol Dawn DO [Physician] - Po,Lorenver O, MD [Primary Care Provider] - Discharge Date/Time: 08/19/24 08:00 Print Language: Fijian
[2024-08-19 06:46] VITALS: BP 166/75; PULSE 82
[2024-08-19] MEDS: EPINEPHrine 1 MG/ML VIAL 0.3 MG IM (06:46)
[2024-08-19] MEDS: Famotidine 20 MG TABLET PO (06:46)
[2024-08-19] MEDS: Loratadine 10 MG TABLET PO (06:46)
[2024-08-19 07:59] VITALS: BP 140/60; PULSE 85; RESP 14; TEMP 36.5; O2SAT 93
== END 2024-08-19 08:00 | disposition home or self-care (01) ==
PROVIDERS: Emergency Provider Emergency Medicine; PCP Internal Medicine
DX: L50.9 Urticaria, unspecified (principal)
CPT/HCPCS: 96372; 99284; J0171

== ENCOUNTER 2024-08-27 09:14 | Outpatient (REF) | payer MEDICARE, SELFPAY ==
--- NOTE | ~2024-08-27 | MM_ITS ---
EXAMINATION: MM SCREENING DIGITAL BREAST TOMOSYNTHESIS, BILATERAL CLINICAL INFORMATION: Screening. Asymptomatic. COMPARISON: Mammography: Comparison is made with available priors TECHNIQUE: Digital breast mammography with tomosynthesis is performed in both the craniocaudal and mediolateral oblique views along with computer-aided detection (CAD). FINDINGS: There are scattered areas of fibroglandular density (ACR BI-RADS breast composition Category b). Left marker clip. There are no significant masses, abnormal calcifications, or other abnormalities. MM/MM tomosynthesis screening BI IMPRESSION: No mammographic evidence of malignancy. ASSESSMENT: BI-RADS BI-RADS 2 - Benign Findings RECOMMENDATION: Routine annual mammography screening. 1 year F/U This examination should not preclude the clinical evaluation of a suspicious palpable abnormality. This patient's information was entered into a reminder system with a target due date for their next mammogram. Electronically signed by: Whitney Cedeno DO 09/04/2024 08:52 PM EDT
--- NOTE | ~2024-08-27 | MM_ITS ---
EXAMINATION: DXA BONE DENSITY AXIAL HISTORY: M81.0 - Age-related osteoporosis without current pathological fracture TECHNIQUE: [id number] Dual energy absorptiometry (DEXA) of the lumbar spine, total left hip, and femoral neck was performed. COMPARISON: Comparison is made with the prior examination dated 05/18/2019. FINDINGS: The bone mineral density of the lumbar spine is 1.114 with a T-score of -0.5, and a Z-score of -0.1. This is indicative of normal bone mineral density. This represents a BMD change of 2.7% compared to the prior exam. This is statistically significant. The bone mineral density of the left total hip is 0.936 with a T-score of -0.6, and a Z-score of -0.1. This is indicative of normal bone mineral density. This represents a BMD change of 1.3% compared to the prior exam. This is not statistically significant. The bone mineral density of the left femoral neck is 0.883 with a T-score of -1.1, and a Z-score of -0.3. This is indicative of osteopenia. This represents a BMD change of 3.9% compared to the prior exam. FRACTURE RISK: The FRAX index suggests a ten year probability of major osteoporotic fracture of 11.4%, and of hip fracture 1.0%. MM/XR DEXA axial skeleton IMPRESSION: Based on bone mineral density, and according to World Health Organization (WHO) criteria, the diagnosis is consistent with osteopenia. All bone density values are in grams per centimeter squared (g/cm2). Statistically, 68% of repeat scans fall within 1 SD (+/- 0.010 g/cm2 for AP spine L1-L4) and 1 SD (+/- 0.012 g/cm2 for femur total) FRAX is a trademark of the [employer]'s [place] for Metabolic Bone Disease, a World Health Organization (WHO) Collaborating Center. Electronically signed by: Rolando Dyer MD 08/27/2024 10:03 AM EDT
--- OUTSIDE RECORDS SUMMARY | 2024-08-27 09:26 | XMS_ITS | Data Portability ---
Author Organization [facility], [address] Address [address] [place] [address] Care Team Providers Care Oral And Maxillofacial Surgeon Name Role Phone [facility] Primary Care Provider [phone] Assessment No assessment recorded. Plan of Treatment Reminders Order Date Submit Date Provider Last Modified By Organization Details Last Modified Time Details Appointments None recorded. Lab None recorded. Referral None recorded. Procedures None recorded. Surgeries None recorded. Imaging None recorded. Medication Orders naproxen 500 mg tablet 2022 023 [facility], [address] [place] [address], [id number], 3 15:08:30 cyclobenzap rine 10 mg tablet 2022 023 [facility], [address] [place], [address], 3 15:08:30 Patient TargetsNo targets recorded. Patient Instructions Encounter Date Encounter Id Patient Instructions Last Modified By Organization Details Last Modified Time 06/17/2022 [id number] shoulder pain: care instructions Not available 06/17/2022 [...] your doctor if you can take an ymmb-fhp-gqalvmc medicine. Do not take two or more [...] and Address Organization Details Recorded Time Neuropathy [id number] Active 023 MIYA KELLY null, [place] - [facility] 3 14:36:09 Asthma 880635946 Active 023 MIYA LUPICA null, [place] - [facility] 3 14:36:18 Acid reflux 674294365 Active 023 MIYA LUPICA null, PA - [...] ed [facility] 3 14:33:50 [id number] Latex (substanc e) environme nt,medica tion other Not available Not available 06/17/2022 [id number] SNOMED numbi ng effec t KAY [...] Available Not Available No t Available vitamin K24-rjysj acid active Not Available Not Available Not [...] Updated DateTime 3 154.94 cm 41.6 kg/m2 80882.3 2 g 97 [degF] 98 % 98 % 71 /min 16 /min 126 mm[Hg] 80 mm[Hg] MIYA KELLY [place] - [facility] 14:40:49 Social History Question Answer Notes LastModified by Organizat ion Details LastModified Time Tobacco Smoking Status Former Smoker MIYA KELLY null, [place] - [facility] 06/17/2022 14:37:40 What Is Your Level Of Alcohol Consumption? Occasional [email or web address] Information not available 06/17/2022 Do You Use Any Illicit Or Recreational Drugs? No Information not available 06/17/2022 Have You Recently Traveled Abroad? No [email or web address] Information not available 06/17/2022 Sex: Unknown Functional Status None recorded. Mental Status None recorded. Family History Relationship Description Onset Age of this Age Resolved Age Notes LastModified by Organization Details LastModified Time Unspecified Relation Malignant tumor of lung [email or web address] Not available 2022 14:36:58 Unspecified Relation Malignant neoplastic disease Not available 2022 14:37:04 Medical History No medical history recorded. Gynecological HistoryNo gynecological history recorded. Obstetrics History GPAL:G 0 P 0 0 0 0 Past Encounters Encounter ID Performer Location Encounter Start Date Encounter Closed Date Diagnosis/Indication Diagnosis SNOMED-CT Code Diagnosis ICD10 Code Diagnosis Note [id number] [address] [place] [address] 04/20/2017 10:42:53 04/20/2017 12:13:44 [id number] [address] [place] [address] 11/17/2016 14:16:03 11/17/2016 14:42:52 [id number] [address] [place] [address] 05/10/2017 11:25:47 05/10/2017 12:21:42 [id number] Dipesh Cummings NP [address] [place] [address] 06/17/2022 10:47:45 06/17/2022 15:11:09 Pain of right shoulder joint [id number] M25.511 Health Concerns Section Related Observation LastModified by Organization Detai ls LastModified Time None Recorded Concern Status LastModified by Organization Details LastModified Time None Recorded Advance Directives Directive None Recorded Payers Encounter Date Sequence Insurance Name Policy Number Policy Flood Covered Member ID Flood Member ID Guarantor Name 11/17/2016 1 [facility] [id number] Bibiana A A Achorn [id number] Bibiana A Achorn 04/20/2017 1 [facility] [id number] Bibiana A A Achorn [id number] Bibiana A Achorn 05/10/2017 1 [facility] [id number] Bibiana A A Achorn [id number] Bibiana A Achorn 06/17/2022 1 [facility] [id number] Bibiana A A Achorn [id number] Bibiana A Achorn Notes Date Note Type [...] NP [address] [place], [address], [place] - [facility] 06/17/2022 15:08:51 OBGyn Episode No OBEpisode recorded.
== END 2024-08-27 09:15 | disposition home or self-care (01) ==
LOC: HO.MAMMO 09:14
PROVIDERS: PCP Internal Medicine; Visit Provider Internal Medicine
DX: Z12.31 Encounter for screening mammogram for malignant neoplasm of breast (principal); M81.0 Age-related osteoporosis without current pathological fracture
CPT/HCPCS: 77063; 77067; 77080; 99212

== ENCOUNTER → 2024-08-27 10:00 | Outpatient (BNV) | payer MEDICARE, SELFPAY | PROVIDERS: PCP Internal Medicine; Visit Provider Radiology Diagnostic Radiology | DX: E28.39 Other primary ovarian failure (principal) | CPT/HCPCS: 77080 ==

== ENCOUNTER 2024-08-27 15:22 | Outpatient (AMB) | payer MEDICARE, SELFPAY ==
--- NOTE | 2024-08-27 15:29 | A.OFFPC_ITS ---
Vital Signs 08/27/24 15:30 Height 5 ft Weight 231 lb 8 oz BMI 45.2 BP 120/80 Blood Pressure Location Lt brachial Position Sitting Pulse 73 Pulse Source Pulse Oximeter Temp 97.1 F Temp Source Temporal Artery Scan Pulse Oximetry (%) 97 Oxygen Delivery Method Room Air Intake Visit Reasons: [facility] 08/19 Hives Intake Note: Patient is here to follow-up after a visit the emergency department at [facility] on 08/17, 08/18. Antique Jewelry Repairer Required: No Foreclosure Field Inspector: Not Required per policy Accompanied by: Self / Same As Patient Allergies codeine Allergy (Unknown, Verified 08/27/24 15:47) Unknown latex [Latex] Allergy (Unknown, Verified 08/27/24 15:47) BURNING oxycodone [Oxycodone] Allergy (Unknown, Verified 08/27/24 15:47) FAINT/TACHYCARDIA tramadol Adverse Reaction (Intermediate, Verified 08/27/24 15:47) ORELLANA Medication List - Last Reconciled 08/27/24 by Thelma Callahan PA-C albuterol sulfate 90 mcg/actuation 2 puffs inhalation Q6H PRN alprazolam 0.5 mg PO BEDTIME PRN 30 days nvksujj-qvmohgbzblwsw-sxqtytpf 250-250-65 mg (Excedrin Migraine) 2 tabs PO Q6H PRN [AUTO PAP 6-20 cm water Humidified Air Sleep study done 04/15/2024 showing moderately severe AHI of 18 with nocturnal hypoxemia advised auto PAP mode 6-20 cm water.] cyanocobalamin (vitamin B-12) 1,000 mcg PO DAILY epinephrine 0.3 mg (0.3 mL) IM Q10M PRN epinephrine 0.3 mg (0.3 mL) IM Q10M PRN fluticasone furoate-vilanterol 100-25 mcg/dose (Breo Ellipta) 1 ea PO DAILY gabapentin 1-2 cap orally bedtime PRN; lisinopril 10 mg PO DAILY 90 days meloxicam 15 mg PO DAILY omeprazole 20 mg PO DAILY tirzepatide (weight loss) (Zepbound) 2.5 mg (0.5 mL) subcut QWEEK Tobacco use date assessed: 08/27/24 Fall risk assessment: No Falls in past year Last assessed Fall Risk: 08/27/24 Dental Screening Dental Screen Date: 08/27/24 Did you have a dental visit in the last 12 months?: Yes Did you have a dental problem in the last 6 months where you did not have access to dental care?: No Was dental information given to patient?: Patient has dentist [facility] 08/19 Hives HPI Details 64-year-old female with past medical his tory of impaired glucose tolerance, hypertension, GERD, asthma, generalized anxiety disorder last seen 07/2024 coming in for hospital discharge follow up.?In review of the notes, patient was seen see ED 08/18/2024 found to have urticaria continue on steroids and avoid allergy inducing foods. Presenting with urticaria and potential allergic reaction. Initial symptoms sta rted with itching and redness of the hands after patio cleaning with Windex. Raised hives appeared, with the first asthma attack occurring, possibly due to exposure to particulates. Symptoms worsened with widespread hives, notably leg, breast, and lip involvement, necessitating emergency treatments including epinephrine, IV medications, prednisone, and EpiPen use. Patient's denies any new detergents, soaps, foods or medication changes. Her symptoms have since resolved. [facility] Medical History Asthma, persistent controlled Pre-operative clearance Knee pain, right Iron deficiency anemia Thrombophlebitis Hip pain, left COVID-19 virus infection Synovial cyst of popliteal space [Neal], left knee Hiatal hernia Migraine Peripheral vascular disease Hypertension Obesity Vitamin D deficiency Hypercholesterolemia GERD (gastroesophageal reflux disease) Asthma Peripheral neuropathy Surgical History History of esophagogastroduodenoscopy (EGD) Hx of colonoscopy History of vein stripping History of carpal tunnel release History of appendectomy History of section Family History Father Lung cancer Mother Lung cancer Paternal Grandfather Lung cancer Paternal Uncle Lung cancer Myocardial infarct Sister Pancreatic cancer Social History Household Members: Spouse Housing: House Are you a primary critical care cns to a significant other at home: No Do you presently have visiting nurse or other home services: No Alcohol intake: current Alcohol intake frequency: holidays/special occasions only Alcohol type: beer and wine Comment: 2 days week 2 drinks Patient Tobacco Use Status: Former Tobacco user Tobacco use type: Cigarette Years Smoked: quit in the 70's e-Cigarette/Vaping Use: Never Used Second Hand Smoke Exposure: Yes service: No Current occupational status: retired Current occupation: rt handed Cognitive needs: No Hearing needs: No Vision needs: Yes (Glasses) Questionnaire PHQ-9 Over the last 2 weeks, how often have you been bothered by any of the following problems? 1. Little interest or pleasure in doing things: not at all 2. Feeling down, depressed, or hopeless: not at all 3. Trouble falling or staying asleep, or sleeping too much: not at all 4. Feeling tired or having little energy: not at all 5. Poor appetite or overeating: not at all 6. Feeling bad about yourself - or that you are a failure or have let yourself or your family down: not at all 7. Trouble concentrating on things, such as reading the newspaper or watching television: not at all 8. Moving or speaking so slowly that other people could have noticed. Or the opposite - being so fidgety or restless that you have been moving around a lot more than usual: not at all 9. Thoughts that you would be better off or of hurting yourself in some way: not at all Total score: 0 Depression Screening Interpretation: Negative Depression Screening Done: Yes Source: Developed by Drs. Rolando Dominguez, Terri Ca, Kwame Gonzalez and colleagues, with an educational stacy from [employer]. Thrive Questionnaire Date Thrive assessed: 08/27/24 I am a: Patient What is your living situation today?: I have a steady place to live Within the past 12 months, did the food you bought not last and you didn't have the money to get more?: Never true Within the past 12 months, did you worry whether your food would run out before you got money to buy more?: Never true Do you have trouble paying for medicines?: No Do you have trouble getting transportation to medical appointments?: No Do you have trouble paying your heating and electricity bill?: No Do you have trouble taking care of your child, family member or friend?: No Do you have trouble with day-to-day activities such as bathing, preparing meals, shopping, managing finances, etc.?: No Are you currently unemployed and looking for a job?: No Are you interested in more education?: No Please select the resources that you would like help with: None Currently or been in a relationship where the following occur: I choose not to answer THRIVE Score: 0 AUDIT C Alcohol Use Questionnaire (AUDIT-C) 1. How often do you have a drink containing alcohol?: 2-4 times a month Total Score: 2 BJORN-7 AMB Questionnaire BJORN-7 Date BJORN - 7 assessed: 08/27/24 Feeling nervous, anxious, or on edge: 0 = Not at all Not being able to stop or control worryin = Not at all Worrying too much about different things: 0 = Not at all Trouble relaxin = Not at all Being so restless that it is hard to sit still: 0 = Not at all Becoming easily annoyed or irritable: 0 = Not at all Feeling afraid as if something awful might happen: 0 = Not at all Total BJORN-7 score (0-4 normal; 5-9 mild; 10-14 moderate; 15-21 severe): 0 Source: Developed by Drs. Rolando Dominguez, Terri Ca, Kwame Gonzalez and colleagues, with an educational stacy from [employer]. Review of Systems Const Denies body aches, Denies chills and Denies fever(s) Eyes Reports no additional complaints ENT Denies dizziness Card Denies chest pain and Denies dyspnea Resp Denies cough and Denies dyspnea GI Reports no additional complaints Musc Reports no additional complaints Skin/Breast Reports system reviewed and no additional complaints, except as documented Neuro Denies dizziness Psych Reports no additional complaints Physical exam (Primary Care) Vital Signs: Last Vital Signs Temp 97.1 F 08/27/24 15:30 Pulse 73 08/27/24 15:30 BP 120/80 08/27/24 15:30 Pulse Ox 97 08/27/24 15:30 Oxygen Delivery Method Room Air 08/27/24 15:30 BMI result Body Mass Index 45.2 Tobacco/Smoking Status: Tobacco use Status Tobacco use date assessed 08/27/24 08/27/24 15:35 Patient Tobacco Use Status Former Tobacco user 08/27/24 15:35 Tobacco use type Cigarette 08/27/24 15:35 e-Cigarette/Vaping Use Never Used 08/27/24 15:35 PHQ-9: PHQ-9 Score PHQ-9: Total score 0 08/27/24 15:35 Depression Screening Interpretation: Negative Thrive Assessment: Date of Thrive Assessment Date Thrive assessed 08/27/24 08/27/24 15:35 Currently or been in a relationship where the following occur: I choose not to answer Const General: cooperative, healthy appearing, comfortable and no acute distress Orientation/consciousness: patient oriented x3 HENMT Head: Yes normocephalic Ears: hearing grossly normal bilaterally General nose exam: Normal external nose present Eyes General: appearance normal, both eyes and all related structures Conjunctivae: conjunctivae normal Neck Neck: Yes full ROM and Yes no lymphadenopathy Resp Effort & Inspection: normal respiratory effort Auscultation: clear to auscultation bilaterally, no crackles, no rales, no rhonchi and no wheezes Cardio Rate: regular rate Rhythm: regular rhythm Skin General skin exam: no rashes or lesions noted Neuro General: patient oriented x3 Gait exam (Neuro): Normal gait present Extrem General: Yes normal to inspection, Yes full ROM and No edema Psych Affect: normal affect Attitude: cooperative Insight: Good insight present (Psych) Judgement: Good judgement present (Psych) Coding Level of Care Code Est Pt Level 3 (33114) Diagnoses Impaired glucose tolerance R73.02 Morbid obesity E66.01 Essential hypertension I10 Hypertension type: essential hypertension Urticaria L50.9 Assessment & Plan Assessment & Plan (1) Impaired glucose tolerance: Code(s): R73.02 - Impaired glucose tolerance (oral) Category: Medical Plan: Decrease the amount of carbohydrates such as pasta, bread, rice, and potatoes and limit the amount of sweets. Although fruits are generally healthy they should be eaten in moderation as they are still high in sugar. (2) Morbid obesity: Code(s): E66.01 - Morbid (severe) obesity due to excess calories Category: Medical Plan: Healthy diet and regular exercise is encouraged. (3) Hypertension: Code(s): I10 - Essential (primary) hypertension Category: Medical Qualifiers: Hypertension type: essential hypertension Qualified Code(s): I10 - Essential (primary) hypertension Plan: Continue on current blood pressure medication. Avoid salt intake and encourage healthy diet and regular exercise. (4) Urticaria: Code(s): L50.9 - Urticaria, unspecified Category: Medical Plan: Patient coming in for follow up on urticaria. She does have the EpiPen as prescribed by the ED. plan to refer to hoop punch and coiler operator for further evaluation. Advised to avoid trying new foods or using new cleansers until she can have evaluation. Symptoms have resolved at this time. Reviewed red flag symptoms and when to present for re-evaluation. Plan Urticaria and possible allergic reaction are potentially related to environmental exposure, possibly boric acid or food allergens. Allergy tests are advised to pinpoint the allergens. She should continue to carry and use the EpiPen as needed, and her symptomatic relief should also involve the reported use of prednisone. I advised an immediate response to any future recurring symptoms, especially involving respiratory difficulty, and encouraged follow-up with an hoop punch and coiler operator for sustained management. This note was constructed using voice recognition software. While every effort has been made to ensure accuracy and flow worker, still areas may have been included sometimes these areas may affect the content or meeting of the given symptoms. Total time spent caring for the patient today was 20 minutes. This includes time spent before the visit reviewing the chart, time spent during the visit, and time spent after the visit and documentation. Patient was informed and verbally consented to the use of an ambient scribe for clinic note documentation during this visit. Orders: Referrals Allergy & Immunology Referral L50.9 - Urticaria, unspecified
[2024-08-27 15:30] VITALS: BP 120/80; PULSE 73; TEMP 36.2; O2SAT 97; BMI 45.2
--- OUTSIDE RECORDS SUMMARY | 2024-08-27 15:54 | XMS_ITS | Clinical Summary ---
Author Organization [employer] Address [address] [place] [address] [address] [place] [address] Care Team Providers Care Finger Buffs Assembler Name Role Phone Unavailable Primary Care Provider [...] age to complete this topic Insurance MEDICARE [facility] MED [facility]ARE
== END 2024-08-27 16:08 | disposition home or self-care (01) ==
LOC: HO.HMCH 15:23
PROVIDERS: PCP Internal Medicine
DX: R73.02 Impaired glucose tolerance (oral) (principal); E66.01 Morbid (severe) obesity due to excess calories; Z68.42 Body mass index [BMI] 45.0-49.9, adult; I10 Essential (primary) hypertension; L50.9 Urticaria, unspecified

== ENCOUNTER 2024-09-21 06:49 | Outpatient (REF) | payer MEDICARE, SELFPAY ==
--- OUTSIDE RECORDS SUMMARY | 2024-09-21 06:50 | XMS_ITS | Data Portability ---
Author Organization [facility], [address] Address [address] [place] [address] Care Team Providers Care Weight Recorder Name Role Phone [facility] Primary Care Provider Assessment No assessment recorded. Plan of Treatment Reminders Order Date Submit Date Provider Last Modified By Organization Details Last Modified Time Details Appointments None recorded. Lab None recorded. Referral None recorded. Procedures None recorded. Surgeries None recorded. Imaging None recorded. Medication Orders naproxen 500 mg tablet 2022 023 [facility], [address] [place] [address], [address], 3 15:08:30 cyclobenzap rine 10 mg tablet 2022 023 [facility], [address] [place], [address], 3 15:08:30 Patient TargetsNo targets recorded. Patient Instructions Encounter Date Encounter Id Patient Instructions Last Modified By Organization Details Last Modified Time 06/17/2022 [id number] shoulder pain: care instructions Not available 06/17/2022 [...] your doctor if you can take an whmi-rhy-eanoxai medicine. Do not take two or more [...] and Address Organization Details Recorded Time Neuropathy 054614496 Active 023 MIYA KELLY null, [place] - [facility] 3 14:36:09 Asthma 954419212 Active 023 MIYA LUPICA null, PA - [facility] 3 14:36:18 Acid reflux 335589992 Active 023 MIYA LUPICA null, PA - [...] ed KAY Boykin [facility] 3 14:33:50 [id number] Latex (substanc e) environme nt,medica tion other Not available Not available 06/17/2022 [id number] SNOMED numbi ng effec t KAY [...] Available Not Available No t Available vitamin G19-vwzho acid active Not Available Not Available Not [...] Updated DateTime 3 154.94 cm 41.6 kg/m2 96684.3 2 g 97 [degF] 98 % 98 % 71 /min 16 /min 126 mm[Hg] 80 mm[Hg] MIYA KELLY PA - [facility] 3 14:40:49 Social History Question Answer Notes LastModified by [employer] [facility] Details LastModified Time Tobacco Smoking Status Former Smoker MIYA KELLY null, [place] - [facility] 06/17/2022 14:37:40 Have You Recently Traveled Abroad? No [email or web address] Information not available 06/17/2022 Sex: Unknown Functional Status Question Answer Note LastModified by Organizat ion Details LastModified Time Do you use any illicit or recreational drugs? No [email or web address] Information not available 06/17/2022 What is your level of alcohol consumption? Occasional [email or web address] Information not available 06/17/2022 Mental Status None recorded. Family History Relationship Description Onset Age of this Age Resolved Age Notes LastModified by Organization Details LastModified Time Unspecified Relation Malignant neoplasm of lung [email or web address] Not available 2022 14:36:58 Unspecified Relation Malignant neoplastic disease [email or web address] Not available 2022 14:37:04 Medical History No medical history recorded. Gynecological HistoryNo gynecological history recorded. Obstetrics History GPAL:G 0 P 0 0 0 0 Past Encounters Encounter ID Performer Location Encounter Start Date Encounter Closed Date Diagnosis/Indication Diagnosis SNOMED-CT Code Diagnosis ICD10 Code Diagnosis Note [id number] [facility] [address] [place] [address] 04/20/2017 10:42:53 04/20/2017 12:13:44 [id number] [address] [address] [place] [address] 11/17/2016 14:16:03 11/17/2016 14:42:52 [id number] [address] [address] [place] [address] 05/10/2017 11:25:47 05/10/2017 12:21:42 [id number] Dipesh Cummings NP [address] [address] [place] [address] 06/17/2022 10:47:45 06/17/2022 15:11:09 Pain of right shoulder joint [id number] 4046311 M25.511 Health Concerns Section Related Observation LastModified by Organization Detai ls LastModified Time None Recorded Concern Status LastModified by Organization Details LastModified Time None Recorded Advance Directives Directive None Recorded Payers Insurance Date Sequence Insurance Name Policy Number Policy Flood Covered Member ID Flood Member ID Guarantor Name 06/17/2022 1 [facility] [id number] Bibiana Connell [id number] Bibiana Connell Notes Date Note Type Note Provider Name [...] TreatmentInjections Prior Imaging:none Dipesh Cummings NP [address] [place], [address], [place] - [facility] 06/17/2022 15:08:51 OBGyn Episode No OBEpisode recorded.
--- OUTSIDE RECORDS SUMMARY | 2024-09-21 06:50 | XMS_ITS | Clinical Summary ---
Author Organization [employer] Address [address] [place] [address] [address] [place] [address] Care Team Providers Care Sap Functional Analyst Name Role Phone Unavailable Primary Care Provider Unavailabl e Immunizations Immunization Administration Dates Next Due Influenza, IIV3, injectable [...] patient's age to complete this topic Meningococcal B Vaccine Aged Out No l onger eligible based on patient's age to complete this topic Meningococcal Vaccine Aged Out No gucci aldair eligible based on patient's age to complete this topic RSV under 20 months Aged Out No longe r eligible based on patient's age to complete this topic Rotavirus Vaccines Aged Out No longer eligible based on patient's age to complete this topic Insurance [place] [address] [place] [id number] [facility] MEDEX CARE
--- OUTSIDE RECORDS SUMMARY | 2024-09-21 06:50 | XMS_ITS | Patient Health Record ---
Author Organization [facility] Address [address] [place] [address] Care Team Providers Care Radio Antenna Installer Name Role Phone Po Vern CABRERA Primary Care Provider Rolando Coughlin [phone] Allergies Allergen (clinical drug ingredient) Drug/Non Drug [...] Status Risk Notes Problem Iron deficiency anemia (92275801) Iron deficiency anemia (D50.9) Active confirmed Problem Gastric polyp (45978923) Gastric polyp (K31.7) Active confirmed Problem 65047586 Iron deficiency anemia, unspecified iron deficiency anemia type (D50.9) Active confirmed Problem Esophageal reflux finding (267029566) Gastroesophageal reflux (K21.9) Active confirmed Problem Diverticulosis of colon (389817009) Diverticulosis of colon (K57.30) Active confirmed Problem 044089487 Gastroesophageal reflux disease, unspecified whether esophagitis present [...] Insured Coverage Start Date Coverage End Date [facility] [address] [place] [phone] [id number] KASIE MONTEIRO Self - patient is the insured Medical (General) History Medical History History ICD Code Colonoscopy 07-05-2002 was neg ative; colonoscopy in 10/2011 was neg. except for a hyperplastic polyp Migraines Anxiety Denies PA,DM,CVA,Lung disease,renal dise ase GERD-EGD 10/2011 was neg. exc ept for a small HH--no Garcia's nor esophagitis; duodenal biopsies were normal Hypertension Asthma COVID in 03/2020 Surgical History Surgery Date(Month/Year) C-sections (4) appy vein stripping hand operation
[2024-09-21 10:25] LABS: MANUAL DIFF FLAG NO
[2024-09-21 10:30] LABS: Basophils Absolute Auto 0.1 X10*3/uL (0.0-0.2); Basophils Percent Auto 1.1 % (0-2); Eosinophils Absolute Auto 0.2 X10*3/uL (0.0-0.4); Eosinophils Percent Auto 2.9 % (0-4); Hemoglobin 11.4 g/dl (12.0-16.0); Imm Gran Abs Auto 0.02 X10*3/uL (0.00-0.03); Imm Gran Pct Auto 0.3 % (0.0-0.4); Lymphocytes Percent Auto 30.6 % (20-40); Mean Corpuscular HGB Conc 32.6 g/dl (31.0-35.0); Mean Corpuscular Hemoglobin 28.4 pg (27.0-33.0); Mean Corpuscular Volume 87.1 fL (80.0-98.0); Mean Platelet Volume 10.7 fL (9.4-12.3); Monocytes Absolute Auto 0.5 X10*3/uL (0.1-1.2); Neutrophils Absolute Auto 3.8 x10*3/uL (2.0-8.3); Neutrophils Percent Auto 58.1 % (45-73); Platelet Count 288 X10*3/uL (160-400); Red Blood Count 4.02 X10*6/uL (4.20-5.50); Red Cell Distribution Width 14.6 % (11.0-16.0); White Blood Count 6.5 X10*3/uL (4.8-10.8)
[2024-09-21 10:46] LABS: Estimated Average Glucose 117 mg/dL; Hemoglobin A1c % 5.7 % (<6.0); Total Hemoglobin (HGBA1C) 3030.5053 umol/L
[2024-09-21 11:05] LABS: Alanine Aminotransferase 18 U/L (0-31); Albumin Level 3.7 g/dL (3.5-5.0); Anion Gap 8 (12-20); Aspartate Amino Transferase 25 U/L (5-31); Bilirubin Total 0.4 mg/dL (0.0-1.0); Blood Urea Nitrogen 16 mg/dL (9-16); Calcium 8.7 mg/dL (8.4-10.2); Carbon Dioxide 27 mmol/L (22-29); Chloride 108 mmol/L (96-108); Cholesterol 197 mg/dL (<200); Estimated Glomerular Filt Rate > 60; Glucose Random 97 mg/dL (60-115); HDL Cholesterol 65 mg/dL (>40); Potassium 4.1 mmol/L (3.3-5.1); Sodium 139 mmol/L (135-145); Total Protein 6.7 g/dL (6.5-8.0); Triglycerides 69 mg/dL (<150)
[2024-09-21 11:06] LABS: Alkaline Phosphatase 61 U/L (39-117); Free T4 (Free Thyroxine) 0.93 ng/dL (0.71-1.85); LDL Cholesterol Calculated 119 mg/dL (<100); Thyroid Stimulating Hormone 1.88 uIU/mL (0.32-4.0); Vitamin D 25-OH Total 44.7 ng/mL (>30)
[2024-09-21 11:21] LABS: Folate 13.4 ng/mL (> or = 4.0); Vitamin B12 583 pg/mL (200-900)
[2024-09-21 13:29] LABS: Appearance Urine Clear; Color Urine Yellow; Glucose Urine UA Negative (Negative); Leukocyte Esterase Urine Negative (Negative); Nitrite Urine Negative (Negative); Urine Blood Negative (Negative); Urine Ketones Negative (Negative); Urine Protein Negative (Neg-Trace)
== END 2024-09-21 06:50 | disposition home or self-care (01) ==
LOC: HO.HMGCLDS 06:49
PROVIDERS: PCP Internal Medicine; Visit Provider Internal Medicine
DX: R73.02 Impaired glucose tolerance (oral) (principal); E78.00 Pure hypercholesterolemia, unspecified; R30.0 Dysuria
CPT/HCPCS: 36415; 80053; 80061; 81003; 82306; 82607; 82746; 83036; 84439; 84443; 85025

== ENCOUNTER 2024-10-06 08:08 | Outpatient (REF) | payer MEDICARE, SELFPAY ==
--- NOTE | ~2024-10-06 | FL_ITS ---
EXAMINATION: XR UPPER GI SERIES WITH SMALL BOWEL CLINICAL INFORMATION: Dysphagia COMPARISON: None available. TECHNIQUE: Routine upper GI air contrast study and barium swallow was performed in upright view with thick barium, barium coated saltine crackers in barium tablet. Patient was placed prone lying and thin barium was administered. FINDINGS: On oral administration of saltine crackers there is normal oral mastication and propagation bolus from the oral cavity into the midesophagus. A thin barium was administered to changes the bolus with no evidence of obstruction or narrowing. On oral administration of thick barium and effervescent granules there is normal propagation bolus from the oral cavity through the pharynx into stomach. There is normal spontaneous passage of barium tablet from the oral cavity, pharynx, esophagus into stomach without holdup. No laryngeal penetration or aspiration seen. Placing patient supine and prone lying there is small sliding hiatal hernia with mild to moderate gastroesophageal reflux. Rest of the course of the stomach, duodenal bulb and sweep is normal. The mucosal pattern of the stomach and the duodenum is normal. FLUOROSCOPY TIME: 1 minute 43 seconds DOSE AREA PRODUCT: 1969 uGy-m2 (microgray-meter squared) FL/FL upper GI w air w Ba Swallow IMPRESSION: Small hiatal hernia with mild gastroesophageal reflux. Electronically signed by: Ramon Simms MD 10/06/2024 09:52 AM EDT
--- OUTSIDE RECORDS SUMMARY | 2024-10-06 08:13 | XMS_ITS | Data Portability ---
Author Organization KAY Doll [facility], [address] Address [address] [place] [address] Care Team Providers Care Balance Wheel Motion Inspector Name Role Phone [facility] Primary Care Provider Assessment No assessment recorded. Plan of Treatment Reminders Order Date Submit Date Provider Last Modified By Organization Details Last Modified Time Details Appointments None recorded. Lab None recorded. Referral None recorded. Procedures None recorded. Surgeries None recorded. Imaging None recorded. Medication Orders naproxen 500 mg tablet 2022 023 [facility], [address] [place] [address], [address], 3 15:08:30 cyclobenzap rine 10 mg tablet 2022 023 [facility], [address] [place], [address], 3 15:08:30 Patient TargetsNo targets recorded. Patient Instructions Encounter Date Encounter Id Patient Instructions Last Modified By Organization Details Last Modified Time 06/17/2022 [id number] shoulder pain: care instructions Not available 06/17/2022 [...] your doctor if you can take an stmb-yev-phhgrix medicine. Do not take two or more [...] and Address Organization Details Recorded Time Neuropathy [id number] Active 023 MIYA KELLY null, PA - [facility] 3 14:36:09 Asthma 267071598 Active 023 MIYA LUPICA null, PA - [facility] 3 14:36:18 Acid reflux 258655660 Active 023 MIYA LUPICA null, PA - [...] ed KAY Boykin [facility] 3 14:33:50 [id number] Latex (substanc e) environme nt,medica tion other Not available Not available 06/17/2022 [id number] SNOMED numbi ng effec t KAY [...] Available Not Available No t Available vitamin B87-vdquf acid active Not Available Not Available Not [...] Updated DateTime 3 154.94 cm 41.6 kg/m2 12635.3 2 g 97 [degF] 98 % 98 % 71 /min 16 /min 126 mm[Hg] 80 mm[Hg] MIYA KELLY PA - [facility] 3 14:40:49 Social History Question Answer Notes LastModified by [facility] [employer] Details LastModified Time Tobacco Smoking Status Former Smoker MIYA KELLY null, PA - [facility] 06/17/2022 14:37:40 Have You Recently Traveled Abroad? No [email or web address] Information not available 06/17/2022 Sex: Unknown Functional Status Question Answer Note LastModified by Organizat ion Details LastModified Time Do you use any illicit or recreational drugs? No [email or web address] Information not available 06/17/2022 What is your level of alcohol consumption? Occasional Information not available 06/17/2022 Mental Status None recorded. Family History Relationship Description Onset Age of this Age Resolved Age Notes LastModified by Organization Details LastModified Time Unspecified Relation Malignant neoplasm of lung Not available 2022 14:36:58 Unspecified Relation Malignant neoplastic disease [email or web address] Not available 2022 14:37:04 Medical History No medical history recorded. Gynecological HistoryNo gynecological history recorded. Obstetrics History GPAL:G 0 P 0 0 0 0 Past Encounters Encounter ID Performer Location Encounter Start Date Encounter Closed Date Diagnosis/Indication Diagnosis SNOMED-CT Code Diagnosis ICD10 Code Diagnosis Note [id number] [facility] [facility] [place] [address] 04/20/2017 10:42:53 04/20/2017 12:13:44 [id number] [address] [facility] [address] [place] [address] 11/17/2016 14:16:03 11/17/2016 14:42:52 [id number] [address] [facility] [place] [address] 05/10/2017 11:25:47 05/10/2017 12:21:42 [id number] Dipesh Cummings NP [address] [facility] [address] [place] [address] 06/17/2022 10:47:45 06/17/2022 15:11:09 Pain of right shoulder joint [id number] M25.511 Health Concerns Section Related Observation LastModified by Organization Detai ls LastModified Time None Recorded Concern Status LastModified by Organization Details LastModified Time None Recorded Advance Directives Directive None Recorded Payers Insurance Date Sequence Insurance Name Policy Number Policy Flood Covered Member ID Flood Member ID Guarantor Name 06/17/2022 1 [facility] [id number] Bibiana Connell [id number] Bibiana Connell Notes Date Note Type Note [...] NP [address] [place], [address], [place] - [facility] 06/17/2022 15:08:51 OBGyn Episode No OBEpisode recorded.
== END 2024-10-06 08:09 | disposition home or self-care (01) ==
LOC: HO.XRAY 08:08
PROVIDERS: PCP Internal Medicine; Visit Provider Internal Medicine
DX: R13.10 Dysphagia, unspecified (principal); K44.9 Diaphragmatic hernia without obstruction or gangrene; K21.9 Gastro-esophageal reflux disease without esophagitis
CPT/HCPCS: 74246

== ENCOUNTER → 2024-10-06 08:17 | Outpatient (BNV) | payer MEDICARE, SELFPAY | PROVIDERS: PCP Internal Medicine; Visit Provider Radiology Diagnostic Radiology | DX: K44.9 Diaphragmatic hernia without obstruction or gangrene (principal) | CPT/HCPCS: 74246 ==

== ENCOUNTER 2024-10-18 10:46 | Outpatient (AMB) | payer MEDICARE, SELFPAY ==
[2024-10-18 10:52] VITALS: BP 108/62; PULSE 69; O2SAT 96; BMI 44.4
--- NOTE | 2024-10-18 10:52 | MHC.PC.OV ---
Vital Signs 10/18/24 10:52 10/18/24 11:53 Height 5 ft Weight 227 lb 4 oz BMI 44.4 BP 108/62 120/60 Blood Pressure Location Lt brachial Lt brachial Position Sitting Sitting Pulse 69 Pulse Source Pulse Oximeter Pulse Oximetry (%) 96 Oxygen Delivery Method Room Air Intake Visit Reasons: obesity Workers Compensation Legal Secretary Required: No Accompanied by: Self / Same As Patient Allergies codeine Allergy (Unknown, Verified 10/18/24 10:53) Unknown latex [Latex] Allergy (Unknown, Verified 10/18/24 10:53) BURNING oxycodone [Oxycodone] Allergy (Unknown, Verified 10/18/24 10:53) FAINT/TACHYCARDIA tramadol Adverse Reaction (Intermediate, Verified 10/18/24 10:53) ORELLANA Medication List - Last Reconciled 10/18/24 by Vern Saul MD albuterol sulfate 90 mcg/actuation 2 puffs inhalation Q6H PRN alprazolam 0.5 mg PO BEDTIME PRN 30 days aqygwgp-wlcdswvnylhua-jcyocaoj 250-250-65 mg (Excedrin Migraine) 2 tabs PO Q6H PRN [AUTO PAP 6-20 cm water Humidified Air Sleep study done 04/15/2024 showing moderately severe AHI of 18 with nocturnal hypoxemia advised auto PAP mode 6-20 cm water.] cyanocobalamin (vitamin B-12) 1,000 mcg PO DAILY epinephrine 0.3 mg (0.3 mL) IM Q10M PRN epinephrine 0.3 mg (0.3 mL) IM Q10M PRN fluticasone furoate-vilanterol 100-25 mcg/dose (Breo Ellipta) 1 ea PO DAILY gabapentin 1-2 cap orally bedtime PRN; lisinopril 10 mg PO DAILY 90 days meloxicam 15 mg PO DAILY omeprazole 20 mg PO DAILY tirzepatide (weight loss) 5 mg (0.5 mL) subcut QWEEK 30 days Tobacco use date assessed: 10/18/24 Fall risk assessment: No Falls in past year Last assessed Fall Risk: 10/18/24 Dental Screening Dental Screen Date: 10/18/24 Did you have a dental visit in the last 12 months?: Yes Did you have a dental problem in the last 6 months where you did not have access to dental care?: No Was dental information given to patient?: Patient has dentist [facility] Medical History Asthma, persistent controlled Pre-operative clearance Knee pain, right Iron deficiency anemia Thrombophlebitis Hip pain, left COVID-19 virus infection Synovial cyst of popliteal space [Neal], left knee Hiatal hernia Migraine Peripheral vascular disease Hypertension Obesity Vitamin D deficiency Hypercholesterolemia GERD (gastroesophageal reflux disease) Asthma Peripheral neuropathy Surgical History History of esophagogastroduodenoscopy (EGD) Hx of colonoscopy History of vein stripping History of carpal tunnel release History of appendectomy History of section Family History Father Lung cancer Mother Lung cancer Paternal Grandfather Lung cancer Paternal Uncle Lung cancer Myocardial infarct Sister Pancreatic cancer Social History Household Members: Spouse Housing: House Are you a primary lawn care technician to a significant other at home: No Do you presently have visiting nurse or other home services: No Alcohol intake: current Alcohol intake frequency: holidays/special occasions only Alcohol type: beer and wine Comment: 2 days week 2 drinks Patient Tobacco Use Status: Former Tobacco user Tobacco use type: Cigarette Years Smoked: quit in the 's e-Cigarette/Vaping Use: Never Used Second Hand Smoke Exposure: Yes service: No Current occupational status: retired Current occupation: rt handed Cognitive needs: No Hearing needs: No Vision needs: Yes (Glasses) Questionnaire PHQ-9 Over the last 2 weeks, how often have you been bothered by any of the following problems? 1. Little interest or pleasure in doing things: not at all 2. Feeling down, depressed, or hopeless: not at all 3. Trouble falling or staying asleep, or sleeping too much: not at all 4. Feeling tired or having little energy: not at all 5. Poor appetite or overeating: not at all 6. Feeling bad about yourself - or that you are a failure or have let yourself or your family down: not at all 7. Trouble concentrating on things, such as reading the newspaper or watching television: not at all 8. Moving or speaking so slowly that other people could have noticed. Or the opposite - being so fidgety or restless that you have been moving around a lot more than usual: not at all 9. Thoughts that you would be better off or of hurting yourself in some way: not at all Total score: 0 Depression Screening Interpretation: Negative Depression Screening Done: Yes Source: Developed by Drs. Rolando Dominguez, Terri Ca, Kwame Gonzalez and colleagues, with an educational stacy from [employer]. Thrive Questionnaire Date Thrive assessed: 10/18/24 I am a: Patient What is your living situation today?: I have a steady place to live Within the past 12 months, did the food you bought not last and you didn't have the money to get more?: Never true Within the past 12 months, did you worry whether your food would run out before you got money to buy more?: Never true Do you have trouble paying for medicines?: No Do you have trouble getting transportation to medical appointments?: No Do you have trouble paying your heating and electricity bill?: No Do you have trouble taking care of your child, family member or friend?: No Do you have trouble with day-to-day activities such as bathing, preparing meals, shopping, managing finances, etc.?: No Are you currently unemployed and looking for a job?: No Are you interested in more education?: No Please select the resources that you would like help with: None Currently or been in a relationship where the following occur: I choose not to answer THRIVE Score: 0 AUDIT C Alcohol Use Questionnaire (AUDIT-C) 1. How often do you have a drink containing alcohol?: 2-4 times a month 2. How many drinks containing alcohol do you have on a typical day when you are drinking?: 1 or 2 3. How often do you have six or more drinks on one occasion?: Never Total Score: 2 BJORN-7 AMB Questionnaire BJORN-7 Date BJORN - 7 assessed: 10/18/24 Feeling nervous, anxious, or on edge: 0 = Not at all Not being able to stop or control worryin = Not at all Worrying too much about different things: 0 = Not at all Trouble relaxin = Not at all Being so restless that it is hard to sit still: 0 = Not at all Becoming easily annoyed or irritable: 0 = Not at all Feeling afraid as if something awful might happen: 0 = Not at all Total BJORN-7 score (0-4 normal; 5-9 mild; 10-14 moderate; 15-21 severe): 0 Source: Developed by Drs. Rolando Dominguez, Terri Ca, Kwame Gonzalez and colleagues, with an educational stacy from [employer]. Physical exam (Primary Care) Vital Signs: Last Vital Signs Pulse 69 10/18/24 10:52 BP 120/60 10/18/24 11:53 Pulse Ox 96 10/18/24 10:52 Oxygen Delivery Method Room Air 10/18/24 10:52 BMI result Body Mass Index 44.4 Tobacco/Smoking Status: Tobacco use Status Tobacco use date assessed 10/18/24 10/18/24 11:00 Patient Tobacco Use Status Former Tobacco user 10/18/24 11:00 Tobacco use type Cigarette 10/18/24 11:00 e-Cigarette/Vaping Use Never Used 10/18/24 11:00 PHQ-9: PHQ-9 Score PHQ-9: Total score 0 10/18/24 12:30 Depression Screening Interpretation: Negative Thrive Assessment: Date of Thrive Assessment Date Thrive assessed 10/18/24 10/18/24 11:00 Currently or been in a relationship where the following occur: I choose not to answer Const General: alert; No acute distress Eyes Conjunctivae: conjunctivae normal Resp Auscultation: clear to auscultation bilaterally Cardio Rate: regular rate Rhythm: regular rhythm GI Inspection: Yes normal to inspection Extrem General: Yes normal to inspection and No edema Immunizations Tenivac (PF) 5 Lf unit-2 Lf unit/0.5 mL intramuscular syringe Performing Provider: Vern Saul MD [facility] Administered by: BENJAMIN Lucas on 10/18/24 12:30 Dose Route Admin Location Dispensed Lot Number Expiration Date [facility] Senior Mechanical Development Engineer 0.5 mL IM Left Deltoid 0.5 mL [id number] 07/03/26 [id number] [employer] VIS Given Date VIS Provided VIS Publication Date 10/18/24 Single Vaccine 20 Eligibility Eligibility Date Funding Source Not VFC Eligible 10/18/24 Private Coding Level of Care Code Est Pt Level 4 (94232) Complex EM visit Add On G2211 Diagnoses Urticaria L50.9 Impaired glucose tolerance R73.02 Morbid obesity E66.01 Obstructive sleep apnea hypopnea, moderate G47.33 Anemia, unspecified type D64.9 Anemia type: unspecified type Generalized anxiety disorder F41.1 Hypercholesterolemia E78.00 Gastroesophageal reflux disease without esophagitis K21.9 Esophagitis presence: without esophagitis Assessment & Plan Assessment & Plan (1) Urticaria: Code(s): L50.9 - Urticaria, unspecified Category: Medical Plan: This has resolved but did not find out the cause (2) Impaired glucose tolerance: Code(s): R73.02 - Impaired glucose tolerance (oral) Category: Medical Plan: Decrease the amount of carbohydrate intake, pasta, bread, rice and potatoes are all sugar and that is aside from all the sweet stuff, remember that fruits are good but they are Sweet also. (3) Morbid obesity: Code(s): E66.01 - Morbid (severe) obesity due to excess calories Category: Medical Plan: Diet and exercise patient on tirzepatide and increase in dose advised. (4) Obstructive sleep apnea hypopnea, moderate: Comment: Sleep study done 04/15/2024 showing moderately severe AHI of 18 with nocturnal hypoxemia advised auto PAP mode 6-20 cm water. Code(s): G47.33 - Obstructive sleep apnea (adult) (pediatric) Category: Medical Plan: Continue with CPAP more than 4 hours a night and benefits from the (5) Anemia: Code(s): D64.9 - Anemia, unspecified Category: Medical Qualifiers: Anemia type: unspecified type Qualified Code(s): D64.9 - Anemia, unspecified Plan: Will continue to monitor (6) Generalized anxiety disorder: Code(s): F41.1 - Generalized anxiety disorder Category: Medical Plan: Continue with alprazolam as needed (7) Hypercholesterolemia: Code(s): E78.00 - Pure hypercholesterolemia, unspecified Category: Medical Plan: Avoid fried foods, chicken skin, eggs, butter margarine, pastries and meat. Be it pork or beef they have a lot of cholesterol LDL goal of less than 130 and triglyceride of less than 150 (8) GERD (gastroesophageal reflux disease): Code(s): K21.9 - Gastro-esophageal reflux disease without esophagitis Category: Medical Qualifiers: Esophagitis presence: without esophagitis Qualified Code(s): K21.9 - Gastro-esophageal reflux disease without esophagitis Plan: Avoid the foods that causes that usually spicy foods, tomato products, juices, coffee, soda and foods that your sensitive to. After eating do not lie down, allow 3-4 hours before in lie down. And keep the head of bed above 30 degrees to avoid the acid from going up. Plan History of Present Illness The patient is a 64-year-old female presenting for follow-up on impaired glucose tolerance and other chronic conditions. She has a history of morbid obesity, asthma, gastroesophageal reflux disease (GERD), hypercholesterolemia, hypertension, and generalized anxiety disorder. The patient reports a recent 4-pound weight loss. Her last blood work in September showed mild anemia, normal electrolytes, renal function, and a hemoglobin A1c of 5.7%. Liver function tests were normal, and her LDL cholesterol was 119 mg/dL. The patient has a history of dysphagia, and an upper GI series revealed a small hiatal hernia with mild reflux. She was seen in the emergency room on August 19 for a diagnosis oforticuria. Her bone density test indicated osteopenia with a 2.7% change in the lumbar spine. Preventative care measures include an up-to-date mammogram and bone density test, with a colonoscopy last performed in February 2021. Health Maintenance - Mammogram up to date - Bone density up to date - Colonoscopy performed in February 2021 Social History Review of Systems Physical Exam Results - Labs: Mild anemia, normal electrolytes, renal function, hemoglobin A1c 5.7%, normal liver function, LDL cholesterol 119 mg/dL, B12, vitamin D, folic acid, and thyroid within normal limits - Imaging: Upper GI series showing a small hiatal hernia with mild reflux - Bone Density: Osteopenia with a 2.7% change in the lumbar spine Plan The patient will continue with diet and exercise to manage impaired glucose tolerance and weight loss. She is advised to continue using the CPAP machine for more than 4 hours a night, as it has been beneficial. Alprazolam will be continued as needed for anxiety management. For cholesterol management, the goal is to maintain LDL levels below 130 mg/dL and triglycerides below 150 mg/dL. The patient will be monitored regularly to ensure these targets are met. Patient was informed and verbally consented to the use of an ambient scribe for clinic note documentation during this visit. Discussion Notes Patient Instructions - Continue diet and exercise regimen to manage weight and glucose levels. - Use CPAP machine for more than 4 hours each night. - Take alprazolam as needed for anxiety. - Monitor cholesterol levels to maintain LDL below 130 mg/dL and triglycerides below 150 mg/dL. Orders: Orders Td Immunization Today Z23 - Encounter for immunization Medications: Changed From tirzepatide (weight loss) (Zepbound) for 4 weeks 2.5 mg (0.5 mL) subcut QWEEK 2 mL 3RF E66.01 - Morbid (severe) obesity due to excess calories, G47.33 - Obstructive sleep apnea (adult) (pediatric) To tirzepatide (weight loss) for 4 weeks 5 mg (0.5 mL) subcut QWEEK 2.5 mL 3RF 30 days E66.01 - Morbid (severe) obesity due to excess calories, G47.33 - Obstructive sleep apnea (adult) (pediatric)
[2024-10-18 11:53] VITALS: BP 120/60
--- OUTSIDE RECORDS SUMMARY | 2024-10-18 12:09 | XMS_ITS | Data Portability ---
Author Organization KAY Doll [facility], [address] Address [address] [place] [address] Care Team Providers Care Industrial Organizational Psychologist Name Role Phone [facility] Primary Care Provider [phone] Assessment No assessment recorded. Plan of Treatment Reminders Order Date Submit Date Provider Last Modified By Organization Details Last Modified Time Details Appointments None recorded. Lab None recorded. Referral None recorded. Procedures None recorded. Surgeries None recorded. Imaging None recorded. Medication Orders naproxen 500 mg tablet 2022 023 [facility], [address] [place] [address], [address], 3 15:08:30 cyclobenzap rine 10 mg tablet 2022 023 [facility], [address] [place], [address], 3 15:08:30 Patient TargetsNo targets recorded. Patient Instructions Encounter Date Encounter Id Patient Instructions Last Modified By Organization Details Last Modified Time 06/17/2022 [id number] shoulder pain: care instructions Not available 06/17/2022 [...] your doctor if you can take an arqq-six-sjhrzkm medicine. Do not take two or more [...] and Address Organization Details Recorded Time Neuropathy 569655478 Active 023 MIYA KELLY null, [place] - [facility] 3 14:36:09 Asthma 538505562 Active 023 MIYA LUPICA null, PA - [facility] 3 14:36:18 Acid reflux 579751877 Active 023 MIYA LUPICA null, PA - [...] ed KAY Boykin [facility] 3 14:33:50 [id number] Latex (substanc e) environme nt,medica tion other Not available Not available 06/17/2022 [id number] SNOMED numbi ng effec t KAY [...] Available Not Available No t Available vitamin G40-doygg acid active Not Available Not Available Not [...] Updated DateTime 3 154.94 cm 41.6 kg/m2 59251.3 2 g 97 [degF] 98 % 98 % 71 /min 16 /min 126 mm[Hg] 80 mm[Hg] MIYA KELLY PA - [facility] 3 14:40:49 Social History Question Answer Notes LastModified by [employer] Details LastModified Time Tobacco Smoking Status Former Smoker MIYA KELLY null, PA - [facility] 06/17/2022 14:37:40 Have You Recently Traveled Abroad? No [email or web address] Information not available 06/17/2022 Sex: Unknown Functional Status Question Answer Note LastModified by Organizat ion Details LastModified Time Do you use any illicit or recreational drugs? No [email or web address] Information not available 06/17/2022 What is your level of alcohol consumption? Occasional Information not available 06/17/2022 Mental Status None recorded. Family History Relationship Description Onset Age of this Age Resolved Age Notes LastModified by Organization Details LastModified Time Unspecified Relation Malignant neoplasm of lung [email or web address] Not available 2022 14:36:58 Unspecified Relation Malignant neoplastic disease [email or web address] Not available 2022 14:37:04 Medical History No medical history recorded. Gynecological HistoryNo gynecological history recorded. Obstetrics History GPAL:G 0 P 0 0 0 0 Past Encounters Encounter ID Performer Location Encounter Start Date Encounter Closed Date Diagnosis/Indication Diagnosis SNOMED-CT Code Diagnosis ICD10 Code Diagnosis Note [id number] [facility] [address] [place] [address] 04/20/2017 10:42:53 04/20/2017 12:13:44 [id number] [address] [facility] [address] [place] [address] 11/17/2016 14:16:03 11/17/2016 14:42:52 [id number] [address] [facility] [address] [place] [address] 05/10/2017 11:25:47 05/10/2017 12:21:42 [id number] Dipesh Cummings [place] [address] [facility] [address] [place] [address] 06/17/2022 10:47:45 06/17/2022 15:11:09 Pain of right shoulder joint [id number] M25.511 Health Concerns Section Related Observation LastModified by Organization Detai ls LastModified Time None Recorded Concern Status LastModified by Organization Details LastModified Time None Recorded Advance Directives Directive None Recorded Payers Insurance Date Sequence Insurance Name Policy Number Policy Flood Covered Member ID Flood Member ID Guarantor Name 06/17/2022 1 [facility] [id number] Bibiana Connell [id number] Bibiana Connell Notes Date Note Type Note [...] NP [address] [place], [address], [place] - [facility] 06/17/2022 15:08:51 OBGyn Episode No OBEpisode recorded.
== END 2024-10-18 12:05 | disposition home or self-care (01) ==
LOC: HO.HMCH 10:47
PROVIDERS: PCP Internal Medicine; Visit Provider Internal Medicine
DX: R73.02 Impaired glucose tolerance (oral) (principal); E66.01 Morbid (severe) obesity due to excess calories; Z68.41 Body mass index [BMI] 40.0-44.9, adult; L50.9 Urticaria, unspecified; G47.33 Obstructive sleep apnea (adult) (pediatric); D64.9 Anemia, unspecified; F41.1 Generalized anxiety disorder; E78.00 Pure hypercholesterolemia, unspecified; K21.9 Gastro-esophageal reflux disease without esophagitis; Z23 Encounter for immunization

== ENCOUNTER → 2024-10-18 10:46 | Outpatient (BNVA) | payer MEDICARE, SELFPAY | PROVIDERS: PCP Internal Medicine; Visit Provider Internal Medicine | DX: Z23 Encounter for immunization (principal); R73.02 Impaired glucose tolerance (oral); E66.01 Morbid (severe) obesity due to excess calories; G47.33 Obstructive sleep apnea (adult) (pediatric); D64.9 Anemia, unspecified; F41.1 Generalized anxiety disorder; E78.00 Pure hypercholesterolemia, unspecified; K21.9 Gastro-esophageal reflux disease without esophagitis | CPT/HCPCS: 90471; 90714; 99212 ==

== ENCOUNTER 2024-12-29 09:44 | Outpatient (AMB) | payer MEDICARE, SELFPAY ==
--- NOTE | 2024-12-29 09:46 | MHC.OFFVIS ---
Vital Signs 12/29/24 09:47 Height 5 ft Intake Visit Reasons: 6 month PN Allergies codeine Allergy (Unknown, Verified 12/29/24 09:52) Unknown latex (Latex) Allergy (Unknown, Verified 12/29/24 09:52) BURNING oxycodone (Oxycodone) Allergy (Unknown, Verified 12/29/24 09:52) FAINT/TACHYCARDIA tramadol Adverse Reaction (Intermediate, Verified 12/29/24 09:52) ORELLANA Medication List - Last Reconciled 12/29/24 by Lorena Hebert CNP albuterol sulfate 90 mcg/actuation 2 puffs inhalation Q6H PRN alprazolam 0.5 mg PO BEDTIME PRN 30 days vmoizvy-guwlxintwxubh-ckyurkmw 250-250-65 mg (Excedrin Migraine) 2 tabs PO Q6H PRN [AUTO PAP 6-20 cm water Humidified Air Sleep study done 04/15/2024 showing moderately severe AHI of 18 with nocturnal hypoxemia advised auto PAP mode 6-20 cm water.] cyanocobalamin (vitamin B-12) 1,000 mcg PO DAILY epinephrine 0.3 mg (0.3 mL) IM Q10M PRN epinephrine 0.3 mg (0.3 mL) IM Q10M PRN fluticasone furoate-vilanterol 100-25 mcg/dose (Breo Ellipta) 1 ea PO DAILY gabapentin 100 mg PO BEDTIME PRN lisinopril 10 mg PO DAILY 90 days meloxicam 15 mg PO DAILY omeprazole 20 mg PO DAILY pramipexole 0.25 mg PO QPM tirzepatide (weight loss) (Zepbound) 7.5 mg (0.5 mL) subcut QWEEK HPI Comments Details: She was having more pain to right foot over the last month, tight-type feeling. Occasional sharp, shooting pains in legs. Pain was worse at night and disrupted sleep, trouble falling asleep and occasional woke from pains. Uses nervive and PRIM pain relief cream as needed. Numbness up to knees is unchanged. Balance is off at times, but no falls. Going for some walks, but is more cautious, walks slower and does not go as far. Taking gabapentin 100mg at bedtime, tried higher dose in the past and felt groggy the next day, but wanted to try increased dose as she has been on medication for some time now. Legs are bit more jumpy in the evening when trying to sit and relax, pramipexole not helping as much. Has to get up and walk around, and feels better. Will be driving to [place] with her to care for and settle in-laws into long term, planning to stay for about a month. Previously, legs felt jumpy and restless in evening and at night when trying to relax. She?got feeling and urge to move legs when sitting and watching plays. It felt better if she got up and walked around. Cramping in legs is better. Foot stiffness. Soles of feet are tender and cannot walk barefoot. Has annoying numbness and occasional sharp, brief pains like a sting on some days. Hx of prickly numbness and prickly sensation that started in toes and soles of feet in 2019 that extended to mid-crabtree level with some altered sensation that does not affect ability to sleep in 2020. Gabapentin helps. 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 Her older brother was diagnosed with peripheral neuropathy and was told that it may be inherited. No history of exposure to toxins or medications that are neurotoxic. 4 siblings have some neuropathic symptoms. Labs are normal. [facility] Medical History Asthma, persistent controlled Pre-operative clearance Knee pain, right Iron deficiency anemia Thrombophlebitis Hip pain, left COVID-19 virus infection Synovial cyst of popliteal space [Neal], left knee Hiatal hernia Migraine Peripheral vascular disease Hypertension Obesity Vitamin D deficiency Hypercholesterolemia GERD (gastroesophageal reflux disease) Asthma Peripheral neuropathy Surgical History History of esophagogastroduodenoscopy (EGD) Hx of colonoscopy History of vein stripping History of carpal tunnel release History of appendectomy History of section Family History Father Lung cancer Mother Lung cancer Paternal Grandfather Lung cancer Paternal Uncle Lung cancer Myocardial infarct Sister Pancreatic cancer Social History Household Members: Spouse Housing: House Are you a primary manager intensive care to a significant other at home: No Do you presently have visiting nurse or other home services: No Alcohol intake: current Alcohol intake frequency: holidays/special occasions only Alcohol type: beer and wine Comment: 2 days week 2 drinks Patient Tobacco Use Status: Former Tobacco user Tobacco use type: Cigarette Years Smoked: quit in the 70's e-Cigarette/Vaping Use: Never Used Second Hand Smoke Exposure: Yes service: No Current occupational status: retired Current occupation: rt handed Cognitive needs: No Hearing needs: No Vision needs: Yes (Glasses) Review of Systems Const Denies chills, Denies daytime sleepiness, Reports difficulty sleeping, Denies fatigue, Denies fever(s), Denies frequent falls, Denies headache(s), Denies increased appetite, Denies poor appetite, Denies snoring, Denies weakness, Denies weight gain and Denies weight loss Eyes Denies loss of vision ENT Denies vertigo, Denies dizziness, Denies headache(s) and Denies neck pain Card Denies chest pain at rest, Denies chest pain with activity, Denies syncope, Denies leg edema, Denies palpitations, Denies dyspnea and Denies dyspnea on exertion Resp Denies cough, Denies dyspnea, Denies dyspnea on exertion and Denies snoring GI Denies abdominal pain, Denies constipation, Denies heartburn, Denies diarrhea and Denies nausea Denies urinary frequency, Denies urinary incontinence and Denies urinary urgency Musc Denies abnormal gait, Reports back pain, Reports myalgias, Reports arthralgias, Denies neck pain, Reports numbness and Reports tingling Neuro Denies abnormal gait, Denies vertigo, Denies dizziness, Denies syncope, Denies frequent falls, Denies headache(s), Denies lack of coordination, Denies loss of vision, Denies memory loss, Reports numbness, Denies Other visual disturbances, Denies restless legs, Denies seizure-like activity, Reports tingling, Denies paresthesias, Denies tremor(s) and Denies weakness Psych Denies anxiety, Denies depression, Denies auditory hallucinations, Denies memory loss and Denies visual hallucinations Endo Denies fatigue and Denies palpitations Physical Exam Const Other: General Appearance:? normal, in no acute distress. Heart:? S1, S2 normal, no murmurs. Lungs:? clear anteriorly and posteriorly. Musculoskeletal:? normal. Extremities:? no edema. Psych:? alert, oriented, cognitive function intact, cooperative with exam. Neuro Other: Abnormal Neurological Findings:?Absent knee and ankle reflexes.?Impaired vibration sensation below?R ankle Mental Status: alert and oriented X 3. Normal attention, orientation, memory, and affect. Cranial Nerves: Pupils are equal, round, and reactive to light. External ocular muscles are intact. Visual lim are full, no ptosis. Face is symmetrical, no facial weakness or droop. Facial sensations are normal. Tongue protrudes in midline. Palate elevates symmetrically. Shoulder shrugging is normal Motor Examination: Normal muscle tone, bulk and strength. No atrophy or fasciculations. No drift of the extended upper extremities. DTR 2+ in UEs, absent in LEs. Plantars are flexor. Sensory Exam: As above, otherwise normal light touch, temperature, pinprick, vibration, and joint-position sensations. Rhomberg sign is absent. Coordination: No ataxia. No titubation. Gait Exam: Within normal limits. Cerebellar Signs: Trnjmc-hv-ewau is okay. Extrapyramidal System: No tremor, rigidity with normal facial expressions. No bradykinesia. No bradyphrenia. Normal arm swing and posture. No propulsion or retropulsion. Speech: Normal. Results Reviewed Results Reviewed: 10/27/19 nerve conduction study shows sensory greater than motor axonal peripheral neuropathy diffusely in the lower extremities. EMG consistent with chronic distal neuropathic changes Assessment & Plan Assessment & Plan (1) Peripheral neuropathy: Comment: [facility] October 2019 Code(s): G62.9 - Polyneuropathy, unspecified Category: Medical Qualifiers: Peripheral neuropathy type: polyneuropathy, unspecified Qualified Code(s): G62.9 - Polyneuropathy, unspecified Plan: Increase gabapentin 100mg 1-2 capsules at bedtime, use/side effects reviewed. Stay physically active. (2) Restless leg syndrome: Code(s): G25.81 - Restless legs syndrome Category: Medical Plan: Continue pramipexole 0.25mg 1 tablet in the evening. Increased dose of gabapentin may also help with RLS symptoms. Plan Meds tried: Gabapentin Medications: Changed From gabapentin 100 mg PO BEDTIME PRN To gabapentin 100 - 200 mg (1 - 2 x 100 mg) PO BEDTIME 90 days 180 caps 1RF Refilled gabapentin 100 - 200 mg (1 - 2 x 100 mg) PO BEDTIME 180 caps 1RF 90 days Coding Level of Care Code Est Pt Level 4 (52974) Diagnoses Peripheral polyneuropathy G62.9 Peripheral neuropathy type: polyneuropathy, unspecified Restless leg syndrome G25.81
--- OUTSIDE RECORDS SUMMARY | 2024-12-29 10:24 | XMS_ITS | Patient Health Record ---
Author Organization [facility] Address [address] [place] [id number] Care Team Providers Care Supervisor [employer] Name Role Phone Po Vern CABRERA Primary Care Provider Rolando Coughlin [phone] Allergies Allergen (clinical drug ingredient) Drug/Non Drug [...] Status Risk Notes Problem Iron deficiency anemia (55915990) Iron deficiency anemia (D50.9) Active confirmed Problem Gastric polyp (09201687) Gastric polyp (K31.7) Active confirmed Problem 70023592 Iron deficiency anemia, unspecified iron deficiency anemia type (D50.9) Active confirmed Problem Gastroesophageal reflux (K21.9) Active confirmed Problem Diverticulosis of colon (552677115) Diverticulosis of colon (K57.30) Active confirmed Problem [id number] Gastroesophageal reflux disease, unspecified whether esophagitis present [...] Insured Coverage Start Date Coverage End Date [facility] [address] [place] [phone] [id number] KASIE MONTEIRO Self - patient is the insured Medical (General) History Medical History History ICD Code Colonoscopy 07-05-2002 was neg ative; colonoscopy in 10/2011 was neg. except for a hyperplastic polyp Migraines Anxiety Denies CO,DM,CVA,Lung disease,renal dise ase GERD-EGD 10/2011 was neg. exc ept for a small HH--no Garcia's nor esophagitis; duodenal biopsies were normal Hypertension Asthma COVID in 03/2020 Surgical History Surgery Date(Month/Year) C-sections (4) appy vein stripping hand operation
--- OUTSIDE RECORDS SUMMARY | 2024-12-29 10:24 | XMS_ITS | Clinical Summary ---
Author Organization [employer] Address [address] [place] [address] [address] [place] [address] Care Team Providers Care Presser Hand Name Role Phone Unavailable Primary Care Provider [...] - 2023-2 5 season) 2024 Influenza Vaccine (#1) 2025 , 01/16/2021 HIB Vaccines Aged Out No longer [...] age to complete [place] [id number] [facility] MEDEX CARE
== END 2024-12-29 10:16 | disposition home or self-care (01) ==
LOC: HO.HSM 09:45
PROVIDERS: PCP Internal Medicine; Referring Provider Internal Medicine; Visit Provider Registered Nurse
DX: G62.9 Polyneuropathy, unspecified (principal); G25.81 Restless legs syndrome
CPT/HCPCS: 99214

== ENCOUNTER → 2024-12-29 09:44 | Outpatient (BNVA) | payer MEDICARE, SELFPAY | PROVIDERS: PCP Internal Medicine; Referring Provider Internal Medicine; Visit Provider Registered Nurse | DX: G25.81 Restless legs syndrome (principal); G62.9 Polyneuropathy, unspecified | CPT/HCPCS: 99212 ==